=== PATIENT | female | born 1940 | race Caucasian/White ===

== ENCOUNTER 2020-09-27 16:51 | Inpatient (IN) | payer OTHER, MEDICARE ==
[2020-09-27 17:19] VITALS: BMI 45.7
[2020-09-27] MEDS ORDERED: DEXAMETHASONE SOD PHOSPHATE 4 MG/1 ML VIAL IVPUSH ONE (18:18)
[2020-09-27] MEDS ORDERED: AZITHROMYCIN IVPB 500 MG in DEXTROSE 5%-WATER - 250 ML IVPB ONE (18:20)
[2020-09-27] MEDS ORDERED: CEFTRIAXONE 1,000 MG in DEXTROSE 5%-WATER - 50 ML IVPB ONE (18:20)
[2020-09-27 19:18] LABS: BASO % 0.9 % (0-2.0); HEMATOCRIT 40.9 % (32.4-45.2); LYMPH % 12.5 % (8-40); MCH 27.1 pg (25.7-33.7); MCHC 31.8 g/dl (32.0-36.0); MEAN PLT VOLUME 9.1 fl (7.5-11.1); MONO % 9.2 % (3.8-10.2); NEUT % 77.4 % (42.8-82.8); PLATELET COUNT 214 K/MM3 (134-434); RBC 4.82 M/mm3 (3.60-5.2); RDW 14.9 % (11.6-15.6); VENOUS BASE EXCESS -3.7 mmol/L (-2-2); VENOUS O2 SATURATION 61.7 % (70-80); VENOUS PCO2 39.9 mmHg (38-52); VENOUS PH 7.35 (7.310-7.410); WHITE BLOOD COUNT 11.2 K/mm3 (4.0-10.0)
[2020-09-27 19:23] LABS: EPI CELLS >36 /uL (0-25.1); HYALINE CASTS 8 /uL (0-3.1); PH,URINE 5.5 (5.0-8.0); URINE APPEARANCE CLOUDY; URINE BACTERIA 13 /uL (0-1359); URINE BILIRUBIN NEGATIVE (NEGATIVE); URINE COLOR YELLOW; URINE GLUCOSE (UA) TRACE (NEGATIVE); URINE KETONE TRACE (NEGATIVE); URINE LEUK ESTERASE NEGATIVE (NEGATIVE); URINE NITRITE NEGATIVE (NEGATIVE); URINE PROTEIN 3+ (NEGATIVE); URINE RBC 7 /uL (0-23.9); URINE UROBILINOGEN 0.2 mg/dL (0.2-1.0); URINE WBC 16 /uL (0-25.8)
[2020-09-27 19:24] LABS: INR 1.16 (0.83-1.09)
[2020-09-27 19:38] LABS: CHLORIDE 104 mmol/L (98-107); POTASSIUM 4.5 mmol/L (3.5-5.1); SODIUM 136 mmol/L (136-145)
[2020-09-27 19:40] LABS: CALCIUM 8.6 mg/dL (8.5-10.1)
[2020-09-27 19:41] LABS: ALBUMIN 2.8 g/dl (3.4-5.0); ANION GAP 8 MMOL/L (8-16); BLOOD UREA NITROGEN 25.2 mg/dL (7-18); CO2 25 mmol/L (21-32); GLUCOSE,RANDOM 251 mg/dL (74-106)
[2020-09-27 19:43] LABS: BILIRUBIN,DIRECT 0.1 mg/dL (0.0-0.2)
[2020-09-27 19:44] LABS: CREATININE 1.5 mg/dL (0.55-1.3); SGOT/AST 78 U/L (15-37); SGPT/ALT 48 U/L (13-61)
[2020-09-27 19:45] LABS: BILIRUBIN,TOTAL 0.3 mg/dL (0.2-1); TOT PROT 6.9 g/dl (6.4-8.2)
[2020-09-27 19:47] LABS: ALK PHOS 92 U/L (45-117)
[2020-09-27] MEDS ORDERED: CEFTRIAXONE 1 GM/50 ML BAG ONE ×2 (19:59→20:09)
[2020-09-27] MEDS ORDERED: AZITHROMYCIN IVPB 500 MG/250 ML BAG IVPB ONE ×2 (20:00→20:09)
[2020-09-27] MEDS ORDERED: DEXAMETHASONE 4 MG TABLET (FP) PO ONE (20:30)
[2020-09-27] MEDS ORDERED: ENOXAPARIN NA (PORCINE) 40 MG/0.4 ML DISP.SYRIN SQ ONE ×2 (20:30→23:30)
[2020-09-27 20:33] LABS: LDH 581 U/L (84-246)
[2020-09-27] MEDS ORDERED: DEXAMETHASONE SOD PHOSPHATE 10 MG/1 ML VIAL ONE (20:36)
[2020-09-27 20:50] LABS: N-TERMINAL BNP 284.6 pg/ml (5-450)
[2020-09-27] MEDS ORDERED: APIXABAN 5 MG TABLET PO SCH (22:00)
[2020-09-27] MEDS ORDERED: ACETAMINOPHEN 325 MG TABLET (FP) PO PRN (22:43)
[2020-09-27] MEDS ORDERED: ACETAMINOPHEN 325 MG TABLET (FP) ONE (23:30)
[2020-09-27] MEDS: ENOXAPARIN NA (PORCINE) 120 MG/0.8 ML DISP.SYRIN SQ SCH (23:42)
[2020-09-28 07:36] LABS: HEMATOCRIT 36.6 % (32.4-45.2); HEMOGLOBIN 11.8 GM/dL (10.7-15.3); MCH 27.3 pg (25.7-33.7); MCHC 32.1 g/dl (32.0-36.0); MEAN CELL VOLUME 84.9 fl (80-96); MEAN PLT VOLUME 8.9 fl (7.5-11.1); PLATELET COUNT 200 K/MM3 (134-434); RBC 4.31 M/mm3 (3.60-5.2); RDW 15.2 % (11.6-15.6); WHITE BLOOD COUNT 9.9 K/mm3 (4.0-10.0)
[2020-09-28 07:47] LABS: POTASSIUM 4.7 mmol/L (3.5-5.1)
[2020-09-28 07:53] LABS: CALCIUM 7.6 mg/dL (8.5-10.1)
[2020-09-28 07:56] LABS: ALBUMIN 2.2 g/dl (3.4-5.0); BLOOD UREA NITROGEN 34.5 mg/dL (7-18); MAGNESIUM 2.1 mg/dL (1.8-2.4)
[2020-09-28 07:57] LABS: PHOSPHOROUS 3.7 mg/dL (2.5-4.9)
[2020-09-28 07:58] LABS: BILIRUBIN,TOTAL 0.4 mg/dL (0.2-1)
[2020-09-28 07:59] LABS: CREATININE 1.6 mg/dL (0.55-1.3); TOT PROT 6.2 g/dl (6.4-8.2)
[2020-09-28] MEDS ORDERED: ASCORBIC ACID 500 MG TABLET (FP) ONE ×2 (09:11→22:43)
[2020-09-28] MEDS ORDERED: DEXAMETHASONE SOD PHOSPHATE 10 MG/1 ML VIAL ONE (09:12)
[2020-09-28] MEDS ORDERED: AZITHROMYCIN IVPB 500 MG/250 ML BAG IVPB ONE ×2 (09:12→13:21)
[2020-09-28] MEDS ORDERED: CEFTRIAXONE 1 GM/50 ML BAG ONE (09:12)
[2020-09-28] MEDS ORDERED: ZINC SULFATE 220 MG CAPSULE (FP) ONE (09:12)
[2020-09-28] MEDS ORDERED: CHOLECALCIFEROL (VIT D3) 1,000 UNIT (25 MCG) TABLET PO SCH (10:00)
[2020-09-28] MEDS ORDERED: CEFTRIAXONE 1,000 GM in DEXTROSE 5%-WATER - 50 ML IVPB SCH (10:00)
[2020-09-28] MEDS: INSULIN SLIDING SCALE (NOVOLOG) 1 VIAL SQ SCH ×4 (11:30→23:35)
[2020-09-28] MEDS: DEXAMETHASONE SOD PHOSPHATE 10 MG/1 ML VIAL IVPUSH SCH (11:33)
[2020-09-28] MEDS: ZINC SULFATE 220 MG CAPSULE (FP) PO SCH (11:34)
[2020-09-28] MEDS: ASCORBIC ACID 500 MG TABLET (FP) PO SCH ×2 (11:35→23:36)
[2020-09-28] MEDS: CEFTRIAXONE 1 GM in DEXTROSE 5%-WATER - 50 ML IVPB SCH (11:35)
[2020-09-28] MEDS: CHOLECALCIFEROL (VIT D3) 1,000 UNIT (25 MCG) TABLET PO SCH (11:36)
[2020-09-28] MEDS: AZITHROMYCIN IVPB 500 MG/250 ML BAG IVPB SCH (14:03)
[2020-09-28] MEDS: ENOXAPARIN NA (PORCINE) 120 MG/0.8 ML DISP.SYRIN SQ SCH ×2 (15:34→23:35)
[2020-09-28] MEDS ORDERED: ACETAMINOPHEN 1000 MG/100 ML VIAL (NON FORMULARY) IVPB ONE (21:48)
[2020-09-28] MEDS ORDERED: ACETAMINOPHEN INJECTION 100 ML IVPB ONE (21:55)
[2020-09-28] MEDS ORDERED: INSULIN (LEVEMIR) 100 UNITS/ML UNITS SQ SCH (22:00)
[2020-09-28] MEDS ORDERED: ENOXAPARIN NA (PORCINE) 40 MG/0.4 ML DISP.SYRIN SQ ONE (22:43)
[2020-09-29] MEDS: INSULIN SLIDING SCALE (NOVOLOG) 1 VIAL SQ SCH ×4 (06:31→21:28)
[2020-09-29 07:18] LABS: BASO % 0.3 % (0-2.0); HEMATOCRIT 37.5 % (32.4-45.2); HEMOGLOBIN 12.1 GM/dL (10.7-15.3); LYMPH % 14.9 % (8-40); MCH 27.3 pg (25.7-33.7); MCHC 32.4 g/dl (32.0-36.0); MEAN CELL VOLUME 84.3 fl (80-96); MEAN PLT VOLUME 8.3 fl (7.5-11.1); MONO % 12.1 % (3.8-10.2); NEUT % 72.7 % (42.8-82.8); PLATELET COUNT 262 K/MM3 (134-434); RBC 4.44 M/mm3 (3.60-5.2); RDW 15.2 % (11.6-15.6); WHITE BLOOD COUNT 9.7 K/mm3 (4.0-10.0)
[2020-09-29 07:35] LABS: POTASSIUM 4.2 mmol/L (3.5-5.1)
[2020-09-29 07:41] LABS: CALCIUM 7.5 mg/dL (8.5-10.1); MAGNESIUM 2.2 mg/dL (1.8-2.4)
[2020-09-29 07:42] LABS: ALBUMIN 2.3 g/dl (3.4-5.0)
[2020-09-29 07:44] LABS: PHOSPHOROUS 2.9 mg/dL (2.5-4.9)
[2020-09-29 07:45] LABS: CREATININE 1.2 mg/dL (0.55-1.3)
[2020-09-29 07:46] LABS: BILIRUBIN,TOTAL 0.8 mg/dL (0.2-1); TOT PROT 6.5 g/dl (6.4-8.2)
[2020-09-29] MEDS ORDERED: cefTRIAXone SODIUM 1 GM VIAL ONE (09:56)
[2020-09-29] MEDS ORDERED: DEXTROSE 5%-WATER - 50 ML IVPB ONE (09:56)
[2020-09-29] MEDS: DEXAMETHASONE SOD PHOSPHATE 10 MG/1 ML VIAL IVPUSH SCH (10:08)
[2020-09-29] MEDS: ZINC SULFATE 220 MG CAPSULE (FP) PO SCH (10:08)
[2020-09-29] MEDS: CEFTRIAXONE 1 GM in DEXTROSE 5%-WATER - 50 ML IVPB SCH (10:08)
[2020-09-29] MEDS: AZITHROMYCIN IVPB 500 MG/250 ML BAG IVPB SCH (10:09)
[2020-09-29] MEDS: CHOLECALCIFEROL (VIT D3) 1,000 UNIT (25 MCG) TABLET PO SCH (10:09)
[2020-09-29] MEDS: ASCORBIC ACID 500 MG TABLET (FP) PO SCH ×2 (10:09→21:29)
[2020-09-29] MEDS: ENOXAPARIN NA (PORCINE) 120 MG/0.8 ML DISP.SYRIN SQ SCH ×2 (12:00→21:28)
[2020-09-29] MEDS ORDERED: PT OWN MED DRAWER 7, Y5N ONE ×2 (12:14→21:25)
[2020-09-29] MEDS: INSULIN (LEVEMIR) 100 UNITS/ML UNITS SQ SCH ×2 (12:15→21:27)
[2020-09-29] MEDS ORDERED: REMDESIVIR 200 MG in SODIUM CHLORIDE 210 ML IVPB ONE (15:35)
[2020-09-30 07:04] LABS: POTASSIUM 4.6 mmol/L (3.5-5.1)
[2020-09-30 07:05] LABS: BASO % 0.3 % (0-2.0); HEMATOCRIT 37.7 % (32.4-45.2); LYMPH % 16.7 % (8-40); MCH 27.2 pg (25.7-33.7); MEAN CELL VOLUME 85.1 fl (80-96); MEAN PLT VOLUME 8.2 fl (7.5-11.1); PLATELET COUNT 288 K/MM3 (134-434); RBC 4.43 M/mm3 (3.60-5.2); RDW 14.7 % (11.6-15.6); WHITE BLOOD COUNT 10.6 K/mm3 (4.0-10.0)
[2020-09-30 07:10] LABS: ALBUMIN 2.2 g/dl (3.4-5.0); BLOOD UREA NITROGEN 38.2 mg/dL (7-18); MAGNESIUM 2.3 mg/dL (1.8-2.4)
[2020-09-30 07:13] LABS: PHOSPHOROUS 2.5 mg/dL (2.5-4.9)
[2020-09-30 07:14] LABS: BILIRUBIN,TOTAL 0.9 mg/dL (0.2-1); TOT PROT 6.5 g/dl (6.4-8.2)
[2020-09-30] MEDS: INSULIN (LEVEMIR) 100 UNITS/ML UNITS SQ SCH ×2 (07:23→22:07)
[2020-09-30] MEDS: INSULIN SLIDING SCALE (NOVOLOG) 1 VIAL SQ SCH ×4 (07:25→22:06)
[2020-09-30] MEDS ORDERED: INSULIN (LEVEMIR) 100 UNITS/ML UNITS SQ ONE (08:12)
[2020-09-30] MEDS ORDERED: INSULIN (LEVEMIR) 100 UNITS/ML UNITS SQ SCH ×3 (08:13→11:45)
[2020-09-30] MEDS ORDERED: PT OWN MED DRAWER 7, Y5N ONE ×2 (09:11→21:59)
[2020-09-30] MEDS: DEXAMETHASONE SOD PHOSPHATE 10 MG/1 ML VIAL IVPUSH SCH (09:31)
[2020-09-30] MEDS: CHOLECALCIFEROL (VIT D3) 1,000 UNIT (25 MCG) TABLET PO SCH (09:32)
[2020-09-30] MEDS: ENOXAPARIN NA (PORCINE) 120 MG/0.8 ML DISP.SYRIN SQ SCH ×2 (09:32→22:07)
[2020-09-30] MEDS: ZINC SULFATE 220 MG CAPSULE (FP) PO SCH (09:32)
[2020-09-30] MEDS: ASCORBIC ACID 500 MG TABLET (FP) PO SCH ×2 (09:32→22:03)
[2020-09-30] MEDS: Insulin (LOG) Aspart 100 UNITS/ML VIAL SQ SCH ×2 (11:58→17:19)
[2020-09-30] MEDS ORDERED: INSULIN (NOVOLOG) ASPART 100 UNITS/ML 10ML VIAL SQ ONE (14:32)
[2020-09-30] MEDS: REMDESIVIR 100 MG in SODIUM CHLORIDE 230 ML IVPB SCH (17:46)
[2020-09-30] MEDS: POLYETHYLENE GLYCOL 3350 119 GM BTL PO SCH (17:46)
[2020-09-30] MEDS: DOCUSATE SODIUM 100 MG CAPSULE (FP) PO SCH (22:03)
[2020-09-30] MEDS: SENNOSIDES 8.6MG TABLET (FP) PO SCH (22:03)
[2020-10-01] MEDS: INSULIN (LEVEMIR) 100 UNITS/ML UNITS SQ SCH ×2 (06:23→22:27)
[2020-10-01] MEDS: DOCUSATE SODIUM 100 MG CAPSULE (FP) PO SCH ×3 (06:23→22:16)
[2020-10-01] MEDS: INSULIN SLIDING SCALE (NOVOLOG) 1 VIAL SQ SCH ×4 (06:24→22:26)
[2020-10-01] MEDS ORDERED: INSULIN (NOVOLOG MIX 70/30) 100 UNITS/ML MDV SQ SCH ×2 (07:00→16:30)
[2020-10-01 07:12] LABS: EOS % 0.1 % (0-4.5); HEMATOCRIT 35.7 % (32.4-45.2); HEMOGLOBIN 11.6 GM/dL (10.7-15.3); LYMPH % 16.8 % (8-40); MCH 27.2 pg (25.7-33.7); MCHC 32.4 g/dl (32.0-36.0); MEAN PLT VOLUME 7.9 fl (7.5-11.1); MONO % 14.6 % (3.8-10.2); NEUT % 67.5 % (42.8-82.8); PLATELET COUNT 315 K/MM3 (134-434); RBC 4.25 M/mm3 (3.60-5.2); RDW 14.7 % (11.6-15.6); WHITE BLOOD COUNT 10.8 K/mm3 (4.0-10.0)
[2020-10-01 07:32] LABS: POTASSIUM 4.5 mmol/L (3.5-5.1)
[2020-10-01 07:34] LABS: ALBUMIN 2.3 g/dl (3.4-5.0); CALCIUM 8.3 mg/dL (8.5-10.1)
[2020-10-01 07:35] LABS: BLOOD UREA NITROGEN 32.4 mg/dL (7-18); MAGNESIUM 2.2 mg/dL (1.8-2.4)
[2020-10-01 07:38] LABS: CREATININE 0.8 mg/dL (0.55-1.3); PHOSPHOROUS 2.8 mg/dL (2.5-4.9)
[2020-10-01 07:39] LABS: BILIRUBIN,TOTAL 1.1 mg/dL (0.2-1); TOT PROT 6.4 g/dl (6.4-8.2)
[2020-10-01] MEDS ORDERED: PT OWN MED DRAWER 7, Y5N ONE ×2 (10:33→21:52)
[2020-10-01] MEDS: ZINC SULFATE 220 MG CAPSULE (FP) PO SCH (10:38)
[2020-10-01] MEDS: ASCORBIC ACID 500 MG TABLET (FP) PO SCH ×2 (10:38→22:16)
[2020-10-01] MEDS: SENNOSIDES 8.6MG TABLET (FP) PO SCH ×2 (10:38→22:16)
[2020-10-01] MEDS: CHOLECALCIFEROL (VIT D3) 1,000 UNIT (25 MCG) TABLET PO SCH (10:38)
[2020-10-01] MEDS: POLYETHYLENE GLYCOL 3350 119 GM BTL PO SCH (10:39)
[2020-10-01] MEDS: DEXAMETHASONE SOD PHOSPHATE 10 MG/1 ML VIAL IVPUSH SCH (10:39)
[2020-10-01] MEDS: ENOXAPARIN NA (PORCINE) 120 MG/0.8 ML DISP.SYRIN SQ SCH ×2 (10:41→22:16)
[2020-10-01] MEDS: LISINOPRIL 5 MG TABLET PO SCH (13:18)
[2020-10-01] MEDS: REMDESIVIR 100 MG in SODIUM CHLORIDE 230 ML IVPB SCH (16:45)
[2020-10-01] MEDS: INSULIN (NOVOLOG MIX 70/30) 100 UNITS/ML MDV SQ SCH (17:37)
[2020-10-02] MEDS: DOCUSATE SODIUM 100 MG CAPSULE (FP) PO SCH ×3 (06:05→21:39)
[2020-10-02] MEDS: INSULIN (LEVEMIR) 100 UNITS/ML UNITS SQ SCH ×2 (06:05→21:39)
[2020-10-02] MEDS: INSULIN (NOVOLOG MIX 70/30) 100 UNITS/ML MDV SQ SCH ×2 (06:06→17:15)
[2020-10-02] MEDS: INSULIN SLIDING SCALE (NOVOLOG) 1 VIAL SQ SCH ×4 (06:06→21:40)
[2020-10-02 07:14] LABS: BASO % 0.1 % (0-2.0); EOS % 0.3 % (0-4.5); HEMATOCRIT 35.8 % (32.4-45.2); HEMOGLOBIN 11.4 GM/dL (10.7-15.3); LYMPH % 17.6 % (8-40); MCH 26.7 pg (25.7-33.7); MCHC 31.8 g/dl (32.0-36.0); MEAN CELL VOLUME 84.1 fl (80-96); MEAN PLT VOLUME 7.9 fl (7.5-11.1); MONO % 13.5 % (3.8-10.2); NEUT % 68.5 % (42.8-82.8); PLATELET COUNT 304 K/MM3 (134-434); RBC 4.26 M/mm3 (3.60-5.2); RDW 14.9 % (11.6-15.6); WHITE BLOOD COUNT 12.1 K/mm3 (4.0-10.0)
[2020-10-02 07:23] LABS: POTASSIUM 4.5 mmol/L (3.5-5.1)
[2020-10-02 07:29] LABS: CALCIUM 8.4 mg/dL (8.5-10.1)
[2020-10-02 07:30] LABS: ALBUMIN 2.4 g/dl (3.4-5.0); BLOOD UREA NITROGEN 28.4 mg/dL (7-18)
[2020-10-02 07:31] LABS: CREATININE 0.8 mg/dL (0.55-1.3)
[2020-10-02 07:33] LABS: BILIRUBIN,TOTAL 0.4 mg/dL (0.2-1); PHOSPHOROUS 3.6 mg/dL (2.5-4.9); TOT PROT 6.3 g/dl (6.4-8.2)
[2020-10-02] MEDS: ZINC SULFATE 220 MG CAPSULE (FP) PO SCH (10:25)
[2020-10-02] MEDS: LISINOPRIL 5 MG TABLET PO SCH (10:25)
[2020-10-02] MEDS: SENNOSIDES 8.6MG TABLET (FP) PO SCH ×2 (10:25→21:39)
[2020-10-02] MEDS: CHOLECALCIFEROL (VIT D3) 1,000 UNIT (25 MCG) TABLET PO SCH (10:25)
[2020-10-02] MEDS: DEXAMETHASONE SOD PHOSPHATE 10 MG/1 ML VIAL IVPUSH SCH (10:25)
[2020-10-02] MEDS: ASCORBIC ACID 500 MG TABLET (FP) PO SCH ×2 (10:25→21:39)
[2020-10-02] MEDS: ENOXAPARIN NA (PORCINE) 120 MG/0.8 ML DISP.SYRIN SQ SCH (10:26)
[2020-10-02] MEDS: POLYETHYLENE GLYCOL 3350 119 GM BTL PO SCH (10:27)
[2020-10-02] MEDS: REMDESIVIR 100 MG in SODIUM CHLORIDE 230 ML IVPB SCH (17:15)
[2020-10-02 19:45] LABS: BASO % 0.2 % (0-2.0); EOS % 0.2 % (0-4.5); HEMATOCRIT 35.3 % (32.4-45.2); HEMOGLOBIN 11.5 GM/dL (10.7-15.3); LYMPH % 10.8 % (8-40); MCH 27.6 pg (25.7-33.7); MCHC 32.5 g/dl (32.0-36.0); MEAN PLT VOLUME 7.8 fl (7.5-11.1); MONO % 10.3 % (3.8-10.2); NEUT % 78.5 % (42.8-82.8); PLATELET COUNT 287 K/MM3 (134-434); RBC 4.15 M/mm3 (3.60-5.2); RDW 14.6 % (11.6-15.6); WHITE BLOOD COUNT 11.4 K/mm3 (4.0-10.0)
[2020-10-03] MEDS: INSULIN SLIDING SCALE (NOVOLOG) 1 VIAL SQ SCH ×4 (06:38→22:00)
[2020-10-03] MEDS: INSULIN (LEVEMIR) 100 UNITS/ML UNITS SQ SCH ×2 (06:43→21:58)
[2020-10-03] MEDS: INSULIN (NOVOLOG MIX 70/30) 100 UNITS/ML MDV SQ SCH ×2 (06:43→16:53)
[2020-10-03] MEDS: DOCUSATE SODIUM 100 MG CAPSULE (FP) PO SCH ×3 (06:47→21:58)
[2020-10-03 07:05] LABS: BASO % 0.2 % (0-2.0); EOS % 1.2 % (0-4.5); HEMATOCRIT 36.6 % (32.4-45.2); HEMOGLOBIN 11.9 GM/dL (10.7-15.3); LYMPH % 17.4 % (8-40); MCH 27.1 pg (25.7-33.7); MCHC 32.6 g/dl (32.0-36.0); MEAN CELL VOLUME 83.2 fl (80-96); MEAN PLT VOLUME 7.9 fl (7.5-11.1); MONO % 11.5 % (3.8-10.2); NEUT % 69.7 % (42.8-82.8); PLATELET COUNT 324 K/MM3 (134-434); RDW 14.7 % (11.6-15.6); WHITE BLOOD COUNT 13.5 K/mm3 (4.0-10.0)
[2020-10-03 07:23] LABS: POTASSIUM 4.3 mmol/L (3.5-5.1)
[2020-10-03 07:35] LABS: CALCIUM 8.4 mg/dL (8.5-10.1)
[2020-10-03 07:36] LABS: ALBUMIN 2.2 g/dl (3.4-5.0); BLOOD UREA NITROGEN 25.7 mg/dL (7-18)
[2020-10-03 07:39] LABS: CREATININE 0.7 mg/dL (0.55-1.3)
[2020-10-03 07:40] LABS: BILIRUBIN,TOTAL 0.5 mg/dL (0.2-1); TOT PROT 6.1 g/dl (6.4-8.2)
[2020-10-03] MEDS ORDERED: PT OWN MED DRAWER 7, Y5N ONE (10:12)
[2020-10-03] MEDS ORDERED: FAMOTIDINE 20 MG TABLET PO SCH ×2 (10:15)
[2020-10-03] MEDS: DEXAMETHASONE SOD PHOSPHATE 10 MG/1 ML VIAL IVPUSH SCH (10:16)
[2020-10-03] MEDS: ASCORBIC ACID 500 MG TABLET (FP) PO SCH ×2 (10:17→21:58)
[2020-10-03] MEDS: CHOLECALCIFEROL (VIT D3) 1,000 UNIT (25 MCG) TABLET PO SCH (10:17)
[2020-10-03] MEDS: LISINOPRIL 5 MG TABLET PO SCH (12:23)
[2020-10-03] MEDS: PANTOPRAZOLE SODIUM 40 MG VIAL IVPUSH SCH ×2 (12:23→21:57)
[2020-10-03] MEDS: ZINC SULFATE 220 MG CAPSULE (FP) PO SCH (12:23)
[2020-10-03] MEDS: POLYETHYLENE GLYCOL 3350 119 GM BTL PO SCH (14:26)
[2020-10-03] MEDS: SENNOSIDES 8.6MG TABLET (FP) PO SCH (14:26)
[2020-10-03] MEDS: REMDESIVIR 100 MG in SODIUM CHLORIDE 230 ML IVPB SCH (18:30)
[2020-10-04] MEDS: DOCUSATE SODIUM 100 MG CAPSULE (FP) PO SCH ×3 (05:51→22:24)
[2020-10-04] MEDS: INSULIN (NOVOLOG MIX 70/30) 100 UNITS/ML MDV SQ SCH ×3 (06:02→17:20)
[2020-10-04] MEDS: INSULIN SLIDING SCALE (NOVOLOG) 1 VIAL SQ SCH ×4 (06:03→22:26)
[2020-10-04] MEDS: INSULIN (LEVEMIR) 100 UNITS/ML UNITS SQ SCH ×3 (06:03→22:31)
[2020-10-04 08:10] LABS: BASO % 0.1 % (0-2.0); EOS % 0.7 % (0-4.5); HEMATOCRIT 36.8 % (32.4-45.2); LYMPH % 13.7 % (8-40); MCH 27.8 pg (25.7-33.7); MCHC 32.6 g/dl (32.0-36.0); MEAN CELL VOLUME 85.2 fl (80-96); MEAN PLT VOLUME 8.1 fl (7.5-11.1); MONO % 11.1 % (3.8-10.2); NEUT % 74.4 % (42.8-82.8); PLATELET COUNT 311 K/MM3 (134-434); RBC 4.32 M/mm3 (3.60-5.2); RDW 14.9 % (11.6-15.6); WHITE BLOOD COUNT 11.5 K/mm3 (4.0-10.0)
[2020-10-04 08:27] LABS: POTASSIUM 4.4 mmol/L (3.5-5.1)
[2020-10-04 08:31] LABS: ALBUMIN 2.3 g/dl (3.4-5.0); BLOOD UREA NITROGEN 23.4 mg/dL (7-18)
[2020-10-04 08:34] LABS: CREATININE 0.8 mg/dL (0.55-1.3)
[2020-10-04 08:35] LABS: BILIRUBIN,TOTAL 0.6 mg/dL (0.2-1)
[2020-10-04 08:36] LABS: TOT PROT 6.2 g/dl (6.4-8.2)
[2020-10-04] MEDS ORDERED: INSULIN (NOVOLOG) ASPART 100 UNITS/ML 10ML VIAL ONE (11:04)
[2020-10-04] MEDS: LISINOPRIL 5 MG TABLET PO SCH (11:05)
[2020-10-04 11:06] LABS: ANISOCYTOSIS 0; MACROCYTOSIS 0; PLATELET ESTIMATE NORMAL
[2020-10-04] MEDS: CHOLECALCIFEROL (VIT D3) 1,000 UNIT (25 MCG) TABLET PO SCH (11:06)
[2020-10-04] MEDS: PANTOPRAZOLE SODIUM 40 MG VIAL IVPUSH SCH ×2 (11:06→22:26)
[2020-10-04] MEDS: ZINC SULFATE 220 MG CAPSULE (FP) PO SCH (11:06)
[2020-10-04] MEDS: ASCORBIC ACID 500 MG TABLET (FP) PO SCH ×2 (11:06→22:24)
[2020-10-04] MEDS: DEXAMETHASONE SOD PHOSPHATE 10 MG/1 ML VIAL IVPUSH SCH (11:06)
[2020-10-04] MEDS ORDERED: MORPHINE SULFATE 2 MG/ML VIAL IVPUSH ONE (16:05)
[2020-10-04] MEDS ORDERED: INSULIN (LEVEMIR) 100 UNITS/ML UNITS SQ SCH (16:53)
[2020-10-04] MEDS ORDERED: INSULIN (NOVOLOG MIX 70/30) 100 UNITS/ML MDV SQ SCH (16:54)
[2020-10-05] MEDS: DOCUSATE SODIUM 100 MG CAPSULE (FP) PO SCH ×3 (06:25→21:54)
[2020-10-05] MEDS: INSULIN (LEVEMIR) 100 UNITS/ML UNITS SQ SCH ×2 (06:25→22:05)
[2020-10-05] MEDS: INSULIN (NOVOLOG MIX 70/30) 100 UNITS/ML MDV SQ SCH ×2 (06:26→18:25)
[2020-10-05] MEDS: INSULIN SLIDING SCALE (NOVOLOG) 1 VIAL SQ SCH ×4 (06:27→22:04)
[2020-10-05 08:23] LABS: BASO % 0.5 % (0-2.0); EOS % 0.6 % (0-4.5); HEMATOCRIT 37.2 % (32.4-45.2); HEMOGLOBIN 11.8 GM/dL (10.7-15.3); LYMPH % 13.3 % (8-40); MCH 27.1 pg (25.7-33.7); MCHC 31.8 g/dl (32.0-36.0); MEAN CELL VOLUME 85.2 fl (80-96); MEAN PLT VOLUME 8.4 fl (7.5-11.1); MONO % 13.3 % (3.8-10.2); NEUT % 72.3 % (42.8-82.8); PLATELET COUNT 293 K/MM3 (134-434); RBC 4.37 M/mm3 (3.60-5.2); RDW 14.9 % (11.6-15.6); WHITE BLOOD COUNT 11.8 K/mm3 (4.0-10.0)
[2020-10-05 09:08] LABS: POTASSIUM 4.5 mmol/L (3.5-5.1)
[2020-10-05 09:15] LABS: ALBUMIN 2.3 g/dl (3.4-5.0); BLOOD UREA NITROGEN 23.8 mg/dL (7-18); CALCIUM 8.6 mg/dL (8.5-10.1)
[2020-10-05 09:18] LABS: CREATININE 0.8 mg/dL (0.55-1.3); PHOSPHOROUS 3.2 mg/dL (2.5-4.9)
[2020-10-05 09:20] LABS: BILIRUBIN,TOTAL 0.8 mg/dL (0.2-1); TOT PROT 6.1 g/dl (6.4-8.2)
[2020-10-05] MEDS ORDERED: PT OWN MED DRAWER 7, Y5N ONE (11:13)
[2020-10-05] MEDS: LISINOPRIL 5 MG TABLET PO SCH (11:18)
[2020-10-05] MEDS: ZINC SULFATE 220 MG CAPSULE (FP) PO SCH (11:18)
[2020-10-05] MEDS: ASCORBIC ACID 500 MG TABLET (FP) PO SCH ×2 (11:18→21:54)
[2020-10-05] MEDS: CHOLECALCIFEROL (VIT D3) 1,000 UNIT (25 MCG) TABLET PO SCH (11:18)
[2020-10-05] MEDS: DEXAMETHASONE SOD PHOSPHATE 10 MG/1 ML VIAL IVPUSH SCH (11:19)
[2020-10-05] MEDS: PANTOPRAZOLE SODIUM 40 MG VIAL IVPUSH SCH ×2 (11:21→21:54)
[2020-10-05] MEDS ORDERED: INSULIN (NOVOLOG MIX 70/30) 100 UNITS/ML MDV SQ ONE (19:49)
[2020-10-05] MEDS ORDERED: INSULIN (NOVOLOG) ASPART 100 UNITS/ML 10ML VIAL ONE (19:49)
[2020-10-06] MEDS: DOCUSATE SODIUM 100 MG CAPSULE (FP) PO SCH ×3 (06:12→21:22)
[2020-10-06] MEDS: INSULIN SLIDING SCALE (NOVOLOG) 1 VIAL SQ SCH ×4 (06:17→21:31)
[2020-10-06] MEDS: INSULIN (LEVEMIR) 100 UNITS/ML UNITS SQ SCH ×2 (07:03→21:31)
[2020-10-06] MEDS: INSULIN (NOVOLOG MIX 70/30) 100 UNITS/ML MDV SQ SCH ×2 (07:03→16:50)
[2020-10-06 08:16] LABS: BASO % 0.3 % (0-2.0); HEMATOCRIT 38.1 % (32.4-45.2); HEMOGLOBIN 12.1 GM/dL (10.7-15.3); LYMPH % 16.7 % (8-40); MCH 26.9 pg (25.7-33.7); MCHC 31.8 g/dl (32.0-36.0); MEAN CELL VOLUME 84.5 fl (80-96); MEAN PLT VOLUME 8.5 fl (7.5-11.1); MONO % 15.2 % (3.8-10.2); NEUT % 66.8 % (42.8-82.8); PLATELET COUNT 329 K/MM3 (134-434); RBC 4.51 M/mm3 (3.60-5.2); RDW 14.7 % (11.6-15.6); WHITE BLOOD COUNT 11.3 K/mm3 (4.0-10.0)
[2020-10-06 08:28] LABS: POTASSIUM 4.6 mmol/L (3.5-5.1)
[2020-10-06 08:35] LABS: ALBUMIN 2.4 g/dl (3.4-5.0); CALCIUM 8.2 mg/dL (8.5-10.1); MAGNESIUM 2.1 mg/dL (1.8-2.4)
[2020-10-06 08:37] LABS: BILIRUBIN,TOTAL 0.6 mg/dL (0.2-1); PHOSPHOROUS 3.5 mg/dL (2.5-4.9)
[2020-10-06 08:38] LABS: TOT PROT 6.3 g/dl (6.4-8.2)
[2020-10-06 08:39] LABS: CREATININE 0.8 mg/dL (0.55-1.3)
[2020-10-06] MEDS ORDERED: PT OWN MED DRAWER 7, Y5N ONE ×2 (10:22→13:31)
[2020-10-06] MEDS: ZINC SULFATE 220 MG CAPSULE (FP) PO SCH (10:33)
[2020-10-06] MEDS: ASCORBIC ACID 500 MG TABLET (FP) PO SCH ×2 (10:34→21:22)
[2020-10-06] MEDS: CHOLECALCIFEROL (VIT D3) 1,000 UNIT (25 MCG) TABLET PO SCH (10:34)
[2020-10-06] MEDS: LISINOPRIL 5 MG TABLET PO SCH (10:34)
[2020-10-06] MEDS: DEXAMETHASONE SOD PHOSPHATE 10 MG/1 ML VIAL IVPUSH SCH (10:34)
[2020-10-06] MEDS: PANTOPRAZOLE SODIUM 40 MG VIAL IVPUSH SCH ×2 (10:36→21:22)
[2020-10-06] MEDS ORDERED: INSULIN (NOVOLOG) ASPART 100 UNITS/ML 10ML VIAL ONE ×3 (12:00→21:12)
[2020-10-06] MEDS: ENOXAPARIN NA (PORCINE) 40 MG/0.4 ML DISP.SYRIN SQ SCH (16:50)
[2020-10-06] MEDS ORDERED: INSULIN (NOVOLOG MIX 70/30) 100 UNITS/ML MDV SQ ONE (17:16)
[2020-10-06] MEDS ORDERED: APIXABAN 5 MG TABLET PO SCH (22:00)
[2020-10-07] MEDS: DOCUSATE SODIUM 100 MG CAPSULE (FP) PO SCH ×3 (06:33→21:36)
[2020-10-07] MEDS: INSULIN SLIDING SCALE (NOVOLOG) 1 VIAL SQ SCH ×4 (06:34→21:41)
[2020-10-07] MEDS: INSULIN (NOVOLOG MIX 70/30) 100 UNITS/ML MDV SQ SCH ×2 (08:08→16:39)
[2020-10-07] MEDS: INSULIN (LEVEMIR) 100 UNITS/ML UNITS SQ SCH ×2 (08:09→21:42)
[2020-10-07] MEDS ORDERED: INSULIN (NOVOLOG) ASPART 100 UNITS/ML 10ML VIAL ONE (08:13)
[2020-10-07 08:20] LABS: BASO % 0.7 % (0-2.0); EOS % 1.2 % (0-4.5); HEMATOCRIT 37.5 % (32.4-45.2); LYMPH % 21.4 % (8-40); MCH 27.2 pg (25.7-33.7); MEAN CELL VOLUME 84.8 fl (80-96); MEAN PLT VOLUME 8.3 fl (7.5-11.1); MONO % 15.3 % (3.8-10.2); NEUT % 61.4 % (42.8-82.8); PLATELET COUNT 288 K/MM3 (134-434); RBC 4.42 M/mm3 (3.60-5.2); RDW 14.8 % (11.6-15.6); WHITE BLOOD COUNT 10.4 K/mm3 (4.0-10.0)
[2020-10-07 08:35] LABS: POTASSIUM 4.4 mmol/L (3.5-5.1)
[2020-10-07 08:55] LABS: ALBUMIN 2.4 g/dl (3.4-5.0); BLOOD UREA NITROGEN 25.3 mg/dL (7-18); CALCIUM 8.8 mg/dL (8.5-10.1)
[2020-10-07 08:56] LABS: MAGNESIUM 2.1 mg/dL (1.8-2.4)
[2020-10-07 08:58] LABS: CREATININE 0.8 mg/dL (0.55-1.3)
[2020-10-07 08:59] LABS: PHOSPHOROUS 2.8 mg/dL (2.5-4.9)
[2020-10-07 09:00] LABS: BILIRUBIN,TOTAL 0.6 mg/dL (0.2-1)
[2020-10-07] MEDS: ASCORBIC ACID 500 MG TABLET (FP) PO SCH ×2 (09:54→21:36)
[2020-10-07] MEDS: ZINC SULFATE 220 MG CAPSULE (FP) PO SCH (09:54)
[2020-10-07] MEDS: CHOLECALCIFEROL (VIT D3) 1,000 UNIT (25 MCG) TABLET PO SCH (09:54)
[2020-10-07] MEDS: ENOXAPARIN NA (PORCINE) 40 MG/0.4 ML DISP.SYRIN SQ SCH (09:54)
[2020-10-07] MEDS: LISINOPRIL 5 MG TABLET PO SCH (09:55)
[2020-10-07] MEDS: DEXAMETHASONE SOD PHOSPHATE 10 MG/1 ML VIAL IVPUSH SCH (09:55)
[2020-10-07] MEDS: PANTOPRAZOLE SODIUM 40 MG VIAL IVPUSH SCH ×2 (09:56→21:42)
[2020-10-08] MEDS: DOCUSATE SODIUM 100 MG CAPSULE (FP) PO SCH ×3 (05:52→21:35)
[2020-10-08] MEDS: INSULIN SLIDING SCALE (NOVOLOG) 1 VIAL SQ SCH ×4 (06:13→21:47)
[2020-10-08] MEDS: INSULIN (NOVOLOG MIX 70/30) 100 UNITS/ML MDV SQ SCH ×2 (06:42→17:03)
[2020-10-08] MEDS: INSULIN (LEVEMIR) 100 UNITS/ML UNITS SQ SCH ×2 (06:43→21:35)
[2020-10-08 08:55] LABS: BASO % 0.8 % (0-2.0); EOS % 1.1 % (0-4.5); HEMOGLOBIN 12.3 GM/dL (10.7-15.3); LYMPH % 23.2 % (8-40); MCH 27.2 pg (25.7-33.7); MCHC 31.5 g/dl (32.0-36.0); MEAN CELL VOLUME 86.3 fl (80-96); MEAN PLT VOLUME 8.5 fl (7.5-11.1); MONO % 14.8 % (3.8-10.2); NEUT % 60.1 % (42.8-82.8); PLATELET COUNT 290 K/MM3 (134-434); RBC 4.52 M/mm3 (3.60-5.2); RDW 15.1 % (11.6-15.6); WHITE BLOOD COUNT 11.7 K/mm3 (4.0-10.0)
[2020-10-08 09:14] LABS: POTASSIUM 3.8 mmol/L (3.5-5.1)
[2020-10-08 09:19] LABS: ALBUMIN 2.7 g/dl (3.4-5.0); BLOOD UREA NITROGEN 24.8 mg/dL (7-18); CALCIUM 8.8 mg/dL (8.5-10.1); MAGNESIUM 2.1 mg/dL (1.8-2.4)
[2020-10-08 09:21] LABS: CREATININE 0.8 mg/dL (0.55-1.3); PHOSPHOROUS 2.7 mg/dL (2.5-4.9)
[2020-10-08 09:22] LABS: BILIRUBIN,TOTAL 0.7 mg/dL (0.2-1); TOT PROT 6.4 g/dl (6.4-8.2)
[2020-10-08] MEDS ORDERED: PT OWN MED DRAWER 7, Y5N ONE (10:40)
[2020-10-08] MEDS: LISINOPRIL 5 MG TABLET PO SCH (10:45)
[2020-10-08] MEDS: ASCORBIC ACID 500 MG TABLET (FP) PO SCH ×2 (10:45→21:35)
[2020-10-08] MEDS: ZINC SULFATE 220 MG CAPSULE (FP) PO SCH (10:45)
[2020-10-08] MEDS: CHOLECALCIFEROL (VIT D3) 1,000 UNIT (25 MCG) TABLET PO SCH (10:46)
[2020-10-08] MEDS: DEXAMETHASONE SOD PHOSPHATE 10 MG/1 ML VIAL IVPUSH SCH (10:47)
[2020-10-08] MEDS: ENOXAPARIN NA (PORCINE) 40 MG/0.4 ML DISP.SYRIN SQ SCH (10:49)
[2020-10-08] MEDS: PANTOPRAZOLE SODIUM 40 MG VIAL IVPUSH SCH ×2 (10:49→21:36)
[2020-10-08] MEDS ORDERED: INSULIN (NOVOLOG MIX 70/30) 100 UNITS/ML MDV SQ ONE ×2 (11:27→17:36)
[2020-10-08] MEDS ORDERED: INSULIN (NOVOLOG) ASPART 100 UNITS/ML 10ML VIAL ONE (11:27)
[2020-10-09] MEDS: DOCUSATE SODIUM 100 MG CAPSULE (FP) PO SCH ×3 (06:54→21:16)
[2020-10-09] MEDS: INSULIN (LEVEMIR) 100 UNITS/ML UNITS SQ SCH ×2 (06:58→21:24)
[2020-10-09] MEDS: INSULIN (NOVOLOG MIX 70/30) 100 UNITS/ML MDV SQ SCH ×2 (06:58→17:24)
[2020-10-09] MEDS: INSULIN SLIDING SCALE (NOVOLOG) 1 VIAL SQ SCH ×4 (07:02→21:24)
[2020-10-09 08:52] LABS: BASO % 0.9 % (0-2.0); EOS % 1.3 % (0-4.5); HEMATOCRIT 39.6 % (32.4-45.2); HEMOGLOBIN 12.4 GM/dL (10.7-15.3); LYMPH % 23.1 % (8-40); MCH 26.9 pg (25.7-33.7); MCHC 31.5 g/dl (32.0-36.0); MEAN CELL VOLUME 85.5 fl (80-96); MEAN PLT VOLUME 8.6 fl (7.5-11.1); MONO % 12.3 % (3.8-10.2); NEUT % 62.4 % (42.8-82.8); PLATELET COUNT 301 K/MM3 (134-434); RBC 4.63 M/mm3 (3.60-5.2); RDW 14.9 % (11.6-15.6); WHITE BLOOD COUNT 10.8 K/mm3 (4.0-10.0)
[2020-10-09 08:58] LABS: CHLORIDE 105 mmol/L (98-107); POTASSIUM 4.3 mmol/L (3.5-5.1); SODIUM 142 mmol/L (136-145)
[2020-10-09 09:00] LABS: ANION GAP 6 MMOL/L (8-16); CALCIUM 8.9 mg/dL (8.5-10.1); CO2 30 mmol/L (21-32); GLUCOSE,RANDOM 105 mg/dL (74-106)
[2020-10-09 09:01] LABS: ALBUMIN 2.7 g/dl (3.4-5.0); BLOOD UREA NITROGEN 21.4 mg/dL (7-18); MAGNESIUM 2.1 mg/dL (1.8-2.4)
[2020-10-09 09:03] LABS: CREATININE 0.8 mg/dL (0.55-1.3); SGPT/ALT 38 U/L (13-61)
[2020-10-09 09:04] LABS: PHOSPHOROUS 3.3 mg/dL (2.5-4.9); SGOT/AST 25 U/L (15-37)
[2020-10-09 09:05] LABS: BILIRUBIN,TOTAL 0.5 mg/dL (0.2-1); LDH 237 U/L (84-246); TOT PROT 6.4 g/dl (6.4-8.2)
[2020-10-09 09:06] LABS: ALK PHOS 64 U/L (45-117)
[2020-10-09] MEDS: PANTOPRAZOLE SODIUM 40 MG VIAL IVPUSH SCH ×2 (09:43→21:17)
[2020-10-09] MEDS: DEXAMETHASONE SOD PHOSPHATE 10 MG/1 ML VIAL IVPUSH SCH (09:43)
[2020-10-09] MEDS: ZINC SULFATE 220 MG CAPSULE (FP) PO SCH (09:43)
[2020-10-09] MEDS: CHOLECALCIFEROL (VIT D3) 1,000 UNIT (25 MCG) TABLET PO SCH (09:43)
[2020-10-09] MEDS: LISINOPRIL 5 MG TABLET PO SCH (09:43)
[2020-10-09] MEDS: ASCORBIC ACID 500 MG TABLET (FP) PO SCH ×2 (09:43→21:16)
[2020-10-09] MEDS: ENOXAPARIN NA (PORCINE) 40 MG/0.4 ML DISP.SYRIN SQ SCH (09:43)
[2020-10-10] MEDS: DOCUSATE SODIUM 100 MG CAPSULE (FP) PO SCH ×3 (05:57→22:07)
[2020-10-10] MEDS: INSULIN (NOVOLOG MIX 70/30) 100 UNITS/ML MDV SQ SCH ×3 (06:00→16:35)
[2020-10-10] MEDS: INSULIN SLIDING SCALE (NOVOLOG) 1 VIAL SQ SCH ×4 (06:07→21:59)
[2020-10-10] MEDS: INSULIN (LEVEMIR) 100 UNITS/ML UNITS SQ SCH ×2 (06:48→21:59)
[2020-10-10 06:53] LABS: BASO % 0.7 % (0-2.0); EOS % 1.1 % (0-4.5); HEMATOCRIT 37.7 % (32.4-45.2); HEMOGLOBIN 12.2 GM/dL (10.7-15.3); LYMPH % 27.1 % (8-40); MCH 27.6 pg (25.7-33.7); MCHC 32.4 g/dl (32.0-36.0); MEAN CELL VOLUME 85.2 fl (80-96); MEAN PLT VOLUME 8.3 fl (7.5-11.1); MONO % 13.2 % (3.8-10.2); NEUT % 57.9 % (42.8-82.8); PLATELET COUNT 325 K/MM3 (134-434); RBC 4.42 M/mm3 (3.60-5.2); WHITE BLOOD COUNT 11.2 K/mm3 (4.0-10.0)
[2020-10-10 07:07] LABS: POTASSIUM 4.1 mmol/L (3.5-5.1)
[2020-10-10 07:09] LABS: CALCIUM 8.9 mg/dL (8.5-10.1)
[2020-10-10 07:10] LABS: BLOOD UREA NITROGEN 22.7 mg/dL (7-18)
[2020-10-10 07:13] LABS: CREATININE 0.8 mg/dL (0.55-1.3)
[2020-10-10] MEDS: ZINC SULFATE 220 MG CAPSULE (FP) PO SCH (09:24)
[2020-10-10] MEDS: LISINOPRIL 5 MG TABLET PO SCH (09:24)
[2020-10-10] MEDS: ASCORBIC ACID 500 MG TABLET (FP) PO SCH ×2 (09:24→21:55)
[2020-10-10] MEDS: CHOLECALCIFEROL (VIT D3) 1,000 UNIT (25 MCG) TABLET PO SCH (09:24)
[2020-10-10] MEDS: PANTOPRAZOLE SODIUM 40 MG VIAL IVPUSH SCH ×2 (09:24→21:55)
[2020-10-10] MEDS: DEXAMETHASONE SOD PHOSPHATE 10 MG/1 ML VIAL IVPUSH SCH (09:24)
[2020-10-10] MEDS: ENOXAPARIN NA (PORCINE) 40 MG/0.4 ML DISP.SYRIN SQ SCH (09:24)
[2020-10-11] MEDS: DOCUSATE SODIUM 100 MG CAPSULE (FP) PO SCH ×3 (06:06→21:17)
[2020-10-11] MEDS: INSULIN (LEVEMIR) 100 UNITS/ML UNITS SQ SCH ×2 (06:07→21:17)
[2020-10-11] MEDS: INSULIN SLIDING SCALE (NOVOLOG) 1 VIAL SQ SCH ×4 (06:08→21:18)
[2020-10-11] MEDS: INSULIN (NOVOLOG MIX 70/30) 100 UNITS/ML MDV SQ SCH ×2 (06:08→17:46)
[2020-10-11 09:28] LABS: BASO % 0.8 % (0-2.0); EOS % 0.8 % (0-4.5); HEMATOCRIT 38.4 % (32.4-45.2); HEMOGLOBIN 12.4 GM/dL (10.7-15.3); LYMPH % 24.5 % (8-40); MCH 27.5 pg (25.7-33.7); MCHC 32.2 g/dl (32.0-36.0); MEAN CELL VOLUME 85.6 fl (80-96); MEAN PLT VOLUME 8.3 fl (7.5-11.1); NEUT % 60.9 % (42.8-82.8); PLATELET COUNT 310 K/MM3 (134-434); RBC 4.49 M/mm3 (3.60-5.2); RDW 15.3 % (11.6-15.6); WHITE BLOOD COUNT 12.8 K/mm3 (4.0-10.0)
[2020-10-11 09:44] LABS: POTASSIUM 4.6 mmol/L (3.5-5.1)
[2020-10-11 09:54] LABS: BLOOD UREA NITROGEN 22.1 mg/dL (7-18)
[2020-10-11 09:55] LABS: CALCIUM 9.3 mg/dL (8.5-10.1)
[2020-10-11 10:00] LABS: CREATININE 0.9 mg/dL (0.55-1.3)
[2020-10-11] MEDS: ENOXAPARIN NA (PORCINE) 40 MG/0.4 ML DISP.SYRIN SQ SCH (10:00)
[2020-10-11] MEDS: DEXAMETHASONE SOD PHOSPHATE 10 MG/1 ML VIAL IVPUSH SCH (10:01)
[2020-10-11] MEDS: LISINOPRIL 5 MG TABLET PO SCH (10:01)
[2020-10-11] MEDS: ASCORBIC ACID 500 MG TABLET (FP) PO SCH ×2 (10:01→21:18)
[2020-10-11] MEDS: ZINC SULFATE 220 MG CAPSULE (FP) PO SCH (10:01)
[2020-10-11] MEDS: CHOLECALCIFEROL (VIT D3) 1,000 UNIT (25 MCG) TABLET PO SCH (10:01)
[2020-10-11] MEDS: FAMOTIDINE 20 MG TABLET PO SCH ×2 (10:01→21:18)
[2020-10-11] MEDS ORDERED: INSULIN (NOVOLOG) ASPART 100 UNITS/ML 10ML VIAL ONE (17:56)
[2020-10-12] MEDS: DOCUSATE SODIUM 100 MG CAPSULE (FP) PO SCH ×4 (06:13→21:46)
[2020-10-12] MEDS: INSULIN (LEVEMIR) 100 UNITS/ML UNITS SQ SCH ×2 (06:20→21:46)
[2020-10-12] MEDS: INSULIN (NOVOLOG MIX 70/30) 100 UNITS/ML MDV SQ SCH ×2 (06:20→17:13)
[2020-10-12] MEDS: INSULIN SLIDING SCALE (NOVOLOG) 1 VIAL SQ SCH ×4 (06:21→21:47)
[2020-10-12 08:38] LABS: BASO % 0.4 % (0-2.0); EOS % 0.8 % (0-4.5); HEMOGLOBIN 11.9 GM/dL (10.7-15.3); LYMPH % 23.9 % (8-40); MCH 27.5 pg (25.7-33.7); MCHC 32.1 g/dl (32.0-36.0); MEAN CELL VOLUME 85.7 fl (80-96); MEAN PLT VOLUME 8.2 fl (7.5-11.1); MONO % 13.6 % (3.8-10.2); NEUT % 61.3 % (42.8-82.8); PLATELET COUNT 283 K/MM3 (134-434); RBC 4.31 M/mm3 (3.60-5.2); RDW 15.7 % (11.6-15.6); WHITE BLOOD COUNT 12.4 K/mm3 (4.0-10.0)
[2020-10-12 08:59] LABS: CHLORIDE 103 mmol/L (98-107); POTASSIUM 4.1 mmol/L (3.5-5.1); SODIUM 139 mmol/L (136-145)
[2020-10-12 09:02] LABS: CALCIUM 9.1 mg/dL (8.5-10.1)
[2020-10-12 09:03] LABS: ALBUMIN 2.9 g/dl (3.4-5.0); ANION GAP 9 MMOL/L (8-16); BLOOD UREA NITROGEN 24.4 mg/dL (7-18); CO2 26 mmol/L (21-32); GLUCOSE,RANDOM 112 mg/dL (74-106); MAGNESIUM 2.5 mg/dL (1.8-2.4)
[2020-10-12 09:06] LABS: CREATININE 0.8 mg/dL (0.55-1.3); PHOSPHOROUS 3.5 mg/dL (2.5-4.9); SGOT/AST 29 U/L (15-37); SGPT/ALT 52 U/L (13-61)
[2020-10-12 09:07] LABS: TOT PROT 6.4 g/dl (6.4-8.2)
[2020-10-12 09:08] LABS: BILIRUBIN,TOTAL 0.6 mg/dL (0.2-1)
[2020-10-12 09:09] LABS: ALK PHOS 63 U/L (45-117); LDH 199 U/L (84-246)
[2020-10-12 09:27] LABS: ERYTHROCYTE SEDIMENTATION RATE 36 mm/hr (0-30)
[2020-10-12] MEDS: DEXAMETHASONE 4 MG TABLET (FP) PO SCH (09:38)
[2020-10-12] MEDS: ENOXAPARIN NA (PORCINE) 40 MG/0.4 ML DISP.SYRIN SQ SCH (09:38)
[2020-10-12] MEDS: ZINC SULFATE 220 MG CAPSULE (FP) PO SCH (09:39)
[2020-10-12] MEDS: CHOLECALCIFEROL (VIT D3) 1,000 UNIT (25 MCG) TABLET PO SCH (09:39)
[2020-10-12] MEDS: FAMOTIDINE 20 MG TABLET PO SCH ×2 (09:39→21:46)
[2020-10-12] MEDS: LISINOPRIL 5 MG TABLET PO SCH (09:39)
[2020-10-12] MEDS: ASCORBIC ACID 500 MG TABLET (FP) PO SCH ×2 (09:41→21:46)
[2020-10-12] MEDS ORDERED: SENNOSIDES 8.6MG TABLET (FP) PO PRN (11:48)
[2020-10-12] MEDS ORDERED: BISACODYL 10 MG SUPP.RECT PR PRN (11:49)
[2020-10-12] MEDS: POLYETHYLENE GLYCOL 3350 119 GM BTL PO SCH ×2 (12:37→21:49)
[2020-10-12] MEDS ORDERED: PT OWN MED DRAWER 7, Y5N ONE ×2 (13:45→17:56)
[2020-10-13] MEDS: DOCUSATE SODIUM 100 MG CAPSULE (FP) PO SCH ×2 (06:34→14:19)
[2020-10-13] MEDS: INSULIN (LEVEMIR) 100 UNITS/ML UNITS SQ SCH (06:35)
[2020-10-13] MEDS: INSULIN (NOVOLOG MIX 70/30) 100 UNITS/ML MDV SQ SCH (06:35)
[2020-10-13] MEDS: INSULIN SLIDING SCALE (NOVOLOG) 1 VIAL SQ SCH ×2 (06:36→11:03)
[2020-10-13 09:49] LABS: BASO % 0.6 % (0-2.0); EOS % 1.4 % (0-4.5); HEMATOCRIT 37.9 % (32.4-45.2); HEMOGLOBIN 12.2 GM/dL (10.7-15.3); LYMPH % 30.3 % (8-40); MCH 27.7 pg (25.7-33.7); MCHC 32.1 g/dl (32.0-36.0); MEAN CELL VOLUME 86.2 fl (80-96); MEAN PLT VOLUME 8.4 fl (7.5-11.1); MONO % 12.6 % (3.8-10.2); NEUT % 55.1 % (42.8-82.8); PLATELET COUNT 248 K/MM3 (134-434); RBC 4.39 M/mm3 (3.60-5.2); RDW 15.6 % (11.6-15.6); WHITE BLOOD COUNT 11.5 K/mm3 (4.0-10.0)
[2020-10-13 10:00] LABS: CHLORIDE 103 mmol/L (98-107); POTASSIUM 4.3 mmol/L (3.5-5.1); SODIUM 140 mmol/L (136-145)
[2020-10-13] MEDS ORDERED: INSULIN (LEVEMIR) 100 UNITS/ML UNITS SQ SCH (10:21)
[2020-10-13 10:26] LABS: ALBUMIN 2.8 g/dl (3.4-5.0); ANION GAP 9 MMOL/L (8-16); BLOOD UREA NITROGEN 21.1 mg/dL (7-18); CALCIUM 9.3 mg/dL (8.5-10.1); CO2 28 mmol/L (21-32)
[2020-10-13 10:27] LABS: GLUCOSE,RANDOM 156 mg/dL (74-106)
[2020-10-13 10:28] LABS: MAGNESIUM 1.9 mg/dL (1.8-2.4)
[2020-10-13 10:29] LABS: CREATININE 0.7 mg/dL (0.55-1.3); SGOT/AST 32 U/L (15-37); SGPT/ALT 53 U/L (13-61)
[2020-10-13 10:30] LABS: PHOSPHOROUS 3.5 mg/dL (2.5-4.9)
[2020-10-13 10:31] LABS: ALK PHOS 65 U/L (45-117); ERYTHROCYTE SEDIMENTATION RATE 34 mm/hr (0-30); TOT PROT 6.2 g/dl (6.4-8.2)
[2020-10-13] MEDS: FAMOTIDINE 20 MG TABLET PO SCH (10:44)
[2020-10-13] MEDS: CHOLECALCIFEROL (VIT D3) 1,000 UNIT (25 MCG) TABLET PO SCH (10:44)
[2020-10-13] MEDS: ASCORBIC ACID 500 MG TABLET (FP) PO SCH (10:44)
[2020-10-13] MEDS: DEXAMETHASONE 4 MG TABLET (FP) PO SCH (10:44)
[2020-10-13] MEDS: LISINOPRIL 5 MG TABLET PO SCH (10:45)
[2020-10-13] MEDS: ZINC SULFATE 220 MG CAPSULE (FP) PO SCH (10:45)
[2020-10-13] MEDS ORDERED: INSULIN (NOVOLOG) ASPART 100 UNITS/ML 10ML VIAL ONE (10:47)
[2020-10-13] MEDS: POLYETHYLENE GLYCOL 3350 119 GM BTL PO SCH (10:49)
[2020-10-13] MEDS: ENOXAPARIN NA (PORCINE) 40 MG/0.4 ML DISP.SYRIN SQ SCH (11:06)
[2020-10-13 12:35] LABS: BILIRUBIN,TOTAL 0.9 mg/dL (0.2-1); LDH 210 U/L (84-246)
[2020-10-13 14:56] VITALS: BP 133/69; PULSE 95; TEMP 98.2
== END 2020-10-13 16:59 | DRG 177 ==
LOC: JER 16:51 → JERBED 21:00 → J4S 09-28 23:59 → J8W 10-03 13:30
PROVIDERS: ADMIT Hospitalist; ATTEND Internal Medicine
PROC: XW033E5 Introduction of Remdesivir Anti-infective into Peripheral Vein, Percutaneous Approach, New Technology Group 5 (ICD-10-PCS; principal; 2020-09-30)
PROC: XW13325 Transfusion of Convalescent Plasma (Nonautologous) into Peripheral Vein, Percutaneous Approach, New Technology Group 5 (ICD-10-PCS; 2020-09-30)
DX: U07.1 COVID-19 (principal); J12.89 Other viral pneumonia; J96.01 Acute respiratory failure with hypoxia; E87.2 Acidosis; K92.2 Gastrointestinal hemorrhage, unspecified; Z68.42 Body mass index [BMI] 45.0-49.9, adult; N17.9 Acute kidney failure, unspecified; E09.65 Drug or chemical induced diabetes mellitus with hyperglycemia; K59.00 Constipation, unspecified; E66.01 Morbid (severe) obesity due to excess calories; I10 Essential (primary) hypertension; E11.9 Type 2 diabetes mellitus without complications
CPT/HCPCS: 36415; 36430; 71045-TC-FY; 80048; 80053; 81003; 82248; 82272; 82550; 82553; 82728; 82803; 82962; 83036; 83605; 83615; 83735; 83880; 84100; 84484; 85025; 85027; 85379; 85610; 85651; 85730; 86140; 86769; 86850; 86900; 86901; 87040; 87086; 87804; 93005; 93010; 93306-TC; 94660; 97116-GP; 97161-GP; 99285-25; C9803; J0131; J1100; P9017; U0003

== ENCOUNTER 2020-11-09 12:30 | Inpatient (IN) | payer OTHER, MEDICARE ==
[2020-11-09] MEDS ORDERED: ALBUTEROL SO4 HFA INHALER IH ONE ×2 (13:29→14:13)
[2020-11-09] MEDS ORDERED: MAGNESIUM SULF 50% (8.12 MEQ/2 ML-1 GM VIAL) IVPB ONE (13:29)
[2020-11-09] MEDS ORDERED: methylPREDNISolone NA SUCC 125 MG/2 ML VIAL IVPB ONE (13:29)
[2020-11-09 14:09] LABS: BASO % 0.4 % (0-2.0); EOS % 0.1 % (0-4.5); HEMATOCRIT 42.2 % (32.4-45.2); HEMOGLOBIN 13.8 GM/dL (10.7-15.3); LYMPH % 16.2 % (8-40); MCH 28.5 pg (25.7-33.7); MCHC 32.8 g/dl (32.0-36.0); MEAN CELL VOLUME 86.9 fl (80-96); MEAN PLT VOLUME 8.3 fl (7.5-11.1); MONO % 10.8 % (3.8-10.2); NEUT % 72.5 % (42.8-82.8); PLATELET COUNT 263 K/MM3 (134-434); RBC 4.86 M/mm3 (3.60-5.2); RDW 16.7 % (11.6-15.6); WHITE BLOOD COUNT 13.7 K/mm3 (4.0-10.0)
[2020-11-09] MEDS ORDERED: methylPREDNISolone NA SUCC 125 MG/2 ML VIAL ONE (14:13)
[2020-11-09] MEDS ORDERED: MAGNESIUM SULFATE IN WATER 2 GM/50 ML IVPB IVPB ONE (14:13)
[2020-11-09 14:18] LABS: INR 1.25 (0.83-1.09); PROTHROMBIN TIME (PATIENT) 15.3 SEC (9.7-13.0)
[2020-11-09 14:21] LABS: ACTIVATED PTT 30.3 SECONDS (25.2-36.5)
[2020-11-09 14:25] LABS: POTASSIUM 4.3 mmol/L (3.5-5.1)
[2020-11-09 14:27] LABS: ALBUMIN 3.4 g/dl (3.4-5.0); CALCIUM 9.6 mg/dL (8.5-10.1)
[2020-11-09 14:28] LABS: BLOOD UREA NITROGEN 29.5 mg/dL (7-18)
[2020-11-09 14:31] LABS: CREATININE 1.5 mg/dL (0.55-1.3)
[2020-11-09 14:32] LABS: TOT PROT 7.1 g/dl (6.4-8.2)
[2020-11-09] MEDS ORDERED: PIPERACILLIN/TAZOB 3.375 GM 3.375 GM in DEXTROSE 5%-WATER - 50 ML IVPB ONE (14:57)
[2020-11-09] MEDS ORDERED: VANCOMYCIN 1 GM in D5W (PRE-DOCKED) 1,000 MG/250 ML IVPB ONE (15:00)
[2020-11-09 15:05] LABS: VENOUS BASE EXCESS -0.4 mmol/L (-2-2); VENOUS O2 SATURATION 52.2 % (70-80); VENOUS PCO2 47.8 mmHg (38-52); VENOUS PH 7.349 (7.310-7.410)
[2020-11-09] MEDS ORDERED: PIPERACILLIN/TAZOB 3.375 GM 3.375 GM/50 ML BAG IVPB ONE ×2 (15:27→15:35)
[2020-11-09] MEDS ORDERED: LACTATED RINGERS SOLUTION 1000 ML INFUS.BAG IV ONE (15:30)
[2020-11-09 15:36] LABS: VENOUS BASE EXCESS 0.8 mmol/L (-2-2); VENOUS O2 SATURATION 94.4 % (70-80); VENOUS PH 7.458 (7.310-7.410)
[2020-11-09] MEDS ORDERED: SODIUM CHLORIDE 0.9% 500 ML INFUS.BAG IV ONE (16:07)
[2020-11-09] MEDS ORDERED: PT OWN MED DRAWER 7, Y5N ONE (17:20)
[2020-11-09] MEDS ORDERED: VANCOMYCIN 1 GRAM (PRE-DOCKED) 1,000 MG/250 ML BAG IVPB ONE (17:20)
[2020-11-09 19:50] LABS: CALCIUM 8.9 mg/dL (8.5-10.1); POTASSIUM 4.8 mmol/L (3.5-5.1)
[2020-11-09 19:52] LABS: BLOOD UREA NITROGEN 26.9 mg/dL (7-18)
[2020-11-09 19:55] LABS: CREATININE 1.3 mg/dL (0.55-1.3)
[2020-11-09] MEDS ORDERED: HEPARIN NA (PORCINE) 5,000 UNITS/ML 1ML VIAL IVPUSH PRN (23:20)
[2020-11-09] MEDS ORDERED: HEPARIN - 25,000 UNIT in SODIUM CHLORIDE 495 ML IV SCH (23:30)
[2020-11-10] MEDS ORDERED: HEPARIN INFUSION - 25,000 UNITS/500 ML INFUS.BAG IVPB ONE (00:02)
[2020-11-10] MEDS ORDERED: HEPARIN NA (PORCINE) 5,000 UNITS/ML 1ML VIAL IVPUSH PRN ×2 (00:06)
[2020-11-10] MEDS: HEPARIN INFUSION - 25,000 UNITS/500 ML INFUS.BAG IVPB SCH (00:19)
[2020-11-10] MEDS ORDERED: ALBUTEROL SO4 0.083% IH SOL 2.5 MG/3 ML VIAL.NEB. NEB ONE ×2 (00:27→00:41)
[2020-11-10] MEDS: HEPARIN NA (PORCINE) 5,000 UNITS/ML 1ML VIAL IVPUSH PRN ×2 (00:31→12:32)
[2020-11-10 01:16] LABS: URINE APPEARANCE Clear; URINE BILIRUBIN Negative (NEGATIVE); URINE COLOR Yellow; URINE GLUCOSE (UA) 1+ (NEGATIVE); URINE KETONE Negative (NEGATIVE); URINE LEUK ESTERASE 1+ (NEGATIVE); URINE NITRITE Positive (NEGATIVE); URINE PROTEIN 1+ (NEGATIVE); URINE UROBILINOGEN 0.2 mg/dL (0.2-1.0)
[2020-11-10] MEDS ORDERED: FUROSEMIDE 40 MG/4 ML INJECTABLE VIAL IVPUSH ONE (01:31)
[2020-11-10 01:49] LABS: ARTERIAL BLD GAS O2 SATURATION 99.3 mmHg (95-98); ARTERIAL BLOOD GAS BASE EXCESS -0.5 mmol/L (-2-2); ARTERIAL BLOOD GAS PO2 182.5 mmHg (80-100)
[2020-11-10 01:50] LABS: ALLENS TEST POSITIVE
[2020-11-10 01:52] LABS: VENT MODE S/T
[2020-11-10 01:53] LABS: VENT RATE 16
[2020-11-10 02:01] LABS: BASO % 0.5 % (0-2.0); HEMATOCRIT 36.4 % (32.4-45.2); HEMOGLOBIN 11.8 GM/dL (10.7-15.3); LYMPH % 12.5 % (8-40); MCH 28.2 pg (25.7-33.7); MCHC 32.5 g/dl (32.0-36.0); MEAN CELL VOLUME 86.6 fl (80-96); MEAN PLT VOLUME 8.6 fl (7.5-11.1); MONO % 3.5 % (3.8-10.2); NEUT % 83.5 % (42.8-82.8); PLATELET COUNT 211 K/MM3 (134-434); RDW 16.7 % (11.6-15.6); WHITE BLOOD COUNT 10.4 K/mm3 (4.0-10.0)
[2020-11-10] MEDS ORDERED: PIPERACILLIN/TAZOB 2.25 GM 2.25 GM/50 ML BAG IVPB ONE ×4 (02:29→20:50)
[2020-11-10] MEDS ORDERED: FUROSEMIDE 40 MG/4 ML INJECTABLE VIAL ONE (02:29)
[2020-11-10] MEDS: PIPERACILLIN/TAZOB 2.25 GM 2.25 GM in DEXTROSE 5%-WATER - 50 ML IVPB SCH ×4 (02:35→23:36)
[2020-11-10 02:47] LABS: EPI CELLS 168 /uL (0-25.1); HYALINE CASTS 1 /uL (0-3.1); URINE BACTERIA 734 /uL (0-1359); URINE RBC 2 /uL (0-23.9); URINE WBC 56 /uL (0-25.8)
[2020-11-10] MEDS ORDERED: PIPERACILLIN/TAZOB 2.25 GM 2.25 GM in DEXTROSE 5%-WATER - 50 ML IVPB SCH (03:00)
[2020-11-10] MEDS: INSULIN SLIDING SCALE (NOVOLOG) 1 VIAL SQ SCH ×5 (08:18→23:36)
[2020-11-10 08:40] LABS: POTASSIUM 4.1 mmol/L (3.5-5.1)
[2020-11-10 08:43] LABS: ALBUMIN 2.8 g/dl (3.4-5.0); CALCIUM 9.2 mg/dL (8.5-10.1)
[2020-11-10 08:44] LABS: BLOOD UREA NITROGEN 33.2 mg/dL (7-18); MAGNESIUM 2.2 mg/dL (1.8-2.4)
[2020-11-10 08:45] LABS: CREATININE 1.2 mg/dL (0.55-1.3); PHOSPHOROUS 3.9 mg/dL (2.5-4.9)
[2020-11-10 08:47] LABS: BILIRUBIN,TOTAL 0.6 mg/dL (0.2-1); TOT PROT 6.3 g/dl (6.4-8.2)
[2020-11-10] MEDS ORDERED: VANCOMYCIN 1 GM in D5W (PRE-DOCKED) 1,000 MG/250 ML IVPB SCH (10:00)
[2020-11-10] MEDS ORDERED: VANCOMYCIN 1 GRAM (PRE-DOCKED) 1,000 MG/250 ML BAG IVPB ONE ×2 (10:00→10:02)
[2020-11-10] MEDS ORDERED: HEPARIN NA (PORCINE) 5,000 UNITS/ML 1ML VIAL ONE (12:26)
[2020-11-10] MEDS ORDERED: DEXTROSE 5%-0.45% SALINE 1,000 ML IV SCH (13:15)
[2020-11-10 14:11] LABS: N-TERMINAL BNP 5335.4 pg/ml (5-450)
[2020-11-10 16:45] LABS: EPI CELLS >36 /uL (0-25.1); HYALINE CASTS 2 /uL (0-3.1); URINE APPEARANCE CLOUDY; URINE BACTERIA 93 /uL (0-1359); URINE BILIRUBIN NEGATIVE (NEGATIVE); URINE COLOR YELLOW; URINE GLUCOSE (UA) TRACE (NEGATIVE); URINE KETONE NEGATIVE (NEGATIVE); URINE LEUK ESTERASE 2+ (NEGATIVE); URINE NITRITE NEGATIVE (NEGATIVE); URINE PROTEIN NEGATIVE (NEGATIVE); URINE RBC 21 /uL (0-23.9); URINE UROBILINOGEN 0.2 mg/dL (0.2-1.0); URINE WBC 460 /uL (0-25.8)
[2020-11-10] MEDS: DEXTROSE 5%-0.45% SALINE 1,000 ML IV SCH (17:33)
[2020-11-10 23:26] LABS: YEAST NEGATIVE (NEGATIVE)
[2020-11-11 00:16] VITALS: BMI 44.2
[2020-11-11] MEDS: HEPARIN INFUSION - 25,000 UNITS/500 ML INFUS.BAG IVPB SCH ×2 (02:02→17:51)
[2020-11-11] MEDS: INSULIN SLIDING SCALE (NOVOLOG) 1 VIAL SQ SCH ×4 (06:39→21:35)
[2020-11-11 07:30] LABS: BASO % 0.4 % (0-2.0); HEMATOCRIT 33.8 % (32.4-45.2); LYMPH % 22.6 % (8-40); MCH 28.5 pg (25.7-33.7); MCHC 32.6 g/dl (32.0-36.0); MEAN CELL VOLUME 87.4 fl (80-96); MEAN PLT VOLUME 8.6 fl (7.5-11.1); MONO % 6.8 % (3.8-10.2); NEUT % 69.2 % (42.8-82.8); PLATELET COUNT 203 K/MM3 (134-434); RBC 3.87 M/mm3 (3.60-5.2); RDW 17.2 % (11.6-15.6); WHITE BLOOD COUNT 10.2 K/mm3 (4.0-10.0)
[2020-11-11 08:33] LABS: ALBUMIN 2.4 g/dl (3.4-5.0); BILIRUBIN,TOTAL 0.5 mg/dL (0.2-1); BLOOD UREA NITROGEN 33.2 mg/dL (7-18); CALCIUM 8.7 mg/dL (8.5-10.1); MAGNESIUM 2.1 mg/dL (1.8-2.4); PHOSPHOROUS 2.3 mg/dL (2.5-4.9); TOT PROT 5.6 g/dl (6.4-8.2)
[2020-11-11] MEDS ORDERED: PNEUMOC 13-VAL CONJ-DIP CRM/PF 0.5 ML DISP.SYRIN IM ONE (10:00)
[2020-11-11] MEDS: KCL 10 MEQ IVPB 10 MEQ/100 ML INFUS.BAG IVPB SCH ×3 (10:42→14:32)
[2020-11-11] MEDS ORDERED: POTASSIUM PHOSPHATE 30 MM in SODIUM CHLORIDE 500 ML IVPB ONE (15:00)
[2020-11-11] MEDS ORDERED: PIPERACILLIN/TAZOBACTAM 3.375 GM VIAL IVPB ONE (17:26)
[2020-11-11] MEDS: PIPERACILLIN/TAZOB 3.375 GM 3.375 GM in DEXTROSE 5%-WATER - 50 ML IVPB SCH (17:42)
[2020-11-11] MEDS: DEXTROSE 5%-0.45% SALINE 1,000 ML IV SCH (17:51)
[2020-11-12] MEDS ORDERED: PIPERACILLIN/TAZOBACTAM 3.375 GM VIAL IVPB ONE ×3 (01:01→16:50)
[2020-11-12] MEDS ORDERED: DEXTROSE 5%-WATER - 50 ML IVPB ONE ×3 (01:02→16:50)
[2020-11-12] MEDS: PIPERACILLIN/TAZOB 3.375 GM 3.375 GM in DEXTROSE 5%-WATER - 50 ML IVPB SCH ×3 (01:03→17:48)
[2020-11-12] MEDS: HEPARIN INFUSION - 25,000 UNITS/500 ML INFUS.BAG IVPB SCH ×3 (01:03→17:43)
[2020-11-12] MEDS: INSULIN SLIDING SCALE (NOVOLOG) 1 VIAL SQ SCH ×4 (06:52→21:22)
[2020-11-12 08:21] LABS: BASO % 0.2 % (0-2.0); EOS % 1.5 % (0-4.5); HEMATOCRIT 29.8 % (32.4-45.2); HEMOGLOBIN 9.9 GM/dL (10.7-15.3); LYMPH % 28.8 % (8-40); MCH 28.9 pg (25.7-33.7); MCHC 33.2 g/dl (32.0-36.0); MEAN CELL VOLUME 86.8 fl (80-96); MEAN PLT VOLUME 8.4 fl (7.5-11.1); MONO % 9.4 % (3.8-10.2); NEUT % 60.1 % (42.8-82.8); PLATELET COUNT 210 K/MM3 (134-434); RBC 3.44 M/mm3 (3.60-5.2); RDW 16.9 % (11.6-15.6); WHITE BLOOD COUNT 7.3 K/mm3 (4.0-10.0)
[2020-11-12 09:38] LABS: POTASSIUM 3.8 mmol/L (3.5-5.1)
[2020-11-12 09:42] LABS: ALBUMIN 2.3 g/dl (3.4-5.0); BLOOD UREA NITROGEN 44.6 mg/dL (7-18); CALCIUM 8.3 mg/dL (8.5-10.1); MAGNESIUM 2.1 mg/dL (1.8-2.4)
[2020-11-12 09:45] LABS: CREATININE 0.9 mg/dL (0.55-1.3); PHOSPHOROUS 2.7 mg/dL (2.5-4.9)
[2020-11-12 09:47] LABS: BILIRUBIN,TOTAL 0.4 mg/dL (0.2-1); TOT PROT 5.4 g/dl (6.4-8.2)
[2020-11-12] MEDS: KCL 10 MEQ IVPB 10 MEQ/100 ML INFUS.BAG IVPB SCH ×2 (14:04→15:23)
[2020-11-12] MEDS: DEXTROSE 5%-0.45% SALINE 1,000 ML IV SCH (17:41)
[2020-11-12] MEDS ORDERED: INSULIN (NOVOLOG) ASPART 100 UNITS/ML 10ML VIAL ONE (21:04)
[2020-11-13] MEDS ORDERED: DEXTROSE 5%-WATER - 50 ML IVPB ONE ×3 (03:00→18:09)
[2020-11-13] MEDS ORDERED: PIPERACILLIN/TAZOBACTAM 3.375 GM VIAL IVPB ONE ×3 (03:00→18:09)
[2020-11-13] MEDS: PIPERACILLIN/TAZOB 3.375 GM 3.375 GM in DEXTROSE 5%-WATER - 50 ML IVPB SCH ×3 (03:03→18:35)
[2020-11-13] MEDS: HEPARIN INFUSION - 25,000 UNITS/500 ML INFUS.BAG IVPB SCH (06:30)
[2020-11-13] MEDS ORDERED: INSULIN (LEVEMIR) 100 UNITS/ML UNITS SQ SCH ×2 (07:00→10:00)
[2020-11-13] MEDS: INSULIN SLIDING SCALE (NOVOLOG) 1 VIAL SQ SCH ×3 (07:06→18:34)
[2020-11-13 08:41] LABS: BASO % 0.5 % (0-2.0); EOS % 0.9 % (0-4.5); HEMATOCRIT 23.7 % (32.4-45.2); HEMOGLOBIN 7.7 GM/dL (10.7-15.3); LYMPH % 27.8 % (8-40); MCH 28.6 pg (25.7-33.7); MCHC 32.4 g/dl (32.0-36.0); MEAN CELL VOLUME 88.3 fl (80-96); MEAN PLT VOLUME 9.1 fl (7.5-11.1); MONO % 8.2 % (3.8-10.2); NEUT % 62.6 % (42.8-82.8); PLATELET COUNT 201 K/MM3 (134-434); RBC 2.68 M/mm3 (3.60-5.2); RDW 17.2 % (11.6-15.6); WHITE BLOOD COUNT 9.3 K/mm3 (4.0-10.0)
[2020-11-13 09:45] LABS: ALBUMIN 2.1 g/dl (3.4-5.0); BILIRUBIN,TOTAL 0.4 mg/dL (0.2-1); BLOOD UREA NITROGEN 49.3 mg/dL (7-18); CALCIUM 8.3 mg/dL (8.5-10.1); CREATININE 0.9 mg/dL (0.55-1.3); POTASSIUM 3.8 mmol/L (3.5-5.1); TOT PROT 4.9 g/dl (6.4-8.2)
[2020-11-13] MEDS ORDERED: FAMOTIDINE 20 MG/50 ML IVPB 20 MG/50 ML MG IVPB SCH (10:30)
[2020-11-13 16:32] LABS: BASO % 0.3 % (0-2.0); EOS % 0.6 % (0-4.5); HEMATOCRIT 21.9 % (32.4-45.2); MCH 27.7 pg (25.7-33.7); MCHC 31.1 g/dl (32.0-36.0); MEAN PLT VOLUME 8.9 fl (7.5-11.1); MONO % 7.4 % (3.8-10.2); NEUT % 63.7 % (42.8-82.8); PLATELET COUNT 209 K/MM3 (134-434); RBC 2.46 M/mm3 (3.60-5.2); RDW 16.8 % (11.6-15.6); WHITE BLOOD COUNT 12.3 K/mm3 (4.0-10.0)
[2020-11-13 16:50] LABS: HEMOGLOBIN 6.8 GM/dL (10.7-15.3)
[2020-11-13] MEDS ORDERED: PANTOPRAZOLE SODIUM 80 MG in SODIUM CHLORIDE 100 ML IVPB SCH (17:56)
[2020-11-13] MEDS ORDERED: FUROSEMIDE 40 MG/4 ML INJECTABLE VIAL IVPUSH PRN (18:36)
[2020-11-14] MEDS ORDERED: ACETAMINOPHEN 1000 MG/100 ML VIAL (NON FORMULARY) IVPB PRN ×2 (00:33→17:53)
[2020-11-14] MEDS: CHLORHEXIDINE GLUCONATE 4% CLEANSER FOR DECOLONIZATION TP SCH ×2 (01:06→22:53)
[2020-11-14] MEDS: MUPIROCIN 2% TOPICAL OINTMENT FOR DECOLONIZATION NS SCH ×3 (01:06→22:53)
[2020-11-14] MEDS: DEXTROSE 5%-0.45% SALINE 1,000 ML IV SCH (02:43)
[2020-11-14] MEDS: INSULIN SLIDING SCALE (NOVOLOG) 1 VIAL SQ SCH ×5 (02:46→22:53)
[2020-11-14] MEDS ORDERED: PANTOPRAZOLE SODIUM 80 MG in SODIUM CHLORIDE 100 ML IVPB SCH (03:56)
[2020-11-14] MEDS: PIPERACILLIN/TAZOB 3.375 GM 3.375 GM in DEXTROSE 5%-WATER - 50 ML IVPB SCH ×3 (04:30→17:18)
[2020-11-14] MEDS ORDERED: METOPROLOL TARTRATE 5 MG/5 ML VIAL ONE ×2 (05:57→08:03)
[2020-11-14 06:58] LABS: HEMATOCRIT 30.5 % (32.4-45.2); HEMOGLOBIN 10.1 GM/dL (10.7-15.3); MCH 30.1 pg (25.7-33.7); MCHC 33.2 g/dl (32.0-36.0); MEAN CELL VOLUME 90.7 fl (80-96); MEAN PLT VOLUME 8.9 fl (7.5-11.1); PLATELET COUNT 175 K/MM3 (134-434); RBC 3.36 M/mm3 (3.60-5.2); RDW 15.5 % (11.6-15.6); WHITE BLOOD COUNT 13.4 K/mm3 (4.0-10.0)
[2020-11-14] MEDS: INSULIN (LEVEMIR) 100 UNITS/ML UNITS SQ SCH (07:51)
[2020-11-14] MEDS: PANTOPRAZOLE SODIUM 80 MG in SODIUM CHLORIDE 100 ML IVPB SCH ×2 (09:42→22:53)
[2020-11-14] MEDS ORDERED: DEXTROSE 5%-WATER - 50 ML IVPB ONE ×2 (09:45→16:46)
[2020-11-14] MEDS ORDERED: PIPERACILLIN/TAZOBACTAM 3.375 GM VIAL IVPB ONE ×2 (09:45→16:46)
[2020-11-14] MEDS ORDERED: MINERAL OIL ENEMA 133 ML ENEMA RC ONE (09:54)
[2020-11-14] MEDS ORDERED: SODIUM PHOSPHATE/NA BIPHOS 133 ML ENEMA RC ONE (09:55)
[2020-11-14 16:27] LABS: HEMATOCRIT 29.3 % (32.4-45.2); HEMOGLOBIN 9.6 GM/dL (10.7-15.3); MCH 29.6 pg (25.7-33.7); MCHC 32.7 g/dl (32.0-36.0); MEAN CELL VOLUME 90.5 fl (80-96); MEAN PLT VOLUME 9.5 fl (7.5-11.1); PLATELET COUNT 137 K/MM3 (134-434); RBC 3.23 M/mm3 (3.60-5.2); RDW 15.7 % (11.6-15.6); WHITE BLOOD COUNT 12.2 K/mm3 (4.0-10.0)
[2020-11-15] MEDS ORDERED: INSULIN (NOVOLOG) ASPART 100 UNITS/ML 10ML VIAL ONE (00:19)
[2020-11-15] MEDS ORDERED: DEXTROSE 5%-WATER - 50 ML IVPB ONE ×4 (00:19→17:29)
[2020-11-15] MEDS ORDERED: PIPERACILLIN/TAZOBACTAM 3.375 GM VIAL IVPB ONE ×4 (00:19→17:29)
[2020-11-15] MEDS: PIPERACILLIN/TAZOB 3.375 GM 3.375 GM in DEXTROSE 5%-WATER - 50 ML IVPB SCH ×3 (01:14→17:59)
[2020-11-15] MEDS: PANTOPRAZOLE SODIUM 80 MG in SODIUM CHLORIDE 100 ML IVPB SCH ×2 (06:39→15:51)
[2020-11-15] MEDS: INSULIN (LEVEMIR) 100 UNITS/ML UNITS SQ SCH (07:26)
[2020-11-15] MEDS: INSULIN SLIDING SCALE (NOVOLOG) 1 VIAL SQ SCH ×4 (07:26→21:27)
[2020-11-15] MEDS: MUPIROCIN 2% TOPICAL OINTMENT FOR DECOLONIZATION NS SCH ×2 (10:43→21:34)
[2020-11-15] MEDS ORDERED: AMINO ACIDS 4.25%/D5W 1,000 ML IV SCH (13:00)
[2020-11-15 14:01] LABS: HEMATOCRIT 29.4 % (32.4-45.2); HEMOGLOBIN 9.5 GM/dL (10.7-15.3); MCH 29.7 pg (25.7-33.7); MCHC 32.4 g/dl (32.0-36.0); MEAN CELL VOLUME 91.5 fl (80-96); MEAN PLT VOLUME 9.1 fl (7.5-11.1); PLATELET COUNT 154 K/MM3 (134-434); RBC 3.22 M/mm3 (3.60-5.2); WHITE BLOOD COUNT 8.8 K/mm3 (4.0-10.0)
[2020-11-15 14:18] LABS: POTASSIUM 3.3 mmol/L (3.5-5.1)
[2020-11-15 14:19] LABS: ALBUMIN 2.4 g/dl (3.4-5.0); MAGNESIUM 2.4 mg/dL (1.8-2.4)
[2020-11-15 14:22] LABS: CREATININE 1.1 mg/dL (0.55-1.3); PHOSPHOROUS 3.7 mg/dL (2.5-4.9)
[2020-11-15 14:23] LABS: BILIRUBIN,TOTAL 1.1 mg/dL (0.2-1); TOT PROT 5.4 g/dl (6.4-8.2)
[2020-11-15 14:25] LABS: BLOOD UREA NITROGEN 38.2 mg/dL (7-18)
[2020-11-15] MEDS ORDERED: DEXTROSE 5%-WATER - 1,000 ML IV SCH (15:00)
[2020-11-15] MEDS ORDERED: PT OWN MED DRAWER 7, Y5N ONE ×2 (15:02→18:07)
[2020-11-15] MEDS: POTASSIUM CHLORIDE 20 MEQ in AMINO ACIDS 4.25%/D5W 1,000 ML IV SCH (21:12)
[2020-11-15] MEDS: CHLORHEXIDINE GLUCONATE 4% CLEANSER FOR DECOLONIZATION TP SCH (21:13)
[2020-11-15] MEDS ORDERED: PANTOPRAZOLE SODIUM 40 MG VIAL IVPUSH SCH (22:00)
[2020-11-16 00:27] LABS: POTASSIUM 3.7 mmol/L (3.5-5.1)
[2020-11-16 00:28] LABS: CALCIUM 8.5 mg/dL (8.5-10.1)
[2020-11-16 00:29] LABS: ALBUMIN 2.2 g/dl (3.4-5.0)
[2020-11-16 00:32] LABS: CREATININE 1.1 mg/dL (0.55-1.3)
[2020-11-16 00:45] LABS: BILIRUBIN,TOTAL 0.7 mg/dL (0.2-1)
[2020-11-16 00:54] LABS: BLOOD UREA NITROGEN 35.1 mg/dL (7-18)
[2020-11-16] MEDS ORDERED: DEXTROSE 5%-WATER - 1,000 ML IV SCH (01:10)
[2020-11-16] MEDS ORDERED: PIPERACILLIN/TAZOBACTAM 3.375 GM VIAL IVPB ONE ×3 (01:41→17:19)
[2020-11-16] MEDS ORDERED: DEXTROSE 5%-WATER - 50 ML IVPB ONE ×3 (01:41→17:19)
[2020-11-16] MEDS: PIPERACILLIN/TAZOB 3.375 GM 3.375 GM in DEXTROSE 5%-WATER - 50 ML IVPB SCH ×3 (02:02→17:19)
[2020-11-16] MEDS: PANTOPRAZOLE SODIUM 80 MG in SODIUM CHLORIDE 100 ML IVPB SCH ×3 (02:02→20:06)
[2020-11-16] MEDS ORDERED: FUROSEMIDE 40 MG/4 ML INJECTABLE VIAL IVPUSH PRN (03:22)
[2020-11-16] MEDS: POTASSIUM CHLORIDE 20 MEQ in AMINO ACIDS 4.25%/D5W 1,000 ML IV SCH ×3 (05:40→13:26)
[2020-11-16] MEDS: INSULIN SLIDING SCALE (NOVOLOG) 1 VIAL SQ SCH ×4 (06:08→21:13)
[2020-11-16] MEDS ORDERED: INSULIN (LEVEMIR) 100 UNITS/ML UNITS SQ SCH (07:00)
[2020-11-16 07:51] LABS: HEMATOCRIT 26.5 % (32.4-45.2); HEMOGLOBIN 8.7 GM/dL (10.7-15.3); MCH 30.3 pg (25.7-33.7); MCHC 32.9 g/dl (32.0-36.0); MEAN CELL VOLUME 92.2 fl (80-96); MEAN PLT VOLUME 9.1 fl (7.5-11.1); PLATELET COUNT 134 K/MM3 (134-434); RBC 2.87 M/mm3 (3.60-5.2); RDW 16.1 % (11.6-15.6); WHITE BLOOD COUNT 7.5 K/mm3 (4.0-10.0)
[2020-11-16] MEDS ORDERED: PT OWN MED DRAWER 7, Y5N ONE ×2 (08:40→18:30)
[2020-11-16 09:01] LABS: ALBUMIN 2.2 g/dl (3.4-5.0); BLOOD UREA NITROGEN 35.1 mg/dL (7-18); CALCIUM 8.5 mg/dL (8.5-10.1); POTASSIUM 3.3 mmol/L (3.5-5.1)
[2020-11-16 09:02] LABS: MAGNESIUM 2.4 mg/dL (1.8-2.4)
[2020-11-16 09:04] LABS: CREATININE 1.1 mg/dL (0.55-1.3)
[2020-11-16 09:06] LABS: BILIRUBIN,TOTAL 1.4 mg/dL (0.2-1); TOT PROT 5.1 g/dl (6.4-8.2)
[2020-11-16] MEDS: KCL 10 MEQ IVPB 10 MEQ/100 ML INFUS.BAG IVPB SCH ×3 (12:11→14:39)
[2020-11-16 15:46] LABS: POTASSIUM 3.9 mmol/L (3.5-5.1)
[2020-11-16 15:48] LABS: CALCIUM 8.3 mg/dL (8.5-10.1)
[2020-11-16 15:49] LABS: BLOOD UREA NITROGEN 33.5 mg/dL (7-18)
[2020-11-16 15:52] LABS: CREATININE 1.2 mg/dL (0.55-1.3)
[2020-11-16] MEDS ORDERED: POTASSIUM CHLORIDE 10 MEQ in DEXTROSE 5%-WATER - 1,000 ML IV SCH (17:00)
[2020-11-16 21:03] LABS: BASO % 0.6 % (0-2.0); EOS % 1.5 % (0-4.5); HEMATOCRIT 26.8 % (32.4-45.2); HEMOGLOBIN 8.8 GM/dL (10.7-15.3); LYMPH % 32.3 % (8-40); MCH 30.1 pg (25.7-33.7); MCHC 32.8 g/dl (32.0-36.0); MEAN CELL VOLUME 91.7 fl (80-96); MEAN PLT VOLUME 9.2 fl (7.5-11.1); MONO % 9.9 % (3.8-10.2); NEUT % 55.7 % (42.8-82.8); PLATELET COUNT 141 K/MM3 (134-434); RBC 2.92 M/mm3 (3.60-5.2); RDW 16.5 % (11.6-15.6)
[2020-11-16 21:25] LABS: POTASSIUM 3.5 mmol/L (3.5-5.1)
[2020-11-16 21:27] LABS: CALCIUM 8.7 mg/dL (8.5-10.1)
[2020-11-16 21:31] LABS: CREATININE 1.2 mg/dL (0.55-1.3)
[2020-11-16] MEDS ORDERED: POTASSIUM CHLORIDE TABS 20 MEQ TABLET.ER (FP) PO ONE (21:36)
[2020-11-16] MEDS ORDERED: CHLORHEXIDINE GLUCONATE 4% CLEANSER FOR DECOLONIZATION TP SCH (22:00)
[2020-11-16] MEDS: POTASSIUM CHLORIDE 20 MEQ in DEXTROSE 5%-WATER - 1,000 ML IV SCH (23:37)
[2020-11-17] MEDS ORDERED: PIPERACILLIN/TAZOBACTAM 3.375 GM VIAL IVPB ONE ×3 (01:02→16:50)
[2020-11-17] MEDS ORDERED: DEXTROSE 5%-WATER - 50 ML IVPB ONE ×3 (01:02→16:50)
[2020-11-17] MEDS: PIPERACILLIN/TAZOB 3.375 GM 3.375 GM in DEXTROSE 5%-WATER - 50 ML IVPB SCH ×3 (01:18→17:15)
[2020-11-17] MEDS: PANTOPRAZOLE SODIUM 80 MG in SODIUM CHLORIDE 100 ML IVPB SCH (06:07)
[2020-11-17] MEDS: INSULIN (LEVEMIR) 100 UNITS/ML UNITS SQ SCH (06:10)
[2020-11-17] MEDS: INSULIN SLIDING SCALE (NOVOLOG) 1 VIAL SQ SCH ×4 (06:10→21:39)
[2020-11-17] MEDS: POTASSIUM CHLORIDE 20 MEQ in DEXTROSE 5%-WATER - 1,000 ML IV SCH ×2 (10:00→14:04)
[2020-11-17] MEDS: MUPIROCIN 2% TOPICAL OINTMENT FOR DECOLONIZATION NS SCH ×3 (10:00→19:41)
[2020-11-17] MEDS ORDERED: MINERAL OIL ENEMA 133 ML ENEMA RC ONE (12:20)
[2020-11-17 12:21] LABS: BASO % 0.5 % (0-2.0); EOS % 1.7 % (0-4.5); HEMATOCRIT 25.1 % (32.4-45.2); HEMOGLOBIN 8.2 GM/dL (10.7-15.3); LYMPH % 34.9 % (8-40); MCH 29.9 pg (25.7-33.7); MCHC 32.7 g/dl (32.0-36.0); MEAN CELL VOLUME 91.4 fl (80-96); MEAN PLT VOLUME 9.4 fl (7.5-11.1); MONO % 8.3 % (3.8-10.2); NEUT % 54.6 % (42.8-82.8); PLATELET COUNT 136 K/MM3 (134-434); RBC 2.75 M/mm3 (3.60-5.2); RDW 16.9 % (11.6-15.6)
[2020-11-17 13:10] LABS: POTASSIUM 3.9 mmol/L (3.5-5.1)
[2020-11-17 13:14] LABS: CALCIUM 8.5 mg/dL (8.5-10.1)
[2020-11-17 13:15] LABS: ALBUMIN 2.4 g/dl (3.4-5.0); BLOOD UREA NITROGEN 30.2 mg/dL (7-18)
[2020-11-17 13:18] LABS: CREATININE 1.2 mg/dL (0.55-1.3)
[2020-11-17 13:19] LABS: PHOSPHOROUS 2.4 mg/dL (2.5-4.9)
[2020-11-17 13:20] LABS: BILIRUBIN,TOTAL 1.2 mg/dL (0.2-1); TOT PROT 5.4 g/dl (6.4-8.2)
[2020-11-17] MEDS: AMINO ACIDS/PROTEIN HYDROLYS 30 ML LIQUID.PKT PO SCH (17:15)
[2020-11-17] MEDS: PANTOPRAZOLE 40 MG TABLET PO SCH (21:35)
[2020-11-18] MEDS ORDERED: DEXTROSE 5%-WATER - 50 ML IVPB ONE ×3 (01:05→17:29)
[2020-11-18] MEDS ORDERED: PIPERACILLIN/TAZOBACTAM 3.375 GM VIAL IVPB ONE ×3 (01:05→17:29)
[2020-11-18] MEDS: PIPERACILLIN/TAZOB 3.375 GM 3.375 GM in DEXTROSE 5%-WATER - 50 ML IVPB SCH ×2 (01:51→09:28)
[2020-11-18] MEDS: POTASSIUM CHLORIDE 20 MEQ in DEXTROSE 5%-WATER - 1,000 ML IV SCH (01:52)
[2020-11-18] MEDS: INSULIN SLIDING SCALE (NOVOLOG) 1 VIAL SQ SCH ×3 (06:30→16:11)
[2020-11-18] MEDS: INSULIN (LEVEMIR) 100 UNITS/ML UNITS SQ SCH (06:30)
[2020-11-18 08:23] LABS: POTASSIUM 3.6 mmol/L (3.5-5.1)
[2020-11-18 08:29] LABS: ALBUMIN 2.4 g/dl (3.4-5.0); BLOOD UREA NITROGEN 27.6 mg/dL (7-18); CALCIUM 8.3 mg/dL (8.5-10.1)
[2020-11-18 08:32] LABS: CREATININE 1.2 mg/dL (0.55-1.3); PHOSPHOROUS 2.9 mg/dL (2.5-4.9)
[2020-11-18 08:33] LABS: BILIRUBIN,TOTAL 0.7 mg/dL (0.2-1); TOT PROT 5.6 g/dl (6.4-8.2)
[2020-11-18 08:34] LABS: HEMATOCRIT 26.2 % (32.4-45.2); HEMOGLOBIN 8.7 GM/dL (10.7-15.3); MCH 30.3 pg (25.7-33.7); MCHC 33.3 g/dl (32.0-36.0); MEAN CELL VOLUME 91.1 fl (80-96); MEAN PLT VOLUME 9.1 fl (7.5-11.1); PLATELET COUNT 147 K/MM3 (134-434); RBC 2.88 M/mm3 (3.60-5.2); RDW 17.7 % (11.6-15.6); WHITE BLOOD COUNT 9.1 K/mm3 (4.0-10.0)
[2020-11-18] MEDS ORDERED: POTASSIUM CHLORIDE 20 MEQ in DEXTROSE 5%-WATER - 1,000 ML IV SCH (08:54)
[2020-11-18] MEDS: PANTOPRAZOLE 40 MG TABLET PO SCH ×3 (09:28→23:28)
[2020-11-18] MEDS: MULTIVITAMINS THER W-MINERALS COMBO TABLET (FP) PO SCH ×2 (09:28→10:59)
[2020-11-18] MEDS: AMINO ACIDS/PROTEIN HYDROLYS 30 ML LIQUID.PKT PO SCH ×3 (09:28→18:43)
[2020-11-18] MEDS ORDERED: POTASSIUM CHLORIDE 20 MEQ in AMINO ACIDS 4.25%/D5W 1,000 ML IV SCH (15:15)
[2020-11-18] MEDS ORDERED: AMINO ACIDS 4.25%/D5W 1,000 ML IV SCH (15:15)
[2020-11-18] MEDS: AMOX TR/POT CLAV 875MG/125MG TABLETS (FP) PO SCH (19:10)
[2020-11-19] MEDS: INSULIN SLIDING SCALE (NOVOLOG) 1 VIAL SQ SCH ×3 (06:29→16:49)
[2020-11-19] MEDS: INSULIN (LEVEMIR) 100 UNITS/ML UNITS SQ SCH (06:29)
[2020-11-19 07:46] LABS: HEMATOCRIT 26.5 % (32.4-45.2); HEMOGLOBIN 8.6 GM/dL (10.7-15.3); MCHC 32.3 g/dl (32.0-36.0); MEAN CELL VOLUME 92.7 fl (80-96); MEAN PLT VOLUME 9.6 fl (7.5-11.1); PLATELET COUNT 152 K/MM3 (134-434); RBC 2.86 M/mm3 (3.60-5.2); RDW 18.1 % (11.6-15.6); WHITE BLOOD COUNT 11.3 K/mm3 (4.0-10.0)
[2020-11-19 08:03] LABS: POTASSIUM 3.8 mmol/L (3.5-5.1)
[2020-11-19 08:11] LABS: BLOOD UREA NITROGEN 34.5 mg/dL (7-18); CALCIUM 8.6 mg/dL (8.5-10.1)
[2020-11-19 08:14] LABS: CREATININE 1.4 mg/dL (0.55-1.3)
[2020-11-19] MEDS ORDERED: PT OWN MED DRAWER 7, Y5N ONE (09:14)
[2020-11-19] MEDS: AMOX TR/POT CLAV 875MG/125MG TABLETS (FP) PO SCH ×2 (09:32→17:17)
[2020-11-19] MEDS: AMINO ACIDS/PROTEIN HYDROLYS 30 ML LIQUID.PKT PO SCH ×2 (09:33→17:17)
[2020-11-19] MEDS: POTASSIUM CHLORIDE 20 MEQ in AMINO ACIDS 4.25%/D5W 1,000 ML IV SCH (10:58)
[2020-11-19] MEDS: LOSARTAN POTASSIUM 25 MG TABLET PO SCH (10:59)
[2020-11-19] MEDS: PANTOPRAZOLE 40 MG TABLET PO SCH ×2 (10:59→21:55)
[2020-11-19] MEDS: MULTIVITAMINS THER W-MINERALS COMBO TABLET (FP) PO SCH (11:00)
[2020-11-19 15:37] LABS: EPI CELLS 17 /uL (0-25.1); HYALINE CASTS 9 /uL (0-3.1); URINE APPEARANCE CLOUDY; URINE BACTERIA 2 /uL (0-1359); URINE BILIRUBIN NEGATIVE (NEGATIVE); URINE COLOR YELLOW; URINE GLUCOSE (UA) NEGATIVE (NEGATIVE); URINE KETONE NEGATIVE (NEGATIVE); URINE LEUK ESTERASE NEGATIVE (NEGATIVE); URINE NITRITE NEGATIVE (NEGATIVE); URINE PROTEIN 1+ (NEGATIVE); URINE UROBILINOGEN 0.2 mg/dL (0.2-1.0); URINE WBC 10 /uL (0-25.8)
[2020-11-19 15:39] LABS: URINE RBC 28.3 /uL (0-23.9)
[2020-11-20] MEDS: POTASSIUM CHLORIDE 20 MEQ in AMINO ACIDS 4.25%/D5W 1,000 ML IV SCH ×2 (02:07→17:35)
[2020-11-20] MEDS: INSULIN (LEVEMIR) 100 UNITS/ML UNITS SQ SCH (06:44)
[2020-11-20] MEDS: INSULIN SLIDING SCALE (NOVOLOG) 1 VIAL SQ SCH ×3 (06:45→16:57)
[2020-11-20 07:50] LABS: POTASSIUM 4.2 mmol/L (3.5-5.1)
[2020-11-20 07:52] LABS: HEMATOCRIT 25.6 % (32.4-45.2); HEMOGLOBIN 8.3 GM/dL (10.7-15.3); MCH 30.1 pg (25.7-33.7); MCHC 32.6 g/dl (32.0-36.0); MEAN CELL VOLUME 92.3 fl (80-96); MEAN PLT VOLUME 9.7 fl (7.5-11.1); PLATELET COUNT 205 K/MM3 (134-434); RBC 2.77 M/mm3 (3.60-5.2); RDW 18.2 % (11.6-15.6); WHITE BLOOD COUNT 14.1 K/mm3 (4.0-10.0)
[2020-11-20 08:21] LABS: BLOOD UREA NITROGEN 51.2 mg/dL (7-18); CALCIUM 9.1 mg/dL (8.5-10.1); MAGNESIUM 2.2 mg/dL (1.8-2.4)
[2020-11-20 08:22] LABS: ALBUMIN 2.7 g/dl (3.4-5.0)
[2020-11-20 08:25] LABS: PHOSPHOROUS 4.6 mg/dL (2.5-4.9)
[2020-11-20 08:26] LABS: BILIRUBIN,TOTAL 0.7 mg/dL (0.2-1); TOT PROT 6.6 g/dl (6.4-8.2)
[2020-11-20] MEDS: PANTOPRAZOLE 40 MG TABLET PO SCH (09:55)
[2020-11-20] MEDS: MULTIVITAMINS THER W-MINERALS COMBO TABLET (FP) PO SCH (09:55)
[2020-11-20] MEDS: LOSARTAN POTASSIUM 25 MG TABLET PO SCH (09:55)
[2020-11-20] MEDS: AMINO ACIDS/PROTEIN HYDROLYS 30 ML LIQUID.PKT PO SCH ×2 (09:55→17:35)
[2020-11-20] MEDS: AMOX TR/POT CLAV 875MG/125MG TABLETS (FP) PO SCH ×2 (09:55→17:35)
[2020-11-20] MEDS: SODIUM CHLORIDE 0.45% 1,000 ML IV SCH (14:34)
[2020-11-20] MEDS ORDERED: SODIUM BICARBONATE 8.4% 50 MEQ/50 ML DISP.SYRIN IVPUSH ONE ×2 (15:31)
[2020-11-20] MEDS ORDERED: SODIUM BICARBONATE 8.4% 50 MEQ/50 ML VIAL IVPUSH ONE (17:30)
[2020-11-20 19:48] LABS: HEMATOCRIT 26.2 % (32.4-45.2); HEMOGLOBIN 8.2 GM/dL (10.7-15.3); MCH 29.9 pg (25.7-33.7); MCHC 31.1 g/dl (32.0-36.0); MEAN CELL VOLUME 95.9 fl (80-96); PLATELET COUNT 198 K/MM3 (134-434); RBC 2.73 M/mm3 (3.60-5.2); RDW 19.6 % (11.6-15.6); WHITE BLOOD COUNT 15.6 K/mm3 (4.0-10.0)
[2020-11-20] MEDS: PANTOPRAZOLE SODIUM 40 MG VIAL IVPUSH SCH (21:23)
[2020-11-21 01:45] LABS: HEMATOCRIT 20.2 % (32.4-45.2); MCH 29.8 pg (25.7-33.7); MCHC 29.6 g/dl (32.0-36.0); MEAN CELL VOLUME 100.7 fl (80-96); MEAN PLT VOLUME 10.3 fl (7.5-11.1); PLATELET COUNT 169 K/MM3 (134-434); RBC 2.01 M/mm3 (3.60-5.2); RDW 20.5 % (11.6-15.6); WHITE BLOOD COUNT 12.2 K/mm3 (4.0-10.0)
[2020-11-21 06:21] LABS: POTASSIUM 4.4 mmol/L (3.5-5.1)
[2020-11-21 06:23] LABS: CALCIUM 8.5 mg/dL (8.5-10.1)
[2020-11-21] MEDS: INSULIN SLIDING SCALE (NOVOLOG) 1 VIAL SQ SCH ×4 (06:23→18:33)
[2020-11-21 06:24] LABS: ALBUMIN 2.7 g/dl (3.4-5.0); BLOOD UREA NITROGEN 68.6 mg/dL (7-18)
[2020-11-21 06:27] LABS: CREATININE 3.6 mg/dL (0.55-1.3)
[2020-11-21] MEDS: INSULIN (LEVEMIR) 100 UNITS/ML UNITS SQ SCH (06:27)
[2020-11-21 06:28] LABS: BILIRUBIN,TOTAL 0.6 mg/dL (0.2-1); TOT PROT 6.4 g/dl (6.4-8.2)
[2020-11-21] MEDS: AMOX TR/POT CLAV 875MG/125MG TABLETS (FP) PO SCH (09:36)
[2020-11-21] MEDS: AMINO ACIDS/PROTEIN HYDROLYS 30 ML LIQUID.PKT PO SCH ×2 (09:37→17:38)
[2020-11-21] MEDS: MULTIVITAMINS THER W-MINERALS COMBO TABLET (FP) PO SCH (09:37)
[2020-11-21] MEDS: PANTOPRAZOLE SODIUM 40 MG VIAL IVPUSH SCH (11:57)
[2020-11-21] MEDS: PANTOPRAZOLE SODIUM 80 MG in SODIUM CHLORIDE 100 ML IVPB SCH ×2 (13:19→22:11)
[2020-11-21] MEDS: POTASSIUM CHLORIDE 20 MEQ in AMINO ACIDS 4.25%/D5W 1,000 ML IV SCH (14:22)
[2020-11-21] MEDS: SODIUM CHLORIDE 0.45% 1,000 ML IV SCH (14:56)
[2020-11-21 22:32] LABS: BASO % 0.7 % (0-2.0); EOS % 0.9 % (0-4.5); HEMATOCRIT 31.9 % (32.4-45.2); HEMOGLOBIN 10.2 GM/dL (10.7-15.3); LYMPH % 20.9 % (8-40); MCH 29.2 pg (25.7-33.7); MCHC 31.9 g/dl (32.0-36.0); MEAN CELL VOLUME 91.7 fl (80-96); MEAN PLT VOLUME 9.6 fl (7.5-11.1); MONO % 8.3 % (3.8-10.2); NEUT % 69.2 % (42.8-82.8); PLATELET COUNT 240 K/MM3 (134-434); RBC 3.48 M/mm3 (3.60-5.2); RDW 16.6 % (11.6-15.6); WHITE BLOOD COUNT 16.4 K/mm3 (4.0-10.0)
[2020-11-21 22:37] LABS: POTASSIUM 4.7 mmol/L (3.5-5.1)
[2020-11-21 22:38] LABS: CALCIUM 8.5 mg/dL (8.5-10.1)
[2020-11-21 22:39] LABS: BLOOD UREA NITROGEN 77.4 mg/dL (7-18)
[2020-11-21 22:42] LABS: CREATININE 4.3 mg/dL (0.55-1.3)
[2020-11-21 22:56] LABS: INR 1.18 (0.83-1.09); PROTHROMBIN TIME (PATIENT) 14.4 SEC (9.7-13.0)
[2020-11-21 23:15] LABS: ANISOCYTOSIS 1+; MACROCYTOSIS 0; PLATELET ESTIMATE NORMAL
[2020-11-22] MEDS: POTASSIUM CHLORIDE 20 MEQ in AMINO ACIDS 4.25%/D5W 1,000 ML IV SCH ×3 (03:10→21:29)
[2020-11-22] MEDS: INSULIN SLIDING SCALE (NOVOLOG) 1 VIAL SQ SCH ×3 (06:03→17:14)
[2020-11-22] MEDS: INSULIN (LEVEMIR) 100 UNITS/ML UNITS SQ SCH (06:04)
[2020-11-22] MEDS: PANTOPRAZOLE SODIUM 80 MG in SODIUM CHLORIDE 100 ML IVPB SCH ×3 (08:25→21:28)
[2020-11-22 08:28] LABS: BASO % 0.9 % (0-2.0); EOS % 0.9 % (0-4.5); HEMATOCRIT 30.8 % (32.4-45.2); HEMOGLOBIN 9.8 GM/dL (10.7-15.3); LYMPH % 17.9 % (8-40); MEAN CELL VOLUME 90.7 fl (80-96); MEAN PLT VOLUME 9.4 fl (7.5-11.1); MONO % 8.9 % (3.8-10.2); NEUT % 71.4 % (42.8-82.8); PLATELET COUNT 223 K/MM3 (134-434); WHITE BLOOD COUNT 12.6 K/mm3 (4.0-10.0)
[2020-11-22 08:59] LABS: POTASSIUM 4.5 mmol/L (3.5-5.1)
[2020-11-22 09:07] LABS: ALBUMIN 2.4 g/dl (3.4-5.0)
[2020-11-22 09:08] LABS: BILIRUBIN,TOTAL 0.7 mg/dL (0.2-1); BLOOD UREA NITROGEN 79.9 mg/dL (7-18); CREATININE 4.3 mg/dL (0.55-1.3)
[2020-11-22 09:09] LABS: CALCIUM 8.4 mg/dL (8.5-10.1)
[2020-11-22] MEDS ORDERED: PT OWN MED DRAWER 7, Y5N ONE (09:22)
[2020-11-22] MEDS: AMINO ACIDS/PROTEIN HYDROLYS 30 ML LIQUID.PKT PO SCH ×2 (09:33→17:15)
[2020-11-22] MEDS: MULTIVITAMINS THER W-MINERALS COMBO TABLET (FP) PO SCH (09:34)
[2020-11-22] MEDS ORDERED: SODIUM BICARBONATE 8.4% - 50 MEQ in SODIUM CHLORIDE 0.45% 1,000 ML IV SCH (11:45)
[2020-11-22 12:23] LABS: ANISOCYTOSIS 1+; MACROCYTOSIS 1+; PLATELET ESTIMATE NORMAL
[2020-11-22] MEDS: SODIUM BICARBONATE 8.4% - 50 MEQ in SODIUM CHLORIDE 0.45% 1,000 ML IV SCH (21:40)
[2020-11-23] MEDS: INSULIN (LEVEMIR) 100 UNITS/ML UNITS SQ SCH (06:53)
[2020-11-23] MEDS: PANTOPRAZOLE SODIUM 80 MG in SODIUM CHLORIDE 100 ML IVPB SCH ×2 (06:53→14:08)
[2020-11-23] MEDS: INSULIN SLIDING SCALE (NOVOLOG) 1 VIAL SQ SCH ×3 (06:53→17:13)
[2020-11-23] MEDS: AMINO ACIDS/PROTEIN HYDROLYS 30 ML LIQUID.PKT PO SCH ×2 (08:00→17:14)
[2020-11-23] MEDS: SODIUM BICARBONATE 8.4% - 50 MEQ in SODIUM CHLORIDE 0.45% 1,000 ML IV SCH (09:00)
[2020-11-23] MEDS: POTASSIUM CHLORIDE 20 MEQ in AMINO ACIDS 4.25%/D5W 1,000 ML IV SCH (10:01)
[2020-11-23] MEDS: MULTIVITAMINS THER W-MINERALS COMBO TABLET (FP) PO SCH (10:24)
[2020-11-24] MEDS: SODIUM BICARBONATE 8.4% - 50 MEQ in SODIUM CHLORIDE 0.45% 1,000 ML IV SCH ×3 (01:34→20:41)
[2020-11-24] MEDS: PANTOPRAZOLE SODIUM 80 MG in SODIUM CHLORIDE 100 ML IVPB SCH ×2 (01:35→11:19)
[2020-11-24] MEDS: POTASSIUM CHLORIDE 20 MEQ in AMINO ACIDS 4.25%/D5W 1,000 ML IV SCH ×2 (01:35→17:45)
[2020-11-24] MEDS: INSULIN (LEVEMIR) 100 UNITS/ML UNITS SQ SCH (06:49)
[2020-11-24] MEDS: INSULIN SLIDING SCALE (NOVOLOG) 1 VIAL SQ SCH ×3 (06:50→17:20)
[2020-11-24 07:42] LABS: HEMOGLOBIN 10.5 GM/dL (10.7-15.3); MCH 30.1 pg (25.7-33.7); MCHC 33.8 g/dl (32.0-36.0); MEAN CELL VOLUME 89.3 fl (80-96); PLATELET COUNT 287 K/MM3 (134-434); RBC 3.47 M/mm3 (3.60-5.2); WHITE BLOOD COUNT 10.7 K/mm3 (4.0-10.0)
[2020-11-24] MEDS: AMINO ACIDS/PROTEIN HYDROLYS 30 ML LIQUID.PKT PO SCH ×2 (08:00→17:46)
[2020-11-24] MEDS: MULTIVITAMINS THER W-MINERALS COMBO TABLET (FP) PO SCH (10:00)
[2020-11-25] MEDS: INSULIN (LEVEMIR) 100 UNITS/ML UNITS SQ SCH (06:37)
[2020-11-25] MEDS: INSULIN SLIDING SCALE (NOVOLOG) 1 VIAL SQ SCH ×3 (06:37→16:38)
[2020-11-25 07:21] LABS: HEMATOCRIT 30.6 % (32.4-45.2); HEMOGLOBIN 10.3 GM/dL (10.7-15.3); MCH 30.4 pg (25.7-33.7); MCHC 33.7 g/dl (32.0-36.0); MEAN CELL VOLUME 90.2 fl (80-96); MEAN PLT VOLUME 8.7 fl (7.5-11.1); PLATELET COUNT 287 K/MM3 (134-434); RBC 3.39 M/mm3 (3.60-5.2); RDW 17.3 % (11.6-15.6); WHITE BLOOD COUNT 8.3 K/mm3 (4.0-10.0)
[2020-11-25 07:37] LABS: POTASSIUM 4.7 mmol/L (3.5-5.1)
[2020-11-25 07:49] LABS: ALBUMIN 2.5 g/dl (3.4-5.0); CALCIUM 8.6 mg/dL (8.5-10.1)
[2020-11-25 07:52] LABS: CREATININE 5.3 mg/dL (0.55-1.3)
[2020-11-25 07:54] LABS: BILIRUBIN,TOTAL 0.8 mg/dL (0.2-1)
[2020-11-25 08:03] LABS: BLOOD UREA NITROGEN 109.8 mg/dL (7-18)
[2020-11-25] MEDS: AMINO ACIDS/PROTEIN HYDROLYS 30 ML LIQUID.PKT PO SCH ×3 (08:42→17:17)
[2020-11-25] MEDS: POTASSIUM CHLORIDE 20 MEQ in AMINO ACIDS 4.25%/D5W 1,000 ML IV SCH ×2 (10:31→15:12)
[2020-11-25] MEDS: SODIUM BICARBONATE 8.4% - 50 MEQ in SODIUM CHLORIDE 0.45% 1,000 ML IV SCH ×3 (10:31→22:08)
[2020-11-25] MEDS: MULTIVITAMINS THER W-MINERALS COMBO TABLET (FP) PO SCH (11:00)
[2020-11-26] MEDS: POTASSIUM CHLORIDE 20 MEQ in AMINO ACIDS 4.25%/D5W 1,000 ML IV SCH ×2 (01:48→06:07)
[2020-11-26] MEDS: INSULIN SLIDING SCALE (NOVOLOG) 1 VIAL SQ SCH ×3 (06:02→17:58)
[2020-11-26] MEDS: INSULIN (LEVEMIR) 100 UNITS/ML UNITS SQ SCH (06:02)
[2020-11-26] MEDS: SODIUM BICARBONATE 8.4% - 50 MEQ in SODIUM CHLORIDE 0.45% 1,000 ML IV SCH ×3 (06:08→22:26)
[2020-11-26 07:34] LABS: HEMATOCRIT 29.2 % (32.4-45.2); HEMOGLOBIN 9.9 GM/dL (10.7-15.3); MCH 30.3 pg (25.7-33.7); MCHC 34.1 g/dl (32.0-36.0); MEAN CELL VOLUME 88.8 fl (80-96); MEAN PLT VOLUME 8.5 fl (7.5-11.1); PLATELET COUNT 329 K/MM3 (134-434); RBC 3.28 M/mm3 (3.60-5.2); WHITE BLOOD COUNT 7.6 K/mm3 (4.0-10.0)
[2020-11-26 07:35] LABS: POTASSIUM 4.5 mmol/L (3.5-5.1)
[2020-11-26 07:39] LABS: ALBUMIN 2.4 g/dl (3.4-5.0); CALCIUM 8.2 mg/dL (8.5-10.1)
[2020-11-26 07:43] LABS: CREATININE 4.5 mg/dL (0.55-1.3)
[2020-11-26 07:44] LABS: BILIRUBIN,TOTAL 0.6 mg/dL (0.2-1); TOT PROT 5.9 g/dl (6.4-8.2)
[2020-11-26 07:53] LABS: BLOOD UREA NITROGEN 109.1 mg/dL (7-18)
[2020-11-26] MEDS ORDERED: PT OWN MED DRAWER 7, Y5N ONE (09:16)
[2020-11-26] MEDS: SERTRALINE HCL 25 MG TABLET (FP) PO SCH (09:38)
[2020-11-26] MEDS: AMINO ACIDS/PROTEIN HYDROLYS 30 ML LIQUID.PKT PO SCH ×2 (09:38→17:58)
[2020-11-26] MEDS: MULTIVITAMINS THER W-MINERALS COMBO TABLET (FP) PO SCH (09:39)
[2020-11-26 21:21] LABS: MAGNESIUM 1.9 mg/dL (1.8-2.4)
[2020-11-26 21:24] LABS: PHOSPHOROUS 5.2 mg/dL (2.5-4.9)
[2020-11-26] MEDS: AMINO ACIDS 4.25%/D5W 1,000 ML IV SCH (22:26)
[2020-11-27] MEDS: INSULIN (LEVEMIR) 100 UNITS/ML UNITS SQ SCH (06:24)
[2020-11-27] MEDS: INSULIN SLIDING SCALE (NOVOLOG) 1 VIAL SQ SCH ×3 (06:25→17:38)
[2020-11-27 07:39] LABS: BASO % 1.8 % (0-2.0); EOS % 2.2 % (0-4.5); HEMATOCRIT 29.5 % (32.4-45.2); LYMPH % 26.4 % (8-40); MCH 30.5 pg (25.7-33.7); MCHC 33.9 g/dl (32.0-36.0); MEAN CELL VOLUME 89.8 fl (80-96); MEAN PLT VOLUME 8.3 fl (7.5-11.1); MONO % 12.3 % (3.8-10.2); NEUT % 57.3 % (42.8-82.8); PLATELET COUNT 304 K/MM3 (134-434); RBC 3.29 M/mm3 (3.60-5.2); RDW 17.3 % (11.6-15.6); WHITE BLOOD COUNT 6.2 K/mm3 (4.0-10.0)
[2020-11-27 07:57] LABS: POTASSIUM 4.7 mmol/L (3.5-5.1)
[2020-11-27 08:00] LABS: CALCIUM 8.3 mg/dL (8.5-10.1)
[2020-11-27 08:01] LABS: ALBUMIN 2.3 g/dl (3.4-5.0)
[2020-11-27 08:04] LABS: CREATININE 3.7 mg/dL (0.55-1.3)
[2020-11-27 08:05] LABS: BILIRUBIN,TOTAL 0.5 mg/dL (0.2-1); TOT PROT 5.9 g/dl (6.4-8.2)
[2020-11-27 08:22] LABS: BLOOD UREA NITROGEN 109.4 mg/dL (7-18)
[2020-11-27] MEDS: AMINO ACIDS/PROTEIN HYDROLYS 30 ML LIQUID.PKT PO SCH ×2 (09:59→17:16)
[2020-11-27] MEDS: SODIUM BICARBONATE 8.4% - 50 MEQ in SODIUM CHLORIDE 0.45% 1,000 ML IV SCH ×2 (10:00→10:08)
[2020-11-27] MEDS: SERTRALINE HCL 25 MG TABLET (FP) PO SCH (10:01)
[2020-11-27] MEDS: MULTIVITAMINS THER W-MINERALS COMBO TABLET (FP) PO SCH (10:01)
[2020-11-27] MEDS: SODIUM BICARBONATE 8.4% - 75 MEQ in SODIUM CHLORIDE 0.45% 1,000 ML IV SCH ×2 (17:27→23:49)
[2020-11-27] MEDS: AMINO ACIDS 4.25%/D5W 1,000 ML IV SCH ×2 (18:36→23:47)
[2020-11-28] MEDS: INSULIN SLIDING SCALE (NOVOLOG) 1 VIAL SQ SCH ×3 (06:34→17:59)
[2020-11-28] MEDS: INSULIN (LEVEMIR) 100 UNITS/ML UNITS SQ SCH (06:34)
[2020-11-28] MEDS: AMINO ACIDS/PROTEIN HYDROLYS 30 ML LIQUID.PKT PO SCH ×2 (08:33→16:45)
[2020-11-28] MEDS: SERTRALINE HCL 25 MG TABLET (FP) PO SCH (09:27)
[2020-11-28] MEDS: MULTIVITAMINS THER W-MINERALS COMBO TABLET (FP) PO SCH (09:27)
[2020-11-28 11:24] LABS: BASO % 0.8 % (0-2.0); EOS % 2.4 % (0-4.5); HEMATOCRIT 31.5 % (32.4-45.2); HEMOGLOBIN 10.4 GM/dL (10.7-15.3); LYMPH % 23.8 % (8-40); MCH 29.6 pg (25.7-33.7); MCHC 33.1 g/dl (32.0-36.0); MEAN CELL VOLUME 89.5 fl (80-96); MEAN PLT VOLUME 8.2 fl (7.5-11.1); MONO % 13.5 % (3.8-10.2); NEUT % 59.5 % (42.8-82.8); PLATELET COUNT 332 K/MM3 (134-434); RBC 3.52 M/mm3 (3.60-5.2); RDW 16.6 % (11.6-15.6); WHITE BLOOD COUNT 6.4 K/mm3 (4.0-10.0)
[2020-11-28 11:51] LABS: POTASSIUM 4.2 mmol/L (3.5-5.1)
[2020-11-28 11:57] LABS: CALCIUM 8.7 mg/dL (8.5-10.1); MAGNESIUM 1.8 mg/dL (1.8-2.4)
[2020-11-28 12:00] LABS: CREATININE 2.8 mg/dL (0.55-1.3); PHOSPHOROUS 3.4 mg/dL (2.5-4.9)
[2020-11-28 12:09] LABS: BLOOD UREA NITROGEN 105.4 mg/dL (7-18)
[2020-11-28] MEDS: SODIUM BICARBONATE 8.4% - 75 MEQ in SODIUM CHLORIDE 0.45% 1,000 ML IV SCH (12:54)
[2020-11-29] MEDS: AMINO ACIDS 4.25%/D5W 1,000 ML IV SCH ×2 (00:50→13:24)
[2020-11-29] MEDS: SODIUM BICARBONATE 8.4% - 75 MEQ in SODIUM CHLORIDE 0.45% 1,000 ML IV SCH ×2 (00:55→13:17)
[2020-11-29] MEDS: INSULIN (LEVEMIR) 100 UNITS/ML UNITS SQ SCH (06:16)
[2020-11-29] MEDS: INSULIN SLIDING SCALE (NOVOLOG) 1 VIAL SQ SCH ×3 (06:17→17:37)
[2020-11-29 07:06] LABS: HEMATOCRIT 29.6 % (32.4-45.2); MCH 29.9 pg (25.7-33.7); MCHC 33.7 g/dl (32.0-36.0); MEAN CELL VOLUME 88.6 fl (80-96); MEAN PLT VOLUME 7.7 fl (7.5-11.1); PLATELET COUNT 322 K/MM3 (134-434); RBC 3.34 M/mm3 (3.60-5.2); RDW 17.1 % (11.6-15.6); WHITE BLOOD COUNT 5.9 K/mm3 (4.0-10.0)
[2020-11-29 07:22] LABS: POTASSIUM 3.6 mmol/L (3.5-5.1)
[2020-11-29 07:28] LABS: BLOOD UREA NITROGEN 96.6 mg/dL (7-18); CALCIUM 8.3 mg/dL (8.5-10.1); MAGNESIUM 1.5 mg/dL (1.8-2.4)
[2020-11-29 07:31] LABS: CREATININE 2.3 mg/dL (0.55-1.3); PHOSPHOROUS 2.8 mg/dL (2.5-4.9)
[2020-11-29] MEDS ORDERED: MAGNESIUM 2GM/50ML STERILE WATER IVPB IVPB ONE ×2 (09:30→13:00)
[2020-11-29] MEDS: AMINO ACIDS/PROTEIN HYDROLYS 30 ML LIQUID.PKT PO SCH ×2 (10:09→16:35)
[2020-11-29] MEDS: MULTIVITAMINS THER W-MINERALS COMBO TABLET (FP) PO SCH (10:09)
[2020-11-29] MEDS: SERTRALINE HCL 25 MG TABLET (FP) PO SCH (10:09)
[2020-11-29] MEDS ORDERED: PT OWN MED DRAWER 7, Y5N ONE (15:19)
[2020-11-29] MEDS: POTASSIUM CHLORIDE 10 MEQ in SODIUM CHLORIDE 0.45% 1,000 ML IVPB SCH (17:28)
[2020-11-30] MEDS: AMINO ACIDS 4.25%/D5W 1,000 ML IV SCH ×2 (06:48→16:05)
[2020-11-30] MEDS: INSULIN (LEVEMIR) 100 UNITS/ML UNITS SQ SCH (06:48)
[2020-11-30] MEDS: INSULIN SLIDING SCALE (NOVOLOG) 1 VIAL SQ SCH ×3 (06:48→18:02)
[2020-11-30] MEDS: AMINO ACIDS/PROTEIN HYDROLYS 30 ML LIQUID.PKT PO SCH ×2 (07:37→18:07)
[2020-11-30] MEDS: SERTRALINE HCL 25 MG TABLET (FP) PO SCH (09:59)
[2020-11-30] MEDS: MULTIVITAMINS THER W-MINERALS COMBO TABLET (FP) PO SCH (09:59)
[2020-11-30 11:17] LABS: EOS % 2.2 % (0-4.5); HEMATOCRIT 30.7 % (32.4-45.2); HEMOGLOBIN 10.1 GM/dL (10.7-15.3); LYMPH % 23.6 % (8-40); MCH 29.5 pg (25.7-33.7); MCHC 32.8 g/dl (32.0-36.0); MEAN CELL VOLUME 90.1 fl (80-96); MEAN PLT VOLUME 7.9 fl (7.5-11.1); MONO % 11.7 % (3.8-10.2); NEUT % 61.5 % (42.8-82.8); PLATELET COUNT 307 K/MM3 (134-434); RBC 3.41 M/mm3 (3.60-5.2); RDW 16.6 % (11.6-15.6); WHITE BLOOD COUNT 6.3 K/mm3 (4.0-10.0)
[2020-11-30 11:39] LABS: POTASSIUM 3.5 mmol/L (3.5-5.1)
[2020-11-30 11:41] LABS: CALCIUM 8.8 mg/dL (8.5-10.1)
[2020-11-30 11:42] LABS: ALBUMIN 2.5 g/dl (3.4-5.0); BLOOD UREA NITROGEN 93.3 mg/dL (7-18); MAGNESIUM 1.8 mg/dL (1.8-2.4)
[2020-11-30 11:45] LABS: CREATININE 1.7 mg/dL (0.55-1.3)
[2020-11-30 11:46] LABS: BILIRUBIN,TOTAL 0.6 mg/dL (0.2-1); TOT PROT 5.7 g/dl (6.4-8.2)
[2020-11-30 12:00] LABS: PHOSPHOROUS 2.1 mg/dL (2.5-4.9)
[2020-11-30 13:05] LABS: PLATELET ESTIMATE NORMAL
[2020-11-30] MEDS ORDERED: KCL 10 MEQ IVPB 10 MEQ/100 ML INFUS.BAG IVPB SCH (15:15)
[2020-11-30] MEDS ORDERED: NAPH,MB-DB/K PH,MBDB POWDER PACKET PO ONE (15:18)
[2020-11-30] MEDS: POTASSIUM CHLORIDE 10 MEQ in SODIUM CHLORIDE 0.45% 1,000 ML IVPB SCH ×2 (16:01→16:56)
[2020-12-01] MEDS: INSULIN (LEVEMIR) 100 UNITS/ML UNITS SQ SCH (06:20)
[2020-12-01] MEDS: INSULIN SLIDING SCALE (NOVOLOG) 1 VIAL SQ SCH ×3 (06:22→17:10)
[2020-12-01 08:28] LABS: POTASSIUM 3.6 mmol/L (3.5-5.1)
[2020-12-01 08:32] LABS: ALBUMIN 2.5 g/dl (3.4-5.0); BLOOD UREA NITROGEN 82.2 mg/dL (7-18); CALCIUM 8.7 mg/dL (8.5-10.1); MAGNESIUM 1.7 mg/dL (1.8-2.4)
[2020-12-01 08:35] LABS: CREATININE 1.4 mg/dL (0.55-1.3)
[2020-12-01 08:36] LABS: BILIRUBIN,TOTAL 0.5 mg/dL (0.2-1); TOT PROT 5.7 g/dl (6.4-8.2)
[2020-12-01] MEDS: AMINO ACIDS 4.25%/D5W 1,000 ML IV SCH (09:39)
[2020-12-01] MEDS: AMINO ACIDS/PROTEIN HYDROLYS 30 ML LIQUID.PKT PO SCH ×2 (09:39→17:10)
[2020-12-01] MEDS: SERTRALINE HCL 25 MG TABLET (FP) PO SCH (09:40)
[2020-12-01] MEDS: MULTIVITAMINS THER W-MINERALS COMBO TABLET (FP) PO SCH (09:40)
[2020-12-01] MEDS ORDERED: MAGNESIUM 2GM/50ML STERILE WATER IVPB IVPB ONE ×3 (09:45→13:00)
[2020-12-01] MEDS: COLLAGENASE CLOSTRIDIUM HIST. 30 GRAMS TUBE TP SCH (10:50)
[2020-12-01] MEDS ORDERED: PT OWN MED DRAWER 7, Y5N ONE (15:30)
[2020-12-01] MEDS: POTASSIUM CHLORIDE 10 MEQ in SODIUM CHLORIDE 0.45% 1,000 ML IVPB SCH (15:31)
[2020-12-01] MEDS: FAMOTIDINE 20 MG/50 ML IVPB 20 MG/50 ML MG IVPB SCH (21:28)
[2020-12-01] MEDS: ZINC OXIDE 20% TOPICAL OINTMENT 30 GM TUBE TP SCH (21:28)
[2020-12-02] MEDS: AMINO ACIDS 4.25%/D5W 1,000 ML IV SCH (06:09)
[2020-12-02] MEDS: INSULIN (LEVEMIR) 100 UNITS/ML UNITS SQ SCH (06:09)
[2020-12-02] MEDS: INSULIN SLIDING SCALE (NOVOLOG) 1 VIAL SQ SCH ×3 (06:10→17:46)
[2020-12-02 07:43] LABS: POTASSIUM 3.5 mmol/L (3.5-5.1)
[2020-12-02 07:45] LABS: CALCIUM 8.5 mg/dL (8.5-10.1)
[2020-12-02 07:46] LABS: BLOOD UREA NITROGEN 72.2 mg/dL (7-18)
[2020-12-02 07:49] LABS: CREATININE 1.3 mg/dL (0.55-1.3)
[2020-12-02] MEDS: COLLAGENASE CLOSTRIDIUM HIST. 30 GRAMS TUBE TP SCH (09:18)
[2020-12-02] MEDS: ZINC OXIDE 20% TOPICAL OINTMENT 30 GM TUBE TP SCH ×2 (09:18→21:58)
[2020-12-02] MEDS: AMINO ACIDS/PROTEIN HYDROLYS 30 ML LIQUID.PKT PO SCH ×3 (09:18→17:47)
[2020-12-02] MEDS: FAMOTIDINE 20 MG/50 ML IVPB 20 MG/50 ML MG IVPB SCH ×2 (09:18→21:58)
[2020-12-02] MEDS: MULTIVITAMINS THER W-MINERALS COMBO TABLET (FP) PO SCH (09:29)
[2020-12-02] MEDS: SERTRALINE HCL 25 MG TABLET (FP) PO SCH (09:29)
[2020-12-02] MEDS: POTASSIUM CHLORIDE 10 MEQ in SODIUM CHLORIDE 0.45% 1,000 ML IVPB SCH (16:30)
[2020-12-02] MEDS: POTASSIUM CHLORIDE 20 MEQ in AMINO ACIDS 4.25%/D5W 1,000 ML IV SCH (17:46)
[2020-12-02] MEDS ORDERED: PT OWN MED DRAWER 7, Y5N ONE (21:55)
[2020-12-02] MEDS: LATANOPROST 0.005% OPHTH SOLN 2.5ML BOTTLE OU SCH (21:58)
[2020-12-03] MEDS: INSULIN SLIDING SCALE (NOVOLOG) 1 VIAL SQ SCH ×3 (06:27→16:56)
[2020-12-03] MEDS: INSULIN (LEVEMIR) 100 UNITS/ML UNITS SQ SCH (06:27)
[2020-12-03] MEDS: AMINO ACIDS/PROTEIN HYDROLYS 30 ML LIQUID.PKT PO SCH ×2 (09:58→16:56)
[2020-12-03] MEDS: FAMOTIDINE 20 MG/50 ML IVPB 20 MG/50 ML MG IVPB SCH ×2 (09:59→21:50)
[2020-12-03] MEDS: COLLAGENASE CLOSTRIDIUM HIST. 30 GRAMS TUBE TP SCH (10:00)
[2020-12-03] MEDS: ZINC OXIDE 20% TOPICAL OINTMENT 30 GM TUBE TP SCH ×2 (10:04→21:52)
[2020-12-03] MEDS: SERTRALINE HCL 25 MG TABLET (FP) PO SCH (10:04)
[2020-12-03] MEDS: MULTIVITAMINS THER W-MINERALS COMBO TABLET (FP) PO SCH (10:04)
[2020-12-03] MEDS: TIMOLOL 0.5% OPHTHALMIC SOL 5 ML BOTTLE OU SCH (10:04)
[2020-12-03] MEDS ORDERED: TETRACAINE/BENZOCAINE/BUTAMBEN 20 GM SPR TP STA (11:29)
[2020-12-03] MEDS ORDERED: THIAMINE HCL 200 MG/2 ML VIAL IVPB ONE (13:28)
[2020-12-03 14:40] LABS: HEMATOCRIT 30.5 % (32.4-45.2); HEMOGLOBIN 10.1 GM/dL (10.7-15.3); MCH 29.6 pg (25.7-33.7); MCHC 33.1 g/dl (32.0-36.0); MEAN CELL VOLUME 89.3 fl (80-96); MEAN PLT VOLUME 7.4 fl (7.5-11.1); PLATELET COUNT 289 K/MM3 (134-434); RBC 3.41 M/mm3 (3.60-5.2); RDW 17.1 % (11.6-15.6); WHITE BLOOD COUNT 8.4 K/mm3 (4.0-10.0)
[2020-12-03 15:00] LABS: POTASSIUM 3.8 mmol/L (3.5-5.1)
[2020-12-03 15:01] LABS: CALCIUM 9.2 mg/dL (8.5-10.1)
[2020-12-03 15:02] LABS: BLOOD UREA NITROGEN 59.6 mg/dL (7-18)
[2020-12-03 15:05] LABS: CREATININE 1.2 mg/dL (0.55-1.3)
[2020-12-03] MEDS ORDERED: DEXTROSE 5%-WATER - 1,000 ML IV SCH (15:30)
[2020-12-03] MEDS: POTASSIUM CHLORIDE 20 MEQ in AMINO ACIDS 4.25%/D5W 1,000 ML IV SCH ×2 (17:02→17:03)
[2020-12-03] MEDS: LATANOPROST 0.005% OPHTH SOLN 2.5ML BOTTLE OU SCH (21:52)
[2020-12-04] MEDS: POTASSIUM CHLORIDE 20 MEQ in AMINO ACIDS 4.25%/D5W 1,000 ML IV SCH ×2 (03:42→16:10)
[2020-12-04] MEDS: INSULIN SLIDING SCALE (NOVOLOG) 1 VIAL SQ SCH ×3 (06:04→16:48)
[2020-12-04] MEDS: INSULIN (LEVEMIR) 100 UNITS/ML UNITS SQ SCH (06:04)
[2020-12-04 08:21] LABS: BASO % 0.9 % (0-2.0); EOS % 5.3 % (0-4.5); HEMATOCRIT 24.6 % (32.4-45.2); LYMPH % 25.9 % (8-40); MCH 29.5 pg (25.7-33.7); MCHC 27.9 g/dl (32.0-36.0); MEAN CELL VOLUME 105.9 fl (80-96); MEAN PLT VOLUME 8.2 fl (7.5-11.1); MONO % 11.3 % (3.8-10.2); NEUT % 56.6 % (42.8-82.8); PLATELET COUNT 195 K/MM3 (134-434); RBC 2.32 M/mm3 (3.60-5.2); RDW 19.9 % (11.6-15.6); WHITE BLOOD COUNT 5.2 K/mm3 (4.0-10.0)
[2020-12-04 08:44] LABS: POTASSIUM 5.3 mmol/L (3.5-5.1)
[2020-12-04 08:51] LABS: CALCIUM 7.2 mg/dL (8.5-10.1)
[2020-12-04 08:52] LABS: BLOOD UREA NITROGEN 46.6 mg/dL (7-18); MAGNESIUM 1.4 mg/dL (1.8-2.4)
[2020-12-04 08:54] LABS: CREATININE 1.1 mg/dL (0.55-1.3)
[2020-12-04 08:56] LABS: BILIRUBIN,TOTAL 0.6 mg/dL (0.2-1); TOT PROT 4.6 g/dl (6.4-8.2)
[2020-12-04 09:01] LABS: PHOSPHOROUS 1.2 mg/dL (2.5-4.9)
[2020-12-04] MEDS: FAMOTIDINE 20 MG/50 ML IVPB 20 MG/50 ML MG IVPB SCH ×2 (09:16→21:59)
[2020-12-04] MEDS: AMINO ACIDS/PROTEIN HYDROLYS 30 ML LIQUID.PKT PO SCH ×2 (09:16→17:56)
[2020-12-04] MEDS: SERTRALINE HCL 25 MG TABLET (FP) PO SCH (09:17)
[2020-12-04] MEDS: ZINC OXIDE 20% TOPICAL OINTMENT 30 GM TUBE TP SCH ×2 (09:17→21:40)
[2020-12-04] MEDS: TIMOLOL 0.5% OPHTHALMIC SOL 5 ML BOTTLE OU SCH (09:18)
[2020-12-04] MEDS ORDERED: PT OWN MED DRAWER 7, Y5N ONE (09:46)
[2020-12-04] MEDS ORDERED: MULTIVIT INJ. ADULT COMBO WITH VIT K 1 COMBO 10 ML VIAL IV SCH ×2 (10:00→10:41)
[2020-12-04 10:06] LABS: HEMOGLOBIN 6.8 GM/dL (10.7-15.3)
[2020-12-04 10:51] LABS: ANISOCYTOSIS 3+; MACROCYTOSIS 0; OVALOCYTE 2+; PLATELET ESTIMATE NORMAL; TARGET CELLS 1+
[2020-12-04 11:17] LABS: HEMATOCRIT 28.6 % (32.4-45.2); HEMOGLOBIN 9.4 GM/dL (10.7-15.3); MCH 29.5 pg (25.7-33.7); MCHC 32.7 g/dl (32.0-36.0); MEAN CELL VOLUME 90.2 fl (80-96); MEAN PLT VOLUME 7.8 fl (7.5-11.1); PLATELET COUNT 252 K/MM3 (134-434); RBC 3.17 M/mm3 (3.60-5.2); RDW 17.1 % (11.6-15.6); WHITE BLOOD COUNT 7.5 K/mm3 (4.0-10.0)
[2020-12-04 11:29] LABS: POTASSIUM 3.7 mmol/L (3.5-5.1)
[2020-12-04 11:31] LABS: CALCIUM 8.9 mg/dL (8.5-10.1)
[2020-12-04 11:32] LABS: MAGNESIUM 1.6 mg/dL (1.8-2.4)
[2020-12-04 11:35] LABS: PHOSPHOROUS 1.4 mg/dL (2.5-4.9)
[2020-12-04] MEDS: COLLAGENASE CLOSTRIDIUM HIST. 30 GRAMS TUBE TP SCH (11:38)
[2020-12-04] MEDS ORDERED: POTASSIUM CHLORIDE 20 MEQ in AMINO ACIDS 4.25%/D5W 1,000 ML IV SCH ×2 (14:00→14:45)
[2020-12-04] MEDS: DEXTROSE 5%-WATER - 1,000 ML IV SCH (14:20)
[2020-12-04] MEDS ORDERED: MAGNESIUM SULF 50% (8.12 MEQ/2 ML-1 GM VIAL) IVPB ONE (15:00)
[2020-12-04] MEDS ORDERED: POTASSIUM PHOSPHATE 30 MM in SODIUM CHLORIDE 500 ML IVPB ONE (15:30)
[2020-12-04] MEDS: MULTIVIT INJ. ADULT COMBO WITH VIT K 1 COMBO 10 ML VIAL IV SCH (16:13)
[2020-12-04] MEDS: LATANOPROST 0.005% OPHTH SOLN 2.5ML BOTTLE OU SCH (21:38)
[2020-12-05] MEDS: POTASSIUM CHLORIDE 20 MEQ in AMINO ACIDS 4.25%/D5W 1,000 ML IV SCH ×2 (04:10→18:31)
[2020-12-05] MEDS: DEXTROSE 5%-WATER - 1,000 ML IV SCH ×2 (04:22→18:30)
[2020-12-05] MEDS: INSULIN (LEVEMIR) 100 UNITS/ML UNITS SQ SCH (06:02)
[2020-12-05] MEDS: INSULIN SLIDING SCALE (NOVOLOG) 1 VIAL SQ SCH ×3 (06:02→17:15)
[2020-12-05 07:22] LABS: HEMATOCRIT 32.4 % (32.4-45.2); HEMOGLOBIN 10.3 GM/dL (10.7-15.3); MCH 29.3 pg (25.7-33.7); MCHC 31.9 g/dl (32.0-36.0); MEAN CELL VOLUME 91.8 fl (80-96); PLATELET COUNT 244 K/MM3 (134-434); RBC 3.53 M/mm3 (3.60-5.2); RDW 17.4 % (11.6-15.6); WHITE BLOOD COUNT 8.7 K/mm3 (4.0-10.0)
[2020-12-05] MEDS: AMINO ACIDS/PROTEIN HYDROLYS 30 ML LIQUID.PKT PO SCH ×2 (08:18→16:47)
[2020-12-05 08:55] LABS: BLOOD UREA NITROGEN 45.2 mg/dL (7-18); CREATININE 0.9 mg/dL (0.55-1.3); GLUCOSE,RANDOM 126 mg/dL (74-106); POTASSIUM 3.9 mmol/L (3.5-5.1); SODIUM 146 mmol/L (136-145)
[2020-12-05 08:56] LABS: CALCIUM 8.8 mg/dL (8.5-10.1); CHLORIDE 119 mmol/L (98-107); CO2 16 mmol/L (21-32); MAGNESIUM 1.8 mg/dL (1.8-2.4); PHOSPHOROUS 2.8 mg/dL (2.5-4.9)
[2020-12-05] MEDS: COLLAGENASE CLOSTRIDIUM HIST. 30 GRAMS TUBE TP SCH (09:39)
[2020-12-05] MEDS: ZINC OXIDE 20% TOPICAL OINTMENT 30 GM TUBE TP SCH ×2 (09:39→21:03)
[2020-12-05] MEDS: SERTRALINE HCL 25 MG TABLET (FP) PO SCH (09:39)
[2020-12-05] MEDS: TIMOLOL 0.5% OPHTHALMIC SOL 5 ML BOTTLE OU SCH (09:39)
[2020-12-05] MEDS: FAMOTIDINE 20 MG/50 ML IVPB 20 MG/50 ML MG IVPB SCH ×2 (09:45→21:03)
[2020-12-05] MEDS: MULTIVIT INJ. ADULT COMBO WITH VIT K 1 COMBO 10 ML VIAL IV SCH (18:23)
[2020-12-05] MEDS: LATANOPROST 0.005% OPHTH SOLN 2.5ML BOTTLE OU SCH (21:03)
[2020-12-06] MEDS: POTASSIUM CHLORIDE 20 MEQ in AMINO ACIDS 4.25%/D5W 1,000 ML IV SCH (06:04)
[2020-12-06] MEDS: INSULIN (LEVEMIR) 100 UNITS/ML UNITS SQ SCH (06:12)
[2020-12-06] MEDS: INSULIN SLIDING SCALE (NOVOLOG) 1 VIAL SQ SCH ×3 (06:13→17:38)
[2020-12-06] MEDS ORDERED: PT OWN MED DRAWER 7, Y5N ONE (09:41)
[2020-12-06] MEDS: FAMOTIDINE 20 MG/50 ML IVPB 20 MG/50 ML MG IVPB SCH ×2 (10:20→22:06)
[2020-12-06] MEDS: AMINO ACIDS/PROTEIN HYDROLYS 30 ML LIQUID.PKT PO SCH ×2 (10:21→17:38)
[2020-12-06] MEDS: TIMOLOL 0.5% OPHTHALMIC SOL 5 ML BOTTLE OU SCH (10:26)
[2020-12-06] MEDS: SERTRALINE HCL 25 MG TABLET (FP) PO SCH (10:27)
[2020-12-06] MEDS: COLLAGENASE CLOSTRIDIUM HIST. 30 GRAMS TUBE TP SCH (10:50)
[2020-12-06] MEDS: ZINC OXIDE 20% TOPICAL OINTMENT 30 GM TUBE TP SCH ×2 (10:50→22:08)
[2020-12-06] MEDS ORDERED: SODIUM BICARBONATE 650 MG TABLET PO ONE (15:00)
[2020-12-06] MEDS ORDERED: SODIUM CHLORIDE 0.45% 1,000 ML IV SCH ×2 (15:00→17:10)
[2020-12-06 16:06] LABS: BASO % 0.9 % (0-2.0); EOS % 4.9 % (0-4.5); HEMATOCRIT 29.4 % (32.4-45.2); HEMOGLOBIN 9.4 GM/dL (10.7-15.3); LYMPH % 22.2 % (8-40); MCH 28.8 pg (25.7-33.7); MCHC 31.9 g/dl (32.0-36.0); MEAN CELL VOLUME 90.3 fl (80-96); MONO % 10.1 % (3.8-10.2); NEUT % 61.9 % (42.8-82.8); PLATELET COUNT 214 K/MM3 (134-434); RBC 3.26 M/mm3 (3.60-5.2); RDW 17.6 % (11.6-15.6)
[2020-12-06 16:07] LABS: POTASSIUM 4.2 mmol/L (3.5-5.1)
[2020-12-06] MEDS: MULTIVIT INJ. ADULT COMBO WITH VIT K 1 COMBO 10 ML VIAL IV SCH (16:08)
[2020-12-06 16:09] LABS: ALBUMIN 2.8 g/dl (3.4-5.0); BLOOD UREA NITROGEN 45.3 mg/dL (7-18); CALCIUM 8.9 mg/dL (8.5-10.1)
[2020-12-06 16:13] LABS: CREATININE 1.2 mg/dL (0.55-1.3)
[2020-12-06 16:14] LABS: BILIRUBIN,TOTAL 0.8 mg/dL (0.2-1)
[2020-12-06] MEDS: LATANOPROST 0.005% OPHTH SOLN 2.5ML BOTTLE OU SCH (22:07)
[2020-12-07] MEDS: INSULIN SLIDING SCALE (NOVOLOG) 1 VIAL SQ SCH ×3 (06:55→17:22)
[2020-12-07] MEDS: INSULIN (LEVEMIR) 100 UNITS/ML UNITS SQ SCH (06:56)
[2020-12-07] MEDS: FAMOTIDINE 20 MG/50 ML IVPB 20 MG/50 ML MG IVPB SCH ×2 (09:54→21:36)
[2020-12-07] MEDS: TIMOLOL 0.5% OPHTHALMIC SOL 5 ML BOTTLE OU SCH (09:56)
[2020-12-07] MEDS: COLLAGENASE CLOSTRIDIUM HIST. 30 GRAMS TUBE TP SCH (09:56)
[2020-12-07] MEDS: ZINC OXIDE 20% TOPICAL OINTMENT 30 GM TUBE TP SCH ×2 (09:56→21:37)
[2020-12-07] MEDS: AMINO ACIDS/PROTEIN HYDROLYS 30 ML LIQUID.PKT PO SCH (09:57)
[2020-12-07] MEDS: SERTRALINE HCL 25 MG TABLET (FP) PO SCH (11:24)
[2020-12-07] MEDS: NYSTATIN POWDER 100,000 UNITS/GM - 15 GM TOPICAL POWDER TP SCH ×2 (11:24→21:37)
[2020-12-07] MEDS ORDERED: AMINO ACIDS 4.25%/D5W 1,000 ML IV SCH ×2 (13:45→16:30)
[2020-12-07] MEDS ORDERED: [UNRECOGNIZED DRUG - OTHER] IV SCH (13:45)
[2020-12-07 13:48] LABS: POTASSIUM 4.2 mmol/L (3.5-5.1)
[2020-12-07 13:50] LABS: ALBUMIN 2.9 g/dl (3.4-5.0); BLOOD UREA NITROGEN 38.3 mg/dL (7-18); CALCIUM 9.2 mg/dL (8.5-10.1)
[2020-12-07 13:54] LABS: CREATININE 1.1 mg/dL (0.55-1.3)
[2020-12-07 13:55] LABS: BILIRUBIN,TOTAL 0.7 mg/dL (0.2-1); TOT PROT 6.3 g/dl (6.4-8.2)
[2020-12-07] MEDS: SODIUM CHLORIDE 0.45% 1,000 ML IV SCH (16:46)
[2020-12-07] MEDS ORDERED: PT OWN MED DRAWER 7, Y5N ONE ×2 (18:09→18:56)
[2020-12-07] MEDS: AMINO ACIDS 4.25%/D5W 1,000 ML IV SCH (18:47)
[2020-12-07] MEDS: MULTIVIT INJ. ADULT COMBO WITH VIT K 1 COMBO 10 ML VIAL IV SCH (18:58)
[2020-12-07] MEDS: LATANOPROST 0.005% OPHTH SOLN 2.5ML BOTTLE OU SCH (21:37)
[2020-12-08] MEDS: AMINO ACIDS 4.25%/D5W 1,000 ML IV SCH ×3 (04:59→23:56)
[2020-12-08] MEDS: MULTIVIT INJ. ADULT COMBO WITH VIT K 1 COMBO 10 ML VIAL IV SCH ×2 (05:00→09:15)
[2020-12-08] MEDS: SODIUM CHLORIDE 0.45% 1,000 ML IV SCH (05:09)
[2020-12-08] MEDS: INSULIN (LEVEMIR) 100 UNITS/ML UNITS SQ SCH (06:09)
[2020-12-08] MEDS: INSULIN SLIDING SCALE (NOVOLOG) 1 VIAL SQ SCH ×3 (06:09→17:23)
[2020-12-08 08:23] LABS: BASO % 0.5 % (0-2.0); EOS % 6.1 % (0-4.5); HEMATOCRIT 27.3 % (32.4-45.2); HEMOGLOBIN 8.9 GM/dL (10.7-15.3); LYMPH % 31.2 % (8-40); MCH 29.4 pg (25.7-33.7); MCHC 32.5 g/dl (32.0-36.0); MEAN CELL VOLUME 90.4 fl (80-96); MEAN PLT VOLUME 8.3 fl (7.5-11.1); MONO % 10.4 % (3.8-10.2); NEUT % 51.8 % (42.8-82.8); PLATELET COUNT 169 K/MM3 (134-434); RBC 3.02 M/mm3 (3.60-5.2); RDW 17.3 % (11.6-15.6); WHITE BLOOD COUNT 7.1 K/mm3 (4.0-10.0)
[2020-12-08 08:56] LABS: POTASSIUM 3.7 mmol/L (3.5-5.1)
[2020-12-08 09:04] LABS: CALCIUM 8.8 mg/dL (8.5-10.1)
[2020-12-08 09:05] LABS: ALBUMIN 2.6 g/dl (3.4-5.0); BLOOD UREA NITROGEN 35.4 mg/dL (7-18); MAGNESIUM 1.7 mg/dL (1.8-2.4)
[2020-12-08 09:08] LABS: PHOSPHOROUS 3.6 mg/dL (2.5-4.9)
[2020-12-08] MEDS: FAMOTIDINE 20 MG/50 ML IVPB 20 MG/50 ML MG IVPB SCH ×2 (09:08→21:02)
[2020-12-08 09:09] LABS: BILIRUBIN,TOTAL 0.6 mg/dL (0.2-1); TOT PROT 5.7 g/dl (6.4-8.2)
[2020-12-08] MEDS: ZINC OXIDE 20% TOPICAL OINTMENT 30 GM TUBE TP SCH ×2 (09:09→21:04)
[2020-12-08] MEDS: COLLAGENASE CLOSTRIDIUM HIST. 30 GRAMS TUBE TP SCH (09:09)
[2020-12-08] MEDS: NYSTATIN POWDER 100,000 UNITS/GM - 15 GM TOPICAL POWDER TP SCH ×2 (09:09→21:02)
[2020-12-08] MEDS: TIMOLOL 0.5% OPHTHALMIC SOL 5 ML BOTTLE OU SCH (09:09)
[2020-12-08] MEDS: SERTRALINE HCL 25 MG TABLET (FP) PO SCH (09:09)
[2020-12-08] MEDS ORDERED: MAGNESIUM 2GM/50ML STERILE WATER IVPB IVPB ONE (10:00)
[2020-12-08] MEDS ORDERED: AMINO ACIDS 4.25%/D5W 1,000 ML IV SCH (12:17)
[2020-12-08] MEDS ORDERED: MAGNESIUM SULF 50% (8.12 MEQ/2 ML-1 GM VIAL) IVPB ONE (12:30)
[2020-12-08] MEDS: LATANOPROST 0.005% OPHTH SOLN 2.5ML BOTTLE OU SCH (21:03)
[2020-12-09] MEDS: INSULIN SLIDING SCALE (NOVOLOG) 1 VIAL SQ SCH ×3 (06:41→18:25)
[2020-12-09] MEDS: INSULIN (LEVEMIR) 100 UNITS/ML UNITS SQ SCH (06:41)
[2020-12-09 09:36] LABS: BASO % 0.4 % (0-2.0); EOS % 4.9 % (0-4.5); HEMATOCRIT 26.8 % (32.4-45.2); HEMOGLOBIN 8.8 GM/dL (10.7-15.3); MCH 29.8 pg (25.7-33.7); MEAN CELL VOLUME 90.3 fl (80-96); MEAN PLT VOLUME 8.4 fl (7.5-11.1); MONO % 11.1 % (3.8-10.2); NEUT % 58.6 % (42.8-82.8); PLATELET COUNT 188 K/MM3 (134-434); RBC 2.97 M/mm3 (3.60-5.2); RDW 17.5 % (11.6-15.6); WHITE BLOOD COUNT 9.9 K/mm3 (4.0-10.0)
[2020-12-09 09:50] LABS: POTASSIUM 3.4 mmol/L (3.5-5.1)
[2020-12-09] MEDS: ZINC OXIDE 20% TOPICAL OINTMENT 30 GM TUBE TP SCH ×2 (09:53→21:14)
[2020-12-09] MEDS: FAMOTIDINE 20 MG/50 ML IVPB 20 MG/50 ML MG IVPB SCH ×2 (09:53→21:14)
[2020-12-09] MEDS: NYSTATIN POWDER 100,000 UNITS/GM - 15 GM TOPICAL POWDER TP SCH ×2 (09:53→21:14)
[2020-12-09] MEDS: COLLAGENASE CLOSTRIDIUM HIST. 30 GRAMS TUBE TP SCH (09:53)
[2020-12-09] MEDS: TIMOLOL 0.5% OPHTHALMIC SOL 5 ML BOTTLE OU SCH (09:53)
[2020-12-09] MEDS: metoPROLOL SUCCINATE 25 MG TAB.SR.24H (FP) PO SCH (10:15)
[2020-12-09] MEDS: SERTRALINE HCL 25 MG TABLET (FP) PO SCH (10:16)
[2020-12-09 10:46] LABS: CALCIUM 8.6 mg/dL (8.5-10.1)
[2020-12-09 10:47] LABS: ALBUMIN 2.7 g/dl (3.4-5.0); BLOOD UREA NITROGEN 37.1 mg/dL (7-18); MAGNESIUM 2.1 mg/dL (1.8-2.4)
[2020-12-09 10:50] LABS: PHOSPHOROUS 3.1 mg/dL (2.5-4.9)
[2020-12-09 10:51] LABS: BILIRUBIN,TOTAL 0.5 mg/dL (0.2-1)
[2020-12-09] MEDS ORDERED: metoPROLOL SUCCINATE 25 MG TAB.SR.24H (FP) PO SCH (12:08)
[2020-12-09] MEDS ORDERED: PT OWN MED DRAWER 7, Y5N ONE (12:20)
[2020-12-09] MEDS: AMINO ACIDS 4.25%/D5W 1,000 ML IV SCH (12:22)
[2020-12-09] MEDS: MULTIVIT INJ. ADULT COMBO WITH VIT K 1 COMBO 10 ML VIAL IV SCH (14:24)
[2020-12-09] MEDS ORDERED: GLUCAGON 1 MG KIT IVPUSH ONE (14:40)
[2020-12-09] MEDS: KCL 10 MEQ IVPB 10 MEQ/100 ML INFUS.BAG IVPB SCH ×2 (18:22→21:14)
[2020-12-09] MEDS: LATANOPROST 0.005% OPHTH SOLN 2.5ML BOTTLE OU SCH (21:14)
[2020-12-10] MEDS: INSULIN (LEVEMIR) 100 UNITS/ML UNITS SQ SCH (06:03)
[2020-12-10] MEDS: AMINO ACIDS 4.25%/D5W 1,000 ML IV SCH ×3 (06:03→23:06)
[2020-12-10] MEDS: INSULIN SLIDING SCALE (NOVOLOG) 1 VIAL SQ SCH ×3 (06:03→16:52)
[2020-12-10] MEDS ORDERED: PT OWN MED DRAWER 7, Y5N ONE (10:42)
[2020-12-10] MEDS: COLLAGENASE CLOSTRIDIUM HIST. 30 GRAMS TUBE TP SCH (10:47)
[2020-12-10] MEDS: MULTIVIT INJ. ADULT COMBO WITH VIT K 1 COMBO 10 ML VIAL IV SCH (10:47)
[2020-12-10] MEDS: NYSTATIN POWDER 100,000 UNITS/GM - 15 GM TOPICAL POWDER TP SCH ×2 (10:47→21:51)
[2020-12-10] MEDS: FAMOTIDINE 20 MG/50 ML IVPB 20 MG/50 ML MG IVPB SCH ×2 (10:47→21:46)
[2020-12-10] MEDS: metoPROLOL SUCCINATE 25 MG TAB.SR.24H (FP) PO SCH (10:48)
[2020-12-10] MEDS: TIMOLOL 0.5% OPHTHALMIC SOL 5 ML BOTTLE OU SCH (10:48)
[2020-12-10] MEDS: SERTRALINE HCL 25 MG TABLET (FP) PO SCH (10:48)
[2020-12-10] MEDS: ZINC OXIDE 20% TOPICAL OINTMENT 30 GM TUBE TP SCH ×2 (10:48→21:52)
[2020-12-10] MEDS ORDERED: POTASSIUM CHLORIDE TABS 20 MEQ TABLET.ER (FP) PO ONE (12:37)
[2020-12-10] MEDS ORDERED: KCL 10 MEQ IVPB 10 MEQ/100 ML INFUS.BAG IVPB SCH ×2 (12:45)
[2020-12-10 14:34] LABS: POTASSIUM 3.7 mmol/L (3.5-5.1)
[2020-12-10 14:36] LABS: ALBUMIN 2.6 g/dl (3.4-5.0); BLOOD UREA NITROGEN 39.7 mg/dL (7-18); CALCIUM 8.7 mg/dL (8.5-10.1); MAGNESIUM 1.6 mg/dL (1.8-2.4)
[2020-12-10 14:41] LABS: BILIRUBIN,TOTAL 0.4 mg/dL (0.2-1); TOT PROT 5.9 g/dl (6.4-8.2)
[2020-12-10] MEDS: THIAMINE HCL 100 MG TABLET (FP) PO SCH (21:45)
[2020-12-10] MEDS: LACTOBACILLUS ACIDOPHILUS 1 TABLET PO SCH (21:45)
[2020-12-10] MEDS: LATANOPROST 0.005% OPHTH SOLN 2.5ML BOTTLE OU SCH (21:51)
[2020-12-10 23:39] LABS: EPI CELLS 33 /uL (0-25.1); HYALINE CASTS 5 /uL (0-3.1); URINE APPEARANCE CLOUDY; URINE BACTERIA 224 /uL (0-1359); URINE BILIRUBIN NEGATIVE (NEGATIVE); URINE COLOR YELLOW; URINE GLUCOSE (UA) NEGATIVE (NEGATIVE); URINE KETONE NEGATIVE (NEGATIVE); URINE LEUK ESTERASE 3+ (NEGATIVE); URINE NITRITE NEGATIVE (NEGATIVE); URINE PROTEIN TRACE (NEGATIVE); URINE UROBILINOGEN 0.2 mg/dL (0.2-1.0); URINE WBC 570 /uL (0-25.8)
[2020-12-11 00:17] LABS: URINE RBC 24.2 /uL (0-23.9); YEAST NEGATIVE (NEGATIVE)
[2020-12-11] MEDS: ACETAMINOPHEN 650 MG/20.3 ML ORAL SOLUTION (CUPS) PEG PRN ×2 (04:00→21:56)
[2020-12-11] MEDS: INSULIN SLIDING SCALE (NOVOLOG) 1 VIAL SQ SCH ×3 (06:28→17:41)
[2020-12-11] MEDS: INSULIN (LEVEMIR) 100 UNITS/ML UNITS SQ SCH (06:28)
[2020-12-11] MEDS ORDERED: PT OWN MED DRAWER 7, Y5N ONE (08:23)
[2020-12-11] MEDS: FAMOTIDINE 20 MG/50 ML IVPB 20 MG/50 ML MG IVPB SCH ×2 (09:23→21:55)
[2020-12-11] MEDS: SERTRALINE HCL 25 MG TABLET (FP) PO SCH (09:23)
[2020-12-11] MEDS: THIAMINE HCL 100 MG TABLET (FP) PO SCH ×2 (09:23→21:55)
[2020-12-11] MEDS: NYSTATIN POWDER 100,000 UNITS/GM - 15 GM TOPICAL POWDER TP SCH ×2 (09:24→22:10)
[2020-12-11] MEDS: MULTIVIT INJ. ADULT COMBO WITH VIT K 1 COMBO 10 ML VIAL IV SCH (09:25)
[2020-12-11] MEDS: TIMOLOL 0.5% OPHTHALMIC SOL 5 ML BOTTLE OU SCH (09:25)
[2020-12-11] MEDS: ZINC OXIDE 20% TOPICAL OINTMENT 30 GM TUBE TP SCH ×2 (09:25→22:10)
[2020-12-11] MEDS: COLLAGENASE CLOSTRIDIUM HIST. 30 GRAMS TUBE TP SCH (09:27)
[2020-12-11] MEDS: METOPROLOL TARTRATE 25 MG TABLET (FP) PO SCH ×2 (09:44→21:55)
[2020-12-11] MEDS ORDERED: AMINO ACIDS 4.25%/D5W 1,000 ML IV SCH (10:00)
[2020-12-11 14:45] LABS: BASO % 0.6 % (0-2.0); EOS % 4.8 % (0-4.5); HEMOGLOBIN 8.6 GM/dL (10.7-15.3); MCH 29.4 pg (25.7-33.7); MCHC 33.1 g/dl (32.0-36.0); MEAN CELL VOLUME 88.8 fl (80-96); MEAN PLT VOLUME 8.3 fl (7.5-11.1); MONO % 12.4 % (3.8-10.2); NEUT % 53.2 % (42.8-82.8); PLATELET COUNT 200 K/MM3 (134-434); RBC 2.93 M/mm3 (3.60-5.2); RDW 17.1 % (11.6-15.6); WHITE BLOOD COUNT 8.5 K/mm3 (4.0-10.0)
[2020-12-11 15:09] LABS: POTASSIUM 3.5 mmol/L (3.5-5.1)
[2020-12-11 15:12] LABS: CALCIUM 8.6 mg/dL (8.5-10.1)
[2020-12-11 15:13] LABS: ALBUMIN 2.5 g/dl (3.4-5.0); BLOOD UREA NITROGEN 41.4 mg/dL (7-18); MAGNESIUM 1.6 mg/dL (1.8-2.4)
[2020-12-11 15:17] LABS: CREATININE 1.1 mg/dL (0.55-1.3); PHOSPHOROUS 2.3 mg/dL (2.5-4.9)
[2020-12-11 15:18] LABS: BILIRUBIN,TOTAL 0.4 mg/dL (0.2-1); TOT PROT 5.7 g/dl (6.4-8.2)
[2020-12-11] MEDS ORDERED: POTASSIUM PHOSPHATE 10 MM in SODIUM CHLORIDE 250 ML IVPB ONE (20:56)
[2020-12-11] MEDS: LACTOBACILLUS ACIDOPHILUS 1 TABLET PO SCH (21:56)
[2020-12-11] MEDS: LATANOPROST 0.005% OPHTH SOLN 2.5ML BOTTLE OU SCH (22:09)
[2020-12-12] MEDS: AMINO ACIDS 4.25%/D5W 1,000 ML IV SCH (04:33)
[2020-12-12] MEDS: INSULIN (LEVEMIR) 100 UNITS/ML UNITS SQ SCH (06:04)
[2020-12-12] MEDS: INSULIN SLIDING SCALE (NOVOLOG) 1 VIAL SQ SCH ×3 (06:04→16:55)
[2020-12-12 07:57] LABS: BASO % 0.4 % (0-2.0); EOS % 3.9 % (0-4.5); HEMATOCRIT 27.1 % (32.4-45.2); LYMPH % 26.1 % (8-40); MCH 29.6 pg (25.7-33.7); MCHC 33.1 g/dl (32.0-36.0); MEAN CELL VOLUME 89.2 fl (80-96); MEAN PLT VOLUME 8.3 fl (7.5-11.1); MONO % 14.3 % (3.8-10.2); NEUT % 55.3 % (42.8-82.8); PLATELET COUNT 215 K/MM3 (134-434); RBC 3.04 M/mm3 (3.60-5.2); RDW 17.3 % (11.6-15.6)
[2020-12-12 08:16] LABS: POTASSIUM 3.3 mmol/L (3.5-5.1)
[2020-12-12 08:24] LABS: BLOOD UREA NITROGEN 36.7 mg/dL (7-18); CALCIUM 8.7 mg/dL (8.5-10.1)
[2020-12-12 08:25] LABS: ALBUMIN 2.6 g/dl (3.4-5.0); MAGNESIUM 1.6 mg/dL (1.8-2.4)
[2020-12-12 08:27] LABS: BILIRUBIN,TOTAL 0.4 mg/dL (0.2-1); PHOSPHOROUS 3.1 mg/dL (2.5-4.9)
[2020-12-12] MEDS: TAMSULOSIN HCL 0.4 MG CAP PO SCH (08:27)
[2020-12-12 08:29] LABS: TOT PROT 5.9 g/dl (6.4-8.2)
[2020-12-12] MEDS: FAMOTIDINE 20 MG/50 ML IVPB 20 MG/50 ML MG IVPB SCH ×2 (10:47→22:27)
[2020-12-12] MEDS: SERTRALINE HCL 25 MG TABLET (FP) PO SCH (10:48)
[2020-12-12] MEDS: THIAMINE HCL 100 MG TABLET (FP) PO SCH ×2 (10:48→22:28)
[2020-12-12] MEDS: COLLAGENASE CLOSTRIDIUM HIST. 30 GRAMS TUBE TP SCH (10:48)
[2020-12-12] MEDS: ZINC OXIDE 20% TOPICAL OINTMENT 30 GM TUBE TP SCH ×2 (10:48→22:35)
[2020-12-12] MEDS: METOPROLOL TARTRATE 25 MG TABLET (FP) PO SCH ×2 (10:48→22:28)
[2020-12-12] MEDS: TIMOLOL 0.5% OPHTHALMIC SOL 5 ML BOTTLE OU SCH (10:48)
[2020-12-12] MEDS: NYSTATIN POWDER 100,000 UNITS/GM - 15 GM TOPICAL POWDER TP SCH ×2 (10:48→22:34)
[2020-12-12] MEDS ORDERED: MAGNESIUM SULF 50% (8.12 MEQ/2 ML-1 GM VIAL) IVPB ONE (12:07)
[2020-12-12] MEDS ORDERED: POTASSIUM CHLORIDE ORAL LIQUID 20 MEQ/15 ML PEG ONE (12:07)
[2020-12-12] MEDS: MULTIVIT INJ. ADULT COMBO WITH VIT K 1 COMBO 10 ML VIAL IV SCH (13:28)
[2020-12-12] MEDS ORDERED: POTASSIUM CHLORIDE TABS 20 MEQ TABLET.ER (FP) PO ONE (18:12)
[2020-12-12] MEDS: LACTOBACILLUS ACIDOPHILUS 1 TABLET PO SCH (22:28)
[2020-12-12] MEDS: LATANOPROST 0.005% OPHTH SOLN 2.5ML BOTTLE OU SCH (22:35)
[2020-12-13] MEDS: INSULIN SLIDING SCALE (NOVOLOG) 1 VIAL SQ SCH ×3 (06:39→17:10)
[2020-12-13] MEDS: INSULIN (LEVEMIR) 100 UNITS/ML UNITS SQ SCH (06:39)
[2020-12-13 07:14] LABS: BASO % 0.4 % (0-2.0); EOS % 3.2 % (0-4.5); HEMATOCRIT 26.2 % (32.4-45.2); HEMOGLOBIN 8.5 GM/dL (10.7-15.3); LYMPH % 25.8 % (8-40); MCH 29.2 pg (25.7-33.7); MCHC 32.6 g/dl (32.0-36.0); MEAN CELL VOLUME 89.4 fl (80-96); MEAN PLT VOLUME 8.8 fl (7.5-11.1); MONO % 13.7 % (3.8-10.2); NEUT % 56.9 % (42.8-82.8); PLATELET COUNT 251 K/MM3 (134-434); RBC 2.93 M/mm3 (3.60-5.2); RDW 17.4 % (11.6-15.6)
[2020-12-13 07:40] LABS: POTASSIUM 3.7 mmol/L (3.5-5.1)
[2020-12-13 07:51] LABS: CALCIUM 8.7 mg/dL (8.5-10.1)
[2020-12-13 07:52] LABS: ALBUMIN 2.4 g/dl (3.4-5.0); BLOOD UREA NITROGEN 29.7 mg/dL (7-18); MAGNESIUM 1.9 mg/dL (1.8-2.4)
[2020-12-13 07:55] LABS: PHOSPHOROUS 3.2 mg/dL (2.5-4.9)
[2020-12-13 07:56] LABS: BILIRUBIN,TOTAL 0.5 mg/dL (0.2-1); TOT PROT 5.7 g/dl (6.4-8.2)
[2020-12-13] MEDS ORDERED: CEFTRIAXONE 2 GM in DEXTROSE 5%-WATER 2 GM/50 ML BAG IVPB ONE (09:00)
[2020-12-13] MEDS ORDERED: DEXTROSE 5%-WATER 100 ML IVPB ONE (10:15)
[2020-12-13] MEDS: SERTRALINE HCL 25 MG TABLET (FP) PO SCH (10:25)
[2020-12-13] MEDS: TAMSULOSIN HCL 0.4 MG CAP PO SCH (10:25)
[2020-12-13] MEDS: COLLAGENASE CLOSTRIDIUM HIST. 30 GRAMS TUBE TP SCH (10:25)
[2020-12-13] MEDS: NYSTATIN POWDER 100,000 UNITS/GM - 15 GM TOPICAL POWDER TP SCH ×2 (10:25→22:47)
[2020-12-13] MEDS: THIAMINE HCL 100 MG TABLET (FP) PO SCH ×2 (10:25→21:37)
[2020-12-13] MEDS: METOPROLOL TARTRATE 25 MG TABLET (FP) PO SCH ×2 (10:25→21:37)
[2020-12-13] MEDS: ZINC OXIDE 20% TOPICAL OINTMENT 30 GM TUBE TP SCH (10:26)
[2020-12-13] MEDS: TIMOLOL 0.5% OPHTHALMIC SOL 5 ML BOTTLE OU SCH (10:26)
[2020-12-13] MEDS: FAMOTIDINE 20 MG/50 ML IVPB 20 MG/50 ML MG IVPB SCH ×2 (11:27→21:37)
[2020-12-13] MEDS: MULTIVIT INJ. ADULT COMBO WITH VIT K 1 COMBO 10 ML VIAL IV SCH (13:09)
[2020-12-13] MEDS ORDERED: ZINC OXIDE/PANTHENOL/VITAMIN E 56 GM TUBE TP PRN (15:53)
[2020-12-13] MEDS: NITROFURANTOIN MACROCRYSTAL 50 MG CAPSULE (FP) GT SCH ×2 (19:28→23:29)
[2020-12-13] MEDS: LACTOBACILLUS ACIDOPHILUS 1 TABLET PO SCH (21:37)
[2020-12-13] MEDS: LATANOPROST 0.005% OPHTH SOLN 2.5ML BOTTLE OU SCH (21:38)
[2020-12-14] MEDS: NITROFURANTOIN MACROCRYSTAL 50 MG CAPSULE (FP) GT SCH ×2 (05:51→11:48)
[2020-12-14] MEDS: INSULIN SLIDING SCALE (NOVOLOG) 1 VIAL SQ SCH ×3 (07:02→17:34)
[2020-12-14 07:03] LABS: HEMATOCRIT 25.1 % (32.4-45.2); HEMOGLOBIN 8.3 GM/dL (10.7-15.3); MCH 29.1 pg (25.7-33.7); MCHC 33.2 g/dl (32.0-36.0); MEAN CELL VOLUME 87.7 fl (80-96); MEAN PLT VOLUME 8.3 fl (7.5-11.1); PLATELET COUNT 272 K/MM3 (134-434); RBC 2.86 M/mm3 (3.60-5.2); RDW 17.1 % (11.6-15.6); WHITE BLOOD COUNT 10.8 K/mm3 (4.0-10.0)
[2020-12-14] MEDS: INSULIN (LEVEMIR) 100 UNITS/ML UNITS SQ SCH (07:03)
[2020-12-14 07:39] LABS: POTASSIUM 3.5 mmol/L (3.5-5.1)
[2020-12-14 07:43] LABS: CALCIUM 8.8 mg/dL (8.5-10.1)
[2020-12-14 07:44] LABS: ALBUMIN 2.4 g/dl (3.4-5.0); BLOOD UREA NITROGEN 25.7 mg/dL (7-18); MAGNESIUM 1.8 mg/dL (1.8-2.4)
[2020-12-14 07:46] LABS: BILIRUBIN,TOTAL 0.5 mg/dL (0.2-1)
[2020-12-14 07:47] LABS: PHOSPHOROUS 3.6 mg/dL (2.5-4.9); TOT PROT 5.8 g/dl (6.4-8.2)
[2020-12-14] MEDS ORDERED: CEFTRIAXONE 1 GM in DEXTROSE 5%-WATER - 50 ML IVPB SCH (10:00)
[2020-12-14] MEDS: SERTRALINE HCL 25 MG TABLET (FP) PO SCH (10:09)
[2020-12-14] MEDS: FAMOTIDINE 20 MG/50 ML IVPB 20 MG/50 ML MG IVPB SCH ×2 (10:09→22:11)
[2020-12-14] MEDS: THIAMINE HCL 100 MG TABLET (FP) PO SCH ×2 (10:09→22:11)
[2020-12-14] MEDS: METOPROLOL TARTRATE 25 MG TABLET (FP) PO SCH ×2 (10:09→22:11)
[2020-12-14] MEDS: COLLAGENASE CLOSTRIDIUM HIST. 30 GRAMS TUBE TP SCH (10:10)
[2020-12-14] MEDS: TAMSULOSIN HCL 0.4 MG CAP PO SCH (10:10)
[2020-12-14] MEDS: MULTIVIT INJ. ADULT COMBO WITH VIT K 1 COMBO 10 ML VIAL IV SCH (10:10)
[2020-12-14] MEDS: NYSTATIN POWDER 100,000 UNITS/GM - 15 GM TOPICAL POWDER TP SCH ×2 (10:10→22:10)
[2020-12-14] MEDS: TIMOLOL 0.5% OPHTHALMIC SOL 5 ML BOTTLE OU SCH (10:24)
[2020-12-14] MEDS ORDERED: cefTRIAXone SODIUM 1 GM VIAL ONE (11:44)
[2020-12-14] MEDS ORDERED: DEXTROSE 5%-WATER - 50 ML IVPB ONE (11:45)
[2020-12-14] MEDS: CEFTRIAXONE 1 GM in DEXTROSE 5%-WATER - 50 ML IVPB SCH (11:48)
[2020-12-14 18:47] LABS: EPI CELLS >36 /uL (0-25.1); HYALINE CASTS 8 /uL (0-3.1); URINE APPEARANCE CLOUDY; URINE BACTERIA 42 /uL (0-1359); URINE BILIRUBIN NEGATIVE (NEGATIVE); URINE COLOR YELLOW; URINE GLUCOSE (UA) NEGATIVE (NEGATIVE); URINE KETONE NEGATIVE (NEGATIVE); URINE LEUK ESTERASE 1+ (NEGATIVE); URINE NITRITE NEGATIVE (NEGATIVE); URINE PROTEIN TRACE (NEGATIVE); URINE RBC 29 /uL (0-23.9); URINE UROBILINOGEN 0.2 mg/dL (0.2-1.0); URINE WBC 47 /uL (0-25.8)
[2020-12-14] MEDS: LACTOBACILLUS ACIDOPHILUS 1 TABLET PO SCH (22:11)
[2020-12-14] MEDS: LATANOPROST 0.005% OPHTH SOLN 2.5ML BOTTLE OU SCH (22:12)
[2020-12-15] MEDS: INSULIN (LEVEMIR) 100 UNITS/ML UNITS SQ SCH (06:25)
[2020-12-15] MEDS: INSULIN SLIDING SCALE (NOVOLOG) 1 VIAL SQ SCH ×3 (06:25→16:37)
[2020-12-15 07:19] LABS: HEMATOCRIT 25.2 % (32.4-45.2); HEMOGLOBIN 8.5 GM/dL (10.7-15.3); MCH 29.6 pg (25.7-33.7); MCHC 33.8 g/dl (32.0-36.0); MEAN CELL VOLUME 87.8 fl (80-96); PLATELET COUNT 303 K/MM3 (134-434); RBC 2.88 M/mm3 (3.60-5.2); RDW 16.9 % (11.6-15.6); WHITE BLOOD COUNT 7.7 K/mm3 (4.0-10.0)
[2020-12-15 07:30] LABS: POTASSIUM 3.4 mmol/L (3.5-5.1)
[2020-12-15 07:32] LABS: ALBUMIN 2.3 g/dl (3.4-5.0); CALCIUM 8.8 mg/dL (8.5-10.1)
[2020-12-15 07:33] LABS: BLOOD UREA NITROGEN 23.9 mg/dL (7-18); MAGNESIUM 1.7 mg/dL (1.8-2.4)
[2020-12-15 07:36] LABS: CREATININE 0.9 mg/dL (0.55-1.3); PHOSPHOROUS 3.4 mg/dL (2.5-4.9)
[2020-12-15 07:37] LABS: BILIRUBIN,TOTAL 0.3 mg/dL (0.2-1); TOT PROT 5.6 g/dl (6.4-8.2)
[2020-12-15] MEDS: TAMSULOSIN HCL 0.4 MG CAP PO SCH (09:30)
[2020-12-15] MEDS ORDERED: cefTRIAXone SODIUM 1 GM VIAL ONE (10:47)
[2020-12-15] MEDS ORDERED: DEXTROSE 5%-WATER - 50 ML IVPB ONE (10:47)
[2020-12-15] MEDS: METOPROLOL TARTRATE 25 MG TABLET (FP) PO SCH ×2 (10:51→21:29)
[2020-12-15] MEDS: THIAMINE HCL 100 MG TABLET (FP) PO SCH ×2 (10:51→21:29)
[2020-12-15] MEDS: SERTRALINE HCL 25 MG TABLET (FP) PO SCH (10:51)
[2020-12-15] MEDS: CEFTRIAXONE 1 GM in DEXTROSE 5%-WATER - 50 ML IVPB SCH (10:52)
[2020-12-15] MEDS: FAMOTIDINE 20 MG/50 ML IVPB 20 MG/50 ML MG IVPB SCH ×2 (10:52→21:29)
[2020-12-15] MEDS: NYSTATIN POWDER 100,000 UNITS/GM - 15 GM TOPICAL POWDER TP SCH ×2 (10:55→21:29)
[2020-12-15] MEDS: TIMOLOL 0.5% OPHTHALMIC SOL 5 ML BOTTLE OU SCH (10:56)
[2020-12-15] MEDS: COLLAGENASE CLOSTRIDIUM HIST. 30 GRAMS TUBE TP SCH (11:00)
[2020-12-15] MEDS ORDERED: KCL 10 MEQ IVPB 10 MEQ/100 ML INFUS.BAG IVPB SCH (11:00)
[2020-12-15] MEDS: MULTIVIT INJ. ADULT COMBO WITH VIT K 1 COMBO 10 ML VIAL IV SCH (11:15)
[2020-12-15] MEDS ORDERED: POTASSIUM CHLORIDE ORAL LIQUID 20 MEQ/15 ML PO ONE (11:33)
[2020-12-15] MEDS ORDERED: FUROSEMIDE 40 MG/5 ML UNIT-DOSE CUP PO ONE (12:00)
[2020-12-15] MEDS ORDERED: PT OWN MED DRAWER 7, Y5N ONE (13:19)
[2020-12-15] MEDS ORDERED: METOCLOPRAMIDE HCL 10 MG TABLET (FP) PO ONE (14:15)
[2020-12-15] MEDS: MULTIVIT-MINERALS ORAL LIQUID PEG SCH (16:00)
[2020-12-15] MEDS: LATANOPROST 0.005% OPHTH SOLN 2.5ML BOTTLE OU SCH (21:29)
[2020-12-15] MEDS: LACTOBACILLUS ACIDOPHILUS 1 TABLET PO SCH (21:29)
[2020-12-16] MEDS ORDERED: DEXTROSE 5%-WATER - 1,000 ML IV SCH (00:01)
[2020-12-16] MEDS: INSULIN SLIDING SCALE (NOVOLOG) 1 VIAL SQ SCH ×3 (06:09→17:32)
[2020-12-16] MEDS: INSULIN (LEVEMIR) 100 UNITS/ML UNITS SQ SCH (06:15)
[2020-12-16 07:37] LABS: HEMATOCRIT 26.7 % (32.4-45.2); HEMOGLOBIN 8.7 GM/dL (10.7-15.3); MCH 28.9 pg (25.7-33.7); MCHC 32.4 g/dl (32.0-36.0); MEAN PLT VOLUME 7.7 fl (7.5-11.1); PLATELET COUNT 367 K/MM3 (134-434); RDW 16.8 % (11.6-15.6); WHITE BLOOD COUNT 8.5 K/mm3 (4.0-10.0)
[2020-12-16 08:07] LABS: POTASSIUM 3.8 mmol/L (3.5-5.1)
[2020-12-16 08:26] LABS: ALBUMIN 2.6 g/dl (3.4-5.0); BLOOD UREA NITROGEN 22.9 mg/dL (7-18); MAGNESIUM 1.8 mg/dL (1.8-2.4)
[2020-12-16 08:29] LABS: CREATININE 0.9 mg/dL (0.55-1.3); PHOSPHOROUS 3.4 mg/dL (2.5-4.9)
[2020-12-16 08:31] LABS: TOT PROT 6.2 g/dl (6.4-8.2)
[2020-12-16 08:32] LABS: BILIRUBIN,TOTAL 0.5 mg/dL (0.2-1)
[2020-12-16] MEDS ORDERED: DEXTROSE 5%-WATER - 50 ML IVPB ONE (08:50)
[2020-12-16] MEDS ORDERED: cefTRIAXone SODIUM 1 GM VIAL ONE (08:50)
[2020-12-16] MEDS: TAMSULOSIN HCL 0.4 MG CAP PO SCH (09:14)
[2020-12-16] MEDS ORDERED: PT OWN MED DRAWER 7, Y5N ONE (09:17)
[2020-12-16] MEDS: METOPROLOL TARTRATE 25 MG TABLET (FP) PO SCH ×2 (09:19→21:15)
[2020-12-16] MEDS: MULTIVIT-MINERALS ORAL LIQUID PEG SCH (09:19)
[2020-12-16] MEDS: FAMOTIDINE 20 MG/50 ML IVPB 20 MG/50 ML MG IVPB SCH ×2 (09:19→21:15)
[2020-12-16] MEDS: SERTRALINE HCL 25 MG TABLET (FP) PO SCH (09:19)
[2020-12-16] MEDS: TIMOLOL 0.5% OPHTHALMIC SOL 5 ML BOTTLE OU SCH (09:20)
[2020-12-16] MEDS: THIAMINE HCL 100 MG TABLET (FP) PO SCH ×2 (09:20→21:15)
[2020-12-16] MEDS: CEFTRIAXONE 1 GM in DEXTROSE 5%-WATER - 50 ML IVPB SCH (09:20)
[2020-12-16] MEDS ORDERED: SODIUM CHLORIDE 0.45% 1,000 ML IV SCH (09:30)
[2020-12-16] MEDS: COLLAGENASE CLOSTRIDIUM HIST. 30 GRAMS TUBE TP SCH (10:18)
[2020-12-16] MEDS: NYSTATIN POWDER 100,000 UNITS/GM - 15 GM TOPICAL POWDER TP SCH ×2 (10:18→21:15)
[2020-12-16] MEDS: LACTOBACILLUS ACIDOPHILUS 1 TABLET PO SCH (21:15)
[2020-12-16] MEDS: LATANOPROST 0.005% OPHTH SOLN 2.5ML BOTTLE OU SCH (21:16)
[2020-12-16] MEDS: ZINC OXIDE 20% TOPICAL OINTMENT 30 GM TUBE TP SCH (21:52)
[2020-12-17] MEDS: INSULIN (LEVEMIR) 100 UNITS/ML UNITS SQ SCH (06:47)
[2020-12-17] MEDS: INSULIN SLIDING SCALE (NOVOLOG) 1 VIAL SQ SCH ×3 (06:47→17:05)
[2020-12-17 07:25] LABS: BASO % 1.1 % (0-2.0); EOS % 3.9 % (0-4.5); HEMATOCRIT 27.2 % (32.4-45.2); HEMOGLOBIN 8.9 GM/dL (10.7-15.3); LYMPH % 33.5 % (8-40); MCH 28.9 pg (25.7-33.7); MCHC 32.7 g/dl (32.0-36.0); MEAN CELL VOLUME 88.3 fl (80-96); MEAN PLT VOLUME 7.7 fl (7.5-11.1); MONO % 10.2 % (3.8-10.2); NEUT % 51.3 % (42.8-82.8); PLATELET COUNT 431 K/MM3 (134-434); RBC 3.08 M/mm3 (3.60-5.2); WHITE BLOOD COUNT 12.9 K/mm3 (4.0-10.0)
[2020-12-17 07:53] LABS: POTASSIUM 3.9 mmol/L (3.5-5.1)
[2020-12-17 07:55] LABS: BLOOD UREA NITROGEN 19.8 mg/dL (7-18); CALCIUM 9.4 mg/dL (8.5-10.1); MAGNESIUM 1.9 mg/dL (1.8-2.4)
[2020-12-17 07:59] LABS: PHOSPHOROUS 3.2 mg/dL (2.5-4.9)
[2020-12-17 09:17] LABS: POTASSIUM 3.6 mmol/L (3.5-5.1)
[2020-12-17 09:18] LABS: CALCIUM 9.5 mg/dL (8.5-10.1)
[2020-12-17 09:19] LABS: ALBUMIN 2.8 g/dl (3.4-5.0); BLOOD UREA NITROGEN 19.2 mg/dL (7-18); MAGNESIUM 1.9 mg/dL (1.8-2.4)
[2020-12-17] MEDS ORDERED: LORazepam 2 MG TABLET PO ONE (09:20)
[2020-12-17 09:22] LABS: PHOSPHOROUS 3.1 mg/dL (2.5-4.9)
[2020-12-17 09:24] LABS: BILIRUBIN,TOTAL 0.4 mg/dL (0.2-1); TOT PROT 6.5 g/dl (6.4-8.2)
[2020-12-17] MEDS ORDERED: HALOPERIDOL DECANOATE 100 MG/ML IM ONE ×2 (10:30→11:00)
[2020-12-17] MEDS ORDERED: LORazepam 1 MG TABLET GT ONE (10:30)
[2020-12-17] MEDS ORDERED: LORazepam 2 MG TABLET GT ONE (10:30)
[2020-12-17] MEDS ORDERED: DEXTROSE 5%-WATER - 50 ML IVPB ONE (10:40)
[2020-12-17] MEDS ORDERED: cefTRIAXone SODIUM 1 GM VIAL ONE (10:40)
[2020-12-17] MEDS: METOPROLOL TARTRATE 25 MG TABLET (FP) PO SCH ×2 (12:36→21:34)
[2020-12-17] MEDS: SERTRALINE HCL 25 MG TABLET (FP) PO SCH (12:36)
[2020-12-17] MEDS: MULTIVIT-MINERALS ORAL LIQUID PEG SCH (12:36)
[2020-12-17] MEDS: TAMSULOSIN HCL 0.4 MG CAP PO SCH (12:37)
[2020-12-17] MEDS: COLLAGENASE CLOSTRIDIUM HIST. 30 GRAMS TUBE TP SCH (12:37)
[2020-12-17] MEDS: NYSTATIN POWDER 100,000 UNITS/GM - 15 GM TOPICAL POWDER TP SCH ×2 (12:37→21:34)
[2020-12-17] MEDS: THIAMINE HCL 100 MG TABLET (FP) PO SCH ×2 (12:37→21:34)
[2020-12-17] MEDS: ZINC OXIDE 20% TOPICAL OINTMENT 30 GM TUBE TP SCH ×2 (12:37→21:35)
[2020-12-17] MEDS: TIMOLOL 0.5% OPHTHALMIC SOL 5 ML BOTTLE OU SCH (12:41)
[2020-12-17] MEDS: FAMOTIDINE 20 MG/50 ML IVPB 20 MG/50 ML MG IVPB SCH ×2 (13:11→21:45)
[2020-12-17] MEDS: CEFTRIAXONE 1 GM in DEXTROSE 5%-WATER - 50 ML IVPB SCH (13:12)
[2020-12-17] MEDS: LATANOPROST 0.005% OPHTH SOLN 2.5ML BOTTLE OU SCH (21:34)
[2020-12-17] MEDS: LACTOBACILLUS ACIDOPHILUS 1 TABLET PO SCH (21:34)
[2020-12-18] MEDS: INSULIN (LEVEMIR) 100 UNITS/ML UNITS SQ SCH (06:15)
[2020-12-18] MEDS: INSULIN SLIDING SCALE (NOVOLOG) 1 VIAL SQ SCH ×3 (06:16→16:48)
[2020-12-18 06:56] LABS: BASO % 1.3 % (0-2.0); EOS % 5.3 % (0-4.5); HEMATOCRIT 25.4 % (32.4-45.2); HEMOGLOBIN 8.4 GM/dL (10.7-15.3); LYMPH % 30.4 % (8-40); MCHC 32.9 g/dl (32.0-36.0); MEAN CELL VOLUME 88.2 fl (80-96); MEAN PLT VOLUME 7.9 fl (7.5-11.1); MONO % 10.9 % (3.8-10.2); NEUT % 52.1 % (42.8-82.8); PLATELET COUNT 392 K/MM3 (134-434); RBC 2.89 M/mm3 (3.60-5.2)
[2020-12-18] MEDS: TAMSULOSIN HCL 0.4 MG CAP PO SCH (08:28)
[2020-12-18] MEDS: MULTIVIT-MINERALS ORAL LIQUID PEG SCH (10:50)
[2020-12-18] MEDS: THIAMINE HCL 100 MG TABLET (FP) PO SCH ×2 (10:50→21:10)
[2020-12-18] MEDS: METOPROLOL TARTRATE 25 MG TABLET (FP) PO SCH ×2 (10:50→21:10)
[2020-12-18] MEDS: NYSTATIN POWDER 100,000 UNITS/GM - 15 GM TOPICAL POWDER TP SCH ×2 (10:50→21:10)
[2020-12-18] MEDS: SERTRALINE HCL 25 MG TABLET (FP) PO SCH (10:50)
[2020-12-18] MEDS: ZINC OXIDE 20% TOPICAL OINTMENT 30 GM TUBE TP SCH ×2 (10:51→21:11)
[2020-12-18] MEDS: FAMOTIDINE 40 MG/5 ML ORAL SUSPENSION PEG SCH ×2 (10:51→21:10)
[2020-12-18] MEDS: TIMOLOL 0.5% OPHTHALMIC SOL 5 ML BOTTLE OU SCH (10:51)
[2020-12-18] MEDS: COLLAGENASE CLOSTRIDIUM HIST. 30 GRAMS TUBE TP SCH (10:51)
[2020-12-18] MEDS ORDERED: PT OWN MED DRAWER 7, Y5N ONE ×2 (11:01→21:09)
[2020-12-18 13:26] LABS: CALCIUM 9.3 mg/dL (8.5-10.1)
[2020-12-18 13:27] LABS: ALBUMIN 2.7 g/dl (3.4-5.0); BLOOD UREA NITROGEN 19.6 mg/dL (7-18); MAGNESIUM 2.1 mg/dL (1.8-2.4)
[2020-12-18 13:30] LABS: CREATININE 0.9 mg/dL (0.55-1.3); PHOSPHOROUS 4.2 mg/dL (2.5-4.9)
[2020-12-18 13:31] LABS: BILIRUBIN,TOTAL 0.3 mg/dL (0.2-1)
[2020-12-18 13:32] LABS: TOT PROT 6.2 g/dl (6.4-8.2)
[2020-12-18] MEDS: LACTOBACILLUS ACIDOPHILUS 1 TABLET PO SCH (21:10)
[2020-12-18] MEDS: LATANOPROST 0.005% OPHTH SOLN 2.5ML BOTTLE OU SCH (21:11)
[2020-12-19] MEDS: INSULIN SLIDING SCALE (NOVOLOG) 1 VIAL SQ SCH ×3 (06:44→16:38)
[2020-12-19] MEDS: INSULIN (LEVEMIR) 100 UNITS/ML UNITS SQ SCH (06:44)
[2020-12-19 10:03] LABS: HEMATOCRIT 25.4 % (32.4-45.2); HEMOGLOBIN 8.2 GM/dL (10.7-15.3); MCH 28.9 pg (25.7-33.7); MCHC 32.4 g/dl (32.0-36.0); MEAN CELL VOLUME 89.2 fl (80-96); PLATELET COUNT 361 K/MM3 (134-434); RBC 2.85 M/mm3 (3.60-5.2); RDW 17.2 % (11.6-15.6)
[2020-12-19 10:22] LABS: POTASSIUM 3.9 mmol/L (3.5-5.1)
[2020-12-19 10:27] LABS: BLOOD UREA NITROGEN 20.1 mg/dL (7-18); CALCIUM 8.9 mg/dL (8.5-10.1)
[2020-12-19 10:30] LABS: CREATININE 0.8 mg/dL (0.55-1.3); PHOSPHOROUS 4.3 mg/dL (2.5-4.9)
[2020-12-19] MEDS: TAMSULOSIN HCL 0.4 MG CAP PO SCH (10:53)
[2020-12-19] MEDS: MULTIVIT-MINERALS ORAL LIQUID PEG SCH (10:53)
[2020-12-19] MEDS: TIMOLOL 0.5% OPHTHALMIC SOL 5 ML BOTTLE OU SCH (10:54)
[2020-12-19] MEDS: FAMOTIDINE 40 MG/5 ML ORAL SUSPENSION PEG SCH ×3 (10:54→23:13)
[2020-12-19] MEDS: SERTRALINE HCL 25 MG TABLET (FP) PO SCH (10:54)
[2020-12-19] MEDS: THIAMINE HCL 100 MG TABLET (FP) PO SCH ×3 (10:54→23:13)
[2020-12-19] MEDS: METOPROLOL TARTRATE 25 MG TABLET (FP) PO SCH ×3 (10:54→23:13)
[2020-12-19] MEDS: COLLAGENASE CLOSTRIDIUM HIST. 30 GRAMS TUBE TP SCH (10:55)
[2020-12-19] MEDS: ZINC OXIDE 20% TOPICAL OINTMENT 30 GM TUBE TP SCH ×2 (10:55→23:03)
[2020-12-19] MEDS: NYSTATIN POWDER 100,000 UNITS/GM - 15 GM TOPICAL POWDER TP SCH ×2 (10:55→23:02)
[2020-12-19] MEDS ORDERED: PT OWN MED DRAWER 7, Y5N ONE (23:01)
[2020-12-19] MEDS: LACTOBACILLUS ACIDOPHILUS 1 TABLET PO SCH ×2 (23:02→23:13)
[2020-12-19] MEDS: LATANOPROST 0.005% OPHTH SOLN 2.5ML BOTTLE OU SCH (23:03)
[2020-12-20] MEDS: INSULIN SLIDING SCALE (NOVOLOG) 1 VIAL SQ SCH ×3 (06:03→18:31)
[2020-12-20] MEDS: INSULIN (LEVEMIR) 100 UNITS/ML UNITS SQ SCH (06:03)
[2020-12-20 08:45] LABS: HEMATOCRIT 25.8 % (32.4-45.2); HEMOGLOBIN 8.5 GM/dL (10.7-15.3); LYMPH % 31.2 % (8-40); MCHC 33.1 g/dl (32.0-36.0); MEAN CELL VOLUME 87.6 fl (80-96); MEAN PLT VOLUME 7.8 fl (7.5-11.1); NEUT % 54.3 % (42.8-82.8); PLATELET COUNT 363 K/MM3 (134-434); RBC 2.94 M/mm3 (3.60-5.2); WHITE BLOOD COUNT 8.5 K/mm3 (4.0-10.0)
[2020-12-20 08:46] LABS: BASO % 0.7 % (0-2.0); MONO % 8.8 % (3.8-10.2)
[2020-12-20] MEDS: TAMSULOSIN HCL 0.4 MG CAP PO SCH (08:55)
[2020-12-20 09:01] LABS: POTASSIUM 3.9 mmol/L (3.5-5.1)
[2020-12-20 09:10] LABS: ALBUMIN 2.5 g/dl (3.4-5.0); BLOOD UREA NITROGEN 17.6 mg/dL (7-18); CALCIUM 9.2 mg/dL (8.5-10.1)
[2020-12-20 09:15] LABS: CREATININE 0.7 mg/dL (0.55-1.3)
[2020-12-20 09:18] LABS: BILIRUBIN,TOTAL 0.6 mg/dL (0.2-1); TOT PROT 5.7 g/dl (6.4-8.2)
[2020-12-20] MEDS: SERTRALINE HCL 25 MG TABLET (FP) PO SCH (10:15)
[2020-12-20] MEDS: THIAMINE HCL 100 MG TABLET (FP) PO SCH ×3 (10:15→23:15)
[2020-12-20] MEDS: METOPROLOL TARTRATE 25 MG TABLET (FP) PO SCH ×3 (10:15→23:15)
[2020-12-20] MEDS: COLLAGENASE CLOSTRIDIUM HIST. 30 GRAMS TUBE TP SCH (10:16)
[2020-12-20] MEDS: MULTIVIT-MINERALS ORAL LIQUID PEG SCH (10:17)
[2020-12-20] MEDS: NYSTATIN POWDER 100,000 UNITS/GM - 15 GM TOPICAL POWDER TP SCH ×2 (10:17→23:14)
[2020-12-20] MEDS: ZINC OXIDE 20% TOPICAL OINTMENT 30 GM TUBE TP SCH ×2 (10:18→23:14)
[2020-12-20] MEDS: FAMOTIDINE 40 MG/5 ML ORAL SUSPENSION PEG SCH ×3 (10:18→23:15)
[2020-12-20] MEDS: TIMOLOL 0.5% OPHTHALMIC SOL 5 ML BOTTLE OU SCH (10:18)
[2020-12-20] MEDS ORDERED: PT OWN MED DRAWER 7, Y5N ONE (22:33)
[2020-12-20] MEDS: LACTOBACILLUS ACIDOPHILUS 1 TABLET PO SCH (22:33)
[2020-12-20] MEDS: LATANOPROST 0.005% OPHTH SOLN 2.5ML BOTTLE OU SCH (23:14)
[2020-12-21] MEDS: INSULIN (LEVEMIR) 100 UNITS/ML UNITS SQ SCH (06:22)
[2020-12-21] MEDS: INSULIN SLIDING SCALE (NOVOLOG) 1 VIAL SQ SCH ×3 (06:22→17:36)
[2020-12-21 07:48] LABS: HEMATOCRIT 28.2 % (32.4-45.2); HEMOGLOBIN 9.1 GM/dL (10.7-15.3); MCH 28.3 pg (25.7-33.7); MCHC 32.1 g/dl (32.0-36.0); MEAN CELL VOLUME 88.2 fl (80-96); MEAN PLT VOLUME 8.1 fl (7.5-11.1); PLATELET COUNT 408 K/MM3 (134-434); RDW 17.2 % (11.6-15.6); WHITE BLOOD COUNT 11.3 K/mm3 (4.0-10.0)
[2020-12-21 08:03] LABS: CALCIUM 9.3 mg/dL (8.5-10.1)
[2020-12-21 08:04] LABS: BLOOD UREA NITROGEN 17.6 mg/dL (7-18)
[2020-12-21 08:06] LABS: CREATININE 0.8 mg/dL (0.55-1.3)
[2020-12-21] MEDS: TAMSULOSIN HCL 0.4 MG CAP PO SCH (08:30)
[2020-12-21] MEDS: NYSTATIN POWDER 100,000 UNITS/GM - 15 GM TOPICAL POWDER TP SCH (09:05)
[2020-12-21] MEDS: ZINC OXIDE 20% TOPICAL OINTMENT 30 GM TUBE TP SCH (09:05)
[2020-12-21] MEDS: COLLAGENASE CLOSTRIDIUM HIST. 30 GRAMS TUBE TP SCH (09:05)
[2020-12-21] MEDS: THIAMINE HCL 100 MG TABLET (FP) PO SCH (10:00)
[2020-12-21] MEDS: TIMOLOL 0.5% OPHTHALMIC SOL 5 ML BOTTLE OU SCH (10:00)
[2020-12-21] MEDS: SERTRALINE HCL 25 MG TABLET (FP) PO SCH (10:00)
[2020-12-21] MEDS: METOPROLOL TARTRATE 25 MG TABLET (FP) PO SCH (10:00)
[2020-12-21] MEDS: MULTIVIT-MINERALS ORAL LIQUID PEG SCH (10:00)
[2020-12-21] MEDS: FAMOTIDINE 40 MG/5 ML ORAL SUSPENSION PEG SCH (10:00)
[2020-12-21] MEDS ORDERED: HALOPERIDOL 1 MG TABLET PO ONE (11:30)
[2020-12-21] MEDS: HALOPERIDOL 0.5 MG TABLET PO ONE ×2 (17:36→22:16)
[2020-12-21] MEDS ORDERED: HALOPERIDOL LACTATE 5 MG/ML IM ONE (20:55)
[2020-12-21] MEDS: LATANOPROST 0.005% OPHTH SOLN 2.5ML BOTTLE OU SCH (22:17)
[2020-12-21] MEDS ORDERED: PT OWN MED DRAWER 7, Y5N ONE (23:51)
[2020-12-22] MEDS: THIAMINE HCL 100 MG TABLET (FP) PO SCH ×3 (00:06→21:11)
[2020-12-22] MEDS: METOPROLOL TARTRATE 25 MG TABLET (FP) PO SCH ×3 (00:06→21:11)
[2020-12-22] MEDS: LACTOBACILLUS ACIDOPHILUS 1 TABLET PO SCH ×2 (00:06→21:11)
[2020-12-22] MEDS: POLYETHYLENE GLYCOL 3350 119 GM BTL PO SCH ×5 (00:09→21:12)
[2020-12-22] MEDS: ZINC OXIDE 20% TOPICAL OINTMENT 30 GM TUBE TP SCH ×3 (00:21→21:12)
[2020-12-22] MEDS: FAMOTIDINE 40 MG/5 ML ORAL SUSPENSION PEG SCH ×3 (00:22→21:11)
[2020-12-22] MEDS: NYSTATIN POWDER 100,000 UNITS/GM - 15 GM TOPICAL POWDER TP SCH ×3 (00:22→21:12)
[2020-12-22] MEDS: INSULIN SLIDING SCALE (NOVOLOG) 1 VIAL SQ SCH ×3 (06:03→17:49)
[2020-12-22] MEDS: INSULIN (LEVEMIR) 100 UNITS/ML UNITS SQ SCH (06:04)
[2020-12-22] MEDS ORDERED: PT OWN MED DRAWER 7, Y5N ONE ×3 (08:52→21:07)
[2020-12-22] MEDS: TIMOLOL 0.5% OPHTHALMIC SOL 5 ML BOTTLE OU SCH (11:50)
[2020-12-22] MEDS: SERTRALINE HCL 25 MG TABLET (FP) PO SCH (12:02)
[2020-12-22] MEDS: MULTIVIT-MINERALS ORAL LIQUID PEG SCH (12:02)
[2020-12-22] MEDS: TAMSULOSIN HCL 0.4 MG CAP PO SCH (12:02)
[2020-12-22] MEDS: COLLAGENASE CLOSTRIDIUM HIST. 30 GRAMS TUBE TP SCH (12:03)
[2020-12-22] MEDS: SENNOSIDES 8.6MG TABLET (FP) PO SCH ×3 (14:36→21:11)
[2020-12-22] MEDS: LATANOPROST 0.005% OPHTH SOLN 2.5ML BOTTLE OU SCH (21:12)
[2020-12-23] MEDS: POLYETHYLENE GLYCOL 3350 119 GM BTL PO SCH ×3 (05:59→22:25)
[2020-12-23] MEDS: INSULIN SLIDING SCALE (NOVOLOG) 1 VIAL SQ SCH ×3 (06:07→17:31)
[2020-12-23] MEDS: INSULIN (LEVEMIR) 100 UNITS/ML UNITS SQ SCH (06:08)
[2020-12-23] MEDS ORDERED: PT OWN MED DRAWER 7, Y5N ONE ×4 (07:39→22:17)
[2020-12-23] MEDS: TAMSULOSIN HCL 0.4 MG CAP PO SCH (09:48)
[2020-12-23] MEDS: SERTRALINE HCL 25 MG TABLET (FP) PO SCH (10:40)
[2020-12-23] MEDS: THIAMINE HCL 100 MG TABLET (FP) PO SCH ×2 (10:40→22:22)
[2020-12-23] MEDS: SENNOSIDES 8.6MG TABLET (FP) PO SCH ×2 (10:40→22:22)
[2020-12-23] MEDS: METOPROLOL TARTRATE 25 MG TABLET (FP) PO SCH ×2 (10:40→22:22)
[2020-12-23] MEDS: NYSTATIN POWDER 100,000 UNITS/GM - 15 GM TOPICAL POWDER TP SCH ×2 (10:41→22:26)
[2020-12-23] MEDS: TIMOLOL 0.5% OPHTHALMIC SOL 5 ML BOTTLE OU SCH (10:41)
[2020-12-23] MEDS: ZINC OXIDE 20% TOPICAL OINTMENT 30 GM TUBE TP SCH ×2 (10:42→22:23)
[2020-12-23] MEDS: FAMOTIDINE 40 MG/5 ML ORAL SUSPENSION PEG SCH ×2 (11:47→22:23)
[2020-12-23] MEDS: MULTIVIT-MINERALS ORAL LIQUID PEG SCH (11:47)
[2020-12-23] MEDS: COLLAGENASE CLOSTRIDIUM HIST. 30 GRAMS TUBE TP SCH (12:26)
[2020-12-23] MEDS: LACTOBACILLUS ACIDOPHILUS 1 TABLET PO SCH (22:22)
[2020-12-23] MEDS: LATANOPROST 0.005% OPHTH SOLN 2.5ML BOTTLE OU SCH (22:23)
[2020-12-24] MEDS: POLYETHYLENE GLYCOL 3350 119 GM BTL PO SCH ×3 (06:20→22:15)
[2020-12-24] MEDS: INSULIN SLIDING SCALE (NOVOLOG) 1 VIAL SQ SCH ×3 (06:21→17:16)
[2020-12-24] MEDS: INSULIN (LEVEMIR) 100 UNITS/ML UNITS SQ SCH (06:21)
[2020-12-24] MEDS ORDERED: PT OWN MED DRAWER 7, Y5N ONE ×3 (10:05→22:13)
[2020-12-24] MEDS: SENNOSIDES 8.6MG TABLET (FP) PO SCH ×2 (10:10→22:15)
[2020-12-24] MEDS: SERTRALINE HCL 25 MG TABLET (FP) PO SCH (10:10)
[2020-12-24] MEDS: THIAMINE HCL 100 MG TABLET (FP) PO SCH ×2 (10:11→22:15)
[2020-12-24] MEDS: METOPROLOL TARTRATE 25 MG TABLET (FP) PO SCH ×2 (10:11→22:15)
[2020-12-24] MEDS: TAMSULOSIN HCL 0.4 MG CAP PO SCH (10:11)
[2020-12-24] MEDS: MULTIVIT-MINERALS ORAL LIQUID PEG SCH (10:12)
[2020-12-24] MEDS: NYSTATIN POWDER 100,000 UNITS/GM - 15 GM TOPICAL POWDER TP SCH ×2 (10:14→22:26)
[2020-12-24] MEDS: ZINC OXIDE 20% TOPICAL OINTMENT 30 GM TUBE TP SCH ×2 (10:15→22:26)
[2020-12-24] MEDS: TIMOLOL 0.5% OPHTHALMIC SOL 5 ML BOTTLE OU SCH (10:15)
[2020-12-24] MEDS: COLLAGENASE CLOSTRIDIUM HIST. 30 GRAMS TUBE TP SCH (10:32)
[2020-12-24] MEDS: FAMOTIDINE 40 MG/5 ML ORAL SUSPENSION PEG SCH ×2 (12:30→22:16)
[2020-12-24] MEDS: LACTOBACILLUS ACIDOPHILUS 1 TABLET PO SCH (22:15)
[2020-12-24] MEDS: LATANOPROST 0.005% OPHTH SOLN 2.5ML BOTTLE OU SCH (22:26)
[2020-12-25] MEDS: INSULIN SLIDING SCALE (NOVOLOG) 1 VIAL SQ SCH ×3 (06:30→16:30)
[2020-12-25] MEDS: INSULIN (LEVEMIR) 100 UNITS/ML UNITS SQ SCH (06:30)
[2020-12-25] MEDS: POLYETHYLENE GLYCOL 3350 119 GM BTL PO SCH ×2 (06:31→13:01)
[2020-12-25] MEDS ORDERED: PT OWN MED DRAWER 7, Y5N ONE ×2 (09:09→21:53)
[2020-12-25] MEDS: TAMSULOSIN HCL 0.4 MG CAP PO SCH (09:33)
[2020-12-25] MEDS: SENNOSIDES 8.6MG TABLET (FP) PO SCH (09:34)
[2020-12-25] MEDS: MULTIVIT-MINERALS ORAL LIQUID PEG SCH (09:34)
[2020-12-25] MEDS: METOPROLOL TARTRATE 25 MG TABLET (FP) PO SCH (09:34)
[2020-12-25] MEDS: NYSTATIN POWDER 100,000 UNITS/GM - 15 GM TOPICAL POWDER TP SCH (09:34)
[2020-12-25] MEDS: FAMOTIDINE 40 MG/5 ML ORAL SUSPENSION PEG SCH (09:34)
[2020-12-25] MEDS: SERTRALINE HCL 25 MG TABLET (FP) PO SCH (09:35)
[2020-12-25] MEDS: TIMOLOL 0.5% OPHTHALMIC SOL 5 ML BOTTLE OU SCH (09:35)
[2020-12-25] MEDS: ZINC OXIDE 20% TOPICAL OINTMENT 30 GM TUBE TP SCH (09:36)
[2020-12-25] MEDS: THIAMINE HCL 100 MG TABLET (FP) PO SCH (09:36)
[2020-12-25] MEDS: COLLAGENASE CLOSTRIDIUM HIST. 30 GRAMS TUBE TP SCH (10:44)
[2020-12-25 12:11] LABS: BASO % 0.5 % (0-2.0); EOS % 4.7 % (0-4.5); LYMPH % 27.9 % (8-40); MCH 28.2 pg (25.7-33.7); MCHC 31.1 g/dl (32.0-36.0); MEAN CELL VOLUME 90.8 fl (80-96); MONO % 10.1 % (3.8-10.2); NEUT % 56.8 % (42.8-82.8); PLATELET COUNT 332 K/MM3 (134-434); RBC 2.43 M/mm3 (3.60-5.2); RDW 17.5 % (11.6-15.6); WHITE BLOOD COUNT 10.9 K/mm3 (4.0-10.0)
[2020-12-25 12:14] LABS: HEMOGLOBIN 6.9 GM/dL (10.7-15.3)
[2020-12-25] MEDS: PANTOPRAZOLE SODIUM 40 MG VIAL IVPUSH SCH (13:01)
[2020-12-25 14:43] LABS: POTASSIUM 4.2 mmol/L (3.5-5.1)
[2020-12-25 14:45] LABS: ALBUMIN 2.6 g/dl (3.4-5.0); CALCIUM 9.2 mg/dL (8.5-10.1)
[2020-12-25 14:49] LABS: CREATININE 0.8 mg/dL (0.55-1.3)
[2020-12-25 14:50] LABS: BILIRUBIN,TOTAL 0.3 mg/dL (0.2-1); TOT PROT 5.7 g/dl (6.4-8.2)
[2020-12-25] MEDS ORDERED: FUROSEMIDE 40 MG/4 ML INJECTABLE VIAL IVPUSH ONE (17:39)
[2020-12-26] MEDS: LACTOBACILLUS ACIDOPHILUS 1 TABLET PO SCH ×2 (00:15→21:29)
[2020-12-26] MEDS: METOPROLOL TARTRATE 25 MG TABLET (FP) PO SCH ×3 (00:15→21:29)
[2020-12-26] MEDS: THIAMINE HCL 100 MG TABLET (FP) PO SCH ×3 (00:16→21:30)
[2020-12-26] MEDS: POLYETHYLENE GLYCOL 3350 119 GM BTL PO SCH ×4 (00:16→21:29)
[2020-12-26] MEDS: PANTOPRAZOLE SODIUM 40 MG VIAL IVPUSH SCH ×3 (00:16→21:30)
[2020-12-26] MEDS: SENNOSIDES 8.6MG TABLET (FP) PO SCH ×3 (00:16→21:30)
[2020-12-26] MEDS: FAMOTIDINE 40 MG/5 ML ORAL SUSPENSION PEG SCH ×3 (00:16→21:30)
[2020-12-26] MEDS: NYSTATIN POWDER 100,000 UNITS/GM - 15 GM TOPICAL POWDER TP SCH ×3 (00:16→21:29)
[2020-12-26] MEDS: LATANOPROST 0.005% OPHTH SOLN 2.5ML BOTTLE OU SCH ×2 (00:17→21:30)
[2020-12-26] MEDS: ZINC OXIDE 20% TOPICAL OINTMENT 30 GM TUBE TP SCH ×3 (00:17→21:30)
[2020-12-26] MEDS: INSULIN (LEVEMIR) 100 UNITS/ML UNITS SQ SCH (06:27)
[2020-12-26] MEDS: INSULIN SLIDING SCALE (NOVOLOG) 1 VIAL SQ SCH ×3 (06:27→16:45)
[2020-12-26 07:46] LABS: BASO % 1.1 % (0-2.0); HEMATOCRIT 24.1 % (32.4-45.2); HEMOGLOBIN 8.2 GM/dL (10.7-15.3); LYMPH % 25.6 % (8-40); MCH 29.9 pg (25.7-33.7); MCHC 33.8 g/dl (32.0-36.0); MEAN CELL VOLUME 88.4 fl (80-96); MONO % 11.3 % (3.8-10.2); PLATELET COUNT 319 K/MM3 (134-434); RBC 2.73 M/mm3 (3.60-5.2); RDW 16.5 % (11.6-15.6); WHITE BLOOD COUNT 8.9 K/mm3 (4.0-10.0)
[2020-12-26 07:58] LABS: POTASSIUM 4.1 mmol/L (3.5-5.1)
[2020-12-26 08:17] LABS: CALCIUM 9.2 mg/dL (8.5-10.1)
[2020-12-26 08:18] LABS: ALBUMIN 2.7 g/dl (3.4-5.0); BLOOD UREA NITROGEN 19.3 mg/dL (7-18); MAGNESIUM 2.2 mg/dL (1.8-2.4)
[2020-12-26 08:21] LABS: CREATININE 0.8 mg/dL (0.55-1.3); PHOSPHOROUS 4.4 mg/dL (2.5-4.9)
[2020-12-26 08:22] LABS: BILIRUBIN,TOTAL 0.5 mg/dL (0.2-1)
[2020-12-26 08:23] LABS: TOT PROT 5.7 g/dl (6.4-8.2)
[2020-12-26] MEDS: SERTRALINE HCL 25 MG TABLET (FP) PO SCH (11:33)
[2020-12-26] MEDS: MULTIVIT-MINERALS ORAL LIQUID PEG SCH (11:34)
[2020-12-26] MEDS: COLLAGENASE CLOSTRIDIUM HIST. 30 GRAMS TUBE TP SCH (11:34)
[2020-12-26] MEDS: TAMSULOSIN HCL 0.4 MG CAP PO SCH (11:34)
[2020-12-26] MEDS: TIMOLOL 0.5% OPHTHALMIC SOL 5 ML BOTTLE OU SCH (11:35)
[2020-12-26 12:29] LABS: BASO % 1.3 % (0-2.0); EOS % 6.3 % (0-4.5); HEMATOCRIT 23.5 % (32.4-45.2); HEMOGLOBIN 7.6 GM/dL (10.7-15.3); LYMPH % 29.7 % (8-40); MCH 29.3 pg (25.7-33.7); MCHC 32.5 g/dl (32.0-36.0); MEAN PLT VOLUME 8.3 fl (7.5-11.1); MONO % 11.9 % (3.8-10.2); NEUT % 50.8 % (42.8-82.8); PLATELET COUNT 345 K/MM3 (134-434); RBC 2.61 M/mm3 (3.60-5.2); RDW 16.7 % (11.6-15.6); WHITE BLOOD COUNT 8.2 K/mm3 (4.0-10.0)
[2020-12-26 12:49] LABS: POTASSIUM 4.9 mmol/L (3.5-5.1)
[2020-12-26 12:51] LABS: ALBUMIN 2.7 g/dl (3.4-5.0); CALCIUM 8.7 mg/dL (8.5-10.1)
[2020-12-26 12:52] LABS: BLOOD UREA NITROGEN 18.1 mg/dL (7-18)
[2020-12-26 12:55] LABS: CREATININE 0.8 mg/dL (0.55-1.3)
[2020-12-26 12:56] LABS: BILIRUBIN,TOTAL 0.8 mg/dL (0.2-1); TOT PROT 5.7 g/dl (6.4-8.2)
[2020-12-26] MEDS ORDERED: FUROSEMIDE 40 MG/4 ML INJECTABLE VIAL IVPUSH ONE (18:15)
[2020-12-26] MEDS ORDERED: DEXTROSE 5%-WATER - 1,000 ML IV SCH ×2 (19:15→19:20)
[2020-12-26 21:51] LABS: BASO % 0.2 % (0-2.0); EOS % 6.3 % (0-4.5); HEMATOCRIT 25.8 % (32.4-45.2); HEMOGLOBIN 8.4 GM/dL (10.7-15.3); LYMPH % 32.6 % (8-40); MCH 28.3 pg (25.7-33.7); MCHC 32.5 g/dl (32.0-36.0); MONO % 12.9 % (3.8-10.2); PLATELET COUNT 322 K/MM3 (134-434); RBC 2.97 M/mm3 (3.60-5.2); RDW 18.1 % (11.6-15.6); WHITE BLOOD COUNT 8.8 K/mm3 (4.0-10.0)
[2020-12-27] MEDS: POLYETHYLENE GLYCOL 3350 119 GM BTL PO SCH (06:01)
[2020-12-27] MEDS: INSULIN (LEVEMIR) 100 UNITS/ML UNITS SQ SCH (06:01)
[2020-12-27] MEDS: INSULIN SLIDING SCALE (NOVOLOG) 1 VIAL SQ SCH ×3 (06:02→17:22)
[2020-12-27 07:17] LABS: HEMATOCRIT 27.1 % (32.4-45.2); HEMOGLOBIN 9.3 GM/dL (10.7-15.3); MCH 29.5 pg (25.7-33.7); MCHC 34.3 g/dl (32.0-36.0); MEAN CELL VOLUME 86.1 fl (80-96); MEAN PLT VOLUME 7.9 fl (7.5-11.1); PLATELET COUNT 333 K/MM3 (134-434); RBC 3.15 M/mm3 (3.60-5.2); RDW 18.1 % (11.6-15.6); WHITE BLOOD COUNT 7.9 K/mm3 (4.0-10.0)
[2020-12-27 07:28] LABS: CALCIUM 9.2 mg/dL (8.5-10.1)
[2020-12-27 07:29] LABS: ALBUMIN 2.8 g/dl (3.4-5.0); BLOOD UREA NITROGEN 15.1 mg/dL (7-18)
[2020-12-27 07:32] LABS: CREATININE 0.8 mg/dL (0.55-1.3)
[2020-12-27 07:33] LABS: BILIRUBIN,TOTAL 0.5 mg/dL (0.2-1)
[2020-12-27 07:34] LABS: TOT PROT 5.9 g/dl (6.4-8.2)
[2020-12-27] MEDS: TAMSULOSIN HCL 0.4 MG CAP PO SCH ×2 (08:24→11:34)
[2020-12-27] MEDS: PANTOPRAZOLE SODIUM 40 MG VIAL IVPUSH SCH (10:52)
[2020-12-27] MEDS ORDERED: PT OWN MED DRAWER 7, Y5N ONE ×2 (11:12→23:01)
[2020-12-27] MEDS: MULTIVIT-MINERALS ORAL LIQUID PEG SCH (11:19)
[2020-12-27] MEDS: METOPROLOL TARTRATE 25 MG TABLET (FP) PO SCH (11:19)
[2020-12-27] MEDS: NYSTATIN POWDER 100,000 UNITS/GM - 15 GM TOPICAL POWDER TP SCH ×2 (11:19→23:04)
[2020-12-27] MEDS: FAMOTIDINE 40 MG/5 ML ORAL SUSPENSION PEG SCH ×2 (11:19→23:05)
[2020-12-27] MEDS: COLLAGENASE CLOSTRIDIUM HIST. 30 GRAMS TUBE TP SCH (11:20)
[2020-12-27] MEDS: SENNOSIDES 8.6MG TABLET (FP) PO SCH ×2 (11:20→23:03)
[2020-12-27] MEDS: THIAMINE HCL 100 MG TABLET (FP) PO SCH ×2 (11:20→23:04)
[2020-12-27] MEDS: ZINC OXIDE 20% TOPICAL OINTMENT 30 GM TUBE TP SCH ×2 (11:21→23:05)
[2020-12-27] MEDS: SERTRALINE HCL 25 MG TABLET (FP) PO SCH (11:21)
[2020-12-27] MEDS: TIMOLOL 0.5% OPHTHALMIC SOL 5 ML BOTTLE OU SCH (11:21)
[2020-12-27] MEDS ORDERED: FAMOTIDINE 40 MG/5 ML ORAL SUSPENSION PEG SCH ×2 (12:31→22:00)
[2020-12-27] MEDS: LATANOPROST 0.005% OPHTH SOLN 2.5ML BOTTLE OU SCH (23:04)
[2020-12-27] MEDS: METOPROLOL TARTRATE 25 MG TABLET (FP) GT SCH (23:04)
[2020-12-27] MEDS: LACTOBACILLUS ACIDOPHILUS 1 TABLET GT SCH (23:05)
[2020-12-28] MEDS: INSULIN SLIDING SCALE (NOVOLOG) 1 VIAL SQ SCH ×3 (06:35→17:05)
[2020-12-28] MEDS: INSULIN (LEVEMIR) 100 UNITS/ML UNITS SQ SCH (06:35)
[2020-12-28 06:58] LABS: BASO % 1.5 % (0-2.0); HEMATOCRIT 27.7 % (32.4-45.2); HEMOGLOBIN 9.1 GM/dL (10.7-15.3); LYMPH % 33.3 % (8-40); MCH 28.8 pg (25.7-33.7); MEAN CELL VOLUME 87.4 fl (80-96); MEAN PLT VOLUME 8.4 fl (7.5-11.1); NEUT % 48.2 % (42.8-82.8); PLATELET COUNT 337 K/MM3 (134-434); RBC 3.17 M/mm3 (3.60-5.2); RDW 17.9 % (11.6-15.6); WHITE BLOOD COUNT 8.9 K/mm3 (4.0-10.0)
[2020-12-28] MEDS: ZINC OXIDE 20% TOPICAL OINTMENT 30 GM TUBE TP SCH ×2 (08:30→21:52)
[2020-12-28] MEDS: NYSTATIN POWDER 100,000 UNITS/GM - 15 GM TOPICAL POWDER TP SCH ×2 (08:30→21:52)
[2020-12-28] MEDS ORDERED: PT OWN MED DRAWER 7, Y5N ONE ×2 (08:32→12:10)
[2020-12-28] MEDS: TAMSULOSIN HCL 0.4 MG CAP PO SCH (09:16)
[2020-12-28] MEDS: MULTIVIT-MINERALS ORAL LIQUID PEG SCH (09:21)
[2020-12-28] MEDS: TIMOLOL 0.5% OPHTHALMIC SOL 5 ML BOTTLE OU SCH (09:21)
[2020-12-28] MEDS: THIAMINE HCL 100 MG TABLET (FP) PO SCH ×2 (09:28→21:01)
[2020-12-28] MEDS: SENNOSIDES 8.6MG TABLET (FP) PO SCH ×2 (09:28→21:01)
[2020-12-28] MEDS: SERTRALINE HCL 25 MG TABLET (FP) PO SCH (09:28)
[2020-12-28] MEDS: FAMOTIDINE 40 MG/5 ML ORAL SUSPENSION PEG SCH ×2 (09:28→21:01)
[2020-12-28] MEDS: METOPROLOL TARTRATE 25 MG TABLET (FP) GT SCH ×2 (09:29→21:01)
[2020-12-28] MEDS: POLYETHYLENE GLYCOL 3350 119 GM BTL PEG SCH (09:29)
[2020-12-28] MEDS: COLLAGENASE CLOSTRIDIUM HIST. 30 GRAMS TUBE TP SCH (11:07)
[2020-12-28] MEDS: LATANOPROST 0.005% OPHTH SOLN 2.5ML BOTTLE OU SCH (21:01)
[2020-12-28] MEDS: LACTOBACILLUS ACIDOPHILUS 1 TABLET GT SCH (21:01)
[2020-12-29] MEDS: INSULIN (LEVEMIR) 100 UNITS/ML UNITS SQ SCH (06:18)
[2020-12-29] MEDS: INSULIN SLIDING SCALE (NOVOLOG) 1 VIAL SQ SCH ×3 (06:18→17:39)
[2020-12-29] MEDS ORDERED: DEXTROSE 5%-0.45% SALINE 1,000 ML IV SCH (07:00)
[2020-12-29] MEDS ORDERED: PT OWN MED DRAWER 7, Y5N ONE ×3 (08:16→22:49)
[2020-12-29 08:55] LABS: HEMATOCRIT 27.1 % (32.4-45.2); MCH 28.8 pg (25.7-33.7); MCHC 33.1 g/dl (32.0-36.0); MEAN CELL VOLUME 86.9 fl (80-96); MEAN PLT VOLUME 7.7 fl (7.5-11.1); PLATELET COUNT 336 K/MM3 (134-434); RBC 3.12 M/mm3 (3.60-5.2); WHITE BLOOD COUNT 7.1 K/mm3 (4.0-10.0)
[2020-12-29] MEDS: MULTIVIT-MINERALS ORAL LIQUID PEG SCH (09:45)
[2020-12-29] MEDS: TAMSULOSIN HCL 0.4 MG CAP PO SCH (09:45)
[2020-12-29] MEDS: SENNOSIDES 8.6MG TABLET (FP) PO SCH ×2 (09:46→22:54)
[2020-12-29] MEDS: THIAMINE HCL 100 MG TABLET (FP) PO SCH ×2 (09:46→22:54)
[2020-12-29] MEDS: METOPROLOL TARTRATE 25 MG TABLET (FP) GT SCH ×2 (09:46→22:53)
[2020-12-29] MEDS: TIMOLOL 0.5% OPHTHALMIC SOL 5 ML BOTTLE OU SCH (09:46)
[2020-12-29] MEDS: FAMOTIDINE 40 MG/5 ML ORAL SUSPENSION PEG SCH ×2 (09:46→22:54)
[2020-12-29] MEDS: SERTRALINE HCL 25 MG TABLET (FP) PO SCH (09:46)
[2020-12-29] MEDS: POLYETHYLENE GLYCOL 3350 119 GM BTL PEG SCH (09:47)
[2020-12-29 09:52] LABS: BLOOD UREA NITROGEN 11.2 mg/dL (7-18); CALCIUM 8.6 mg/dL (8.5-10.1); MAGNESIUM 1.9 mg/dL (1.8-2.4)
[2020-12-29 09:55] LABS: CREATININE 0.8 mg/dL (0.55-1.3)
[2020-12-29 09:56] LABS: PHOSPHOROUS 4.2 mg/dL (2.5-4.9)
[2020-12-29 11:08] LABS: HEMATOCRIT 27.5 % (32.4-45.2); MCH 28.6 pg (25.7-33.7); MCHC 32.8 g/dl (32.0-36.0); MEAN CELL VOLUME 87.3 fl (80-96); MEAN PLT VOLUME 8.1 fl (7.5-11.1); PLATELET COUNT 343 K/MM3 (134-434); RBC 3.15 M/mm3 (3.60-5.2); RDW 18.2 % (11.6-15.6)
[2020-12-29] MEDS: ZINC OXIDE 20% TOPICAL OINTMENT 30 GM TUBE TP SCH ×2 (11:10→22:58)
[2020-12-29] MEDS: NYSTATIN POWDER 100,000 UNITS/GM - 15 GM TOPICAL POWDER TP SCH ×2 (11:10→22:53)
[2020-12-29] MEDS: LACTOBACILLUS ACIDOPHILUS 1 TABLET GT SCH (22:53)
[2020-12-29] MEDS: LATANOPROST 0.005% OPHTH SOLN 2.5ML BOTTLE OU SCH (22:54)
[2020-12-30] MEDS: INSULIN SLIDING SCALE (NOVOLOG) 1 VIAL SQ SCH ×3 (06:15→17:26)
[2020-12-30] MEDS: INSULIN (LEVEMIR) 100 UNITS/ML UNITS SQ SCH (06:15)
[2020-12-30 07:00] LABS: HEMATOCRIT 27.4 % (32.4-45.2); HEMOGLOBIN 9.1 GM/dL (10.7-15.3); MEAN CELL VOLUME 87.7 fl (80-96); MEAN PLT VOLUME 7.9 fl (7.5-11.1); PLATELET COUNT 338 K/MM3 (134-434); RBC 3.13 M/mm3 (3.60-5.2); RDW 17.6 % (11.6-15.6); WHITE BLOOD COUNT 8.4 K/mm3 (4.0-10.0)
[2020-12-30 07:21] LABS: POTASSIUM 3.9 mmol/L (3.5-5.1)
[2020-12-30 07:31] LABS: CALCIUM 8.9 mg/dL (8.5-10.1)
[2020-12-30 07:32] LABS: BLOOD UREA NITROGEN 10.9 mg/dL (7-18)
[2020-12-30 07:35] LABS: CREATININE 0.9 mg/dL (0.55-1.3)
[2020-12-30] MEDS: TAMSULOSIN HCL 0.4 MG CAP PO SCH (08:40)
[2020-12-30] MEDS ORDERED: PT OWN MED DRAWER 7, Y5N ONE ×2 (11:53→22:16)
[2020-12-30] MEDS: MULTIVIT-MINERALS ORAL LIQUID PEG SCH (11:53)
[2020-12-30] MEDS: SERTRALINE HCL 25 MG TABLET (FP) PO SCH (11:54)
[2020-12-30] MEDS: METOPROLOL TARTRATE 25 MG TABLET (FP) GT SCH ×2 (11:54→22:28)
[2020-12-30] MEDS: SENNOSIDES 8.6MG TABLET (FP) PO SCH ×2 (11:54→22:28)
[2020-12-30] MEDS: NYSTATIN POWDER 100,000 UNITS/GM - 15 GM TOPICAL POWDER TP SCH ×2 (11:54→22:29)
[2020-12-30] MEDS: THIAMINE HCL 100 MG TABLET (FP) PO SCH ×2 (11:54→22:28)
[2020-12-30] MEDS: POLYETHYLENE GLYCOL 3350 119 GM BTL PEG SCH (11:55)
[2020-12-30] MEDS: TIMOLOL 0.5% OPHTHALMIC SOL 5 ML BOTTLE OU SCH (11:55)
[2020-12-30] MEDS: ZINC OXIDE 20% TOPICAL OINTMENT 30 GM TUBE TP SCH ×2 (11:55→22:30)
[2020-12-30] MEDS: FAMOTIDINE 40 MG/5 ML ORAL SUSPENSION PEG SCH ×2 (11:55→22:28)
[2020-12-30] MEDS ORDERED: QUEtiapine FUMARATE 25 MG TABLET PEG ONE (22:00)
[2020-12-30] MEDS: LACTOBACILLUS ACIDOPHILUS 1 TABLET GT SCH (22:27)
[2020-12-30] MEDS: LATANOPROST 0.005% OPHTH SOLN 2.5ML BOTTLE OU SCH (22:29)
[2020-12-31] MEDS ORDERED: QUEtiapine FUMARATE 25 MG TABLET PO ONE (06:00)
[2020-12-31] MEDS: INSULIN SLIDING SCALE (NOVOLOG) 1 VIAL SQ SCH ×3 (06:01→17:04)
[2020-12-31] MEDS: INSULIN (LEVEMIR) 100 UNITS/ML UNITS SQ SCH (06:01)
[2020-12-31 07:05] LABS: HEMATOCRIT 28.4 % (32.4-45.2); HEMOGLOBIN 9.3 GM/dL (10.7-15.3); MCH 28.8 pg (25.7-33.7); MCHC 32.7 g/dl (32.0-36.0); MEAN CELL VOLUME 88.2 fl (80-96); MEAN PLT VOLUME 7.8 fl (7.5-11.1); PLATELET COUNT 311 K/MM3 (134-434); RBC 3.22 M/mm3 (3.60-5.2); RDW 17.5 % (11.6-15.6); WHITE BLOOD COUNT 7.2 K/mm3 (4.0-10.0)
[2020-12-31 07:33] LABS: POTASSIUM 4.2 mmol/L (3.5-5.1)
[2020-12-31 07:37] LABS: CALCIUM 8.6 mg/dL (8.5-10.1)
[2020-12-31 07:38] LABS: BLOOD UREA NITROGEN 10.2 mg/dL (7-18)
[2020-12-31 07:41] LABS: CREATININE 0.8 mg/dL (0.55-1.3)
[2020-12-31] MEDS: TAMSULOSIN HCL 0.4 MG CAP PO SCH (11:55)
[2020-12-31] MEDS: METOPROLOL TARTRATE 25 MG TABLET (FP) GT SCH ×2 (11:55→21:19)
[2020-12-31] MEDS: POLYETHYLENE GLYCOL 3350 119 GM BTL PEG SCH (11:55)
[2020-12-31] MEDS: MULTIVIT-MINERALS ORAL LIQUID PEG SCH (11:55)
[2020-12-31] MEDS: FAMOTIDINE 40 MG/5 ML ORAL SUSPENSION PEG SCH ×2 (11:55→21:19)
[2020-12-31] MEDS: THIAMINE HCL 100 MG TABLET (FP) PO SCH ×2 (11:56→21:19)
[2020-12-31] MEDS: SENNOSIDES 8.6MG TABLET (FP) PO SCH ×2 (11:56→21:20)
[2020-12-31] MEDS: ZINC OXIDE 20% TOPICAL OINTMENT 30 GM TUBE TP SCH ×2 (11:57→21:20)
[2020-12-31] MEDS: NYSTATIN POWDER 100,000 UNITS/GM - 15 GM TOPICAL POWDER TP SCH ×2 (11:57→21:19)
[2020-12-31] MEDS: TIMOLOL 0.5% OPHTHALMIC SOL 5 ML BOTTLE OU SCH (11:57)
[2020-12-31] MEDS: SERTRALINE HCL 25 MG TABLET (FP) PO SCH (11:58)
[2020-12-31] MEDS ORDERED: PT OWN MED DRAWER 7, Y5N ONE (21:05)
[2020-12-31] MEDS: LACTOBACILLUS ACIDOPHILUS 1 TABLET GT SCH (21:20)
[2020-12-31] MEDS: LATANOPROST 0.005% OPHTH SOLN 2.5ML BOTTLE OU SCH (21:20)
[2021-01-01] MEDS: INSULIN SLIDING SCALE (NOVOLOG) 1 VIAL SQ SCH ×3 (06:40→18:09)
[2021-01-01] MEDS: INSULIN (LEVEMIR) 100 UNITS/ML UNITS SQ SCH (06:41)
[2021-01-01] MEDS ORDERED: PT OWN MED DRAWER 7, Y5N ONE ×2 (10:34→21:28)
[2021-01-01] MEDS: THIAMINE HCL 100 MG TABLET (FP) PO SCH ×2 (10:35→21:28)
[2021-01-01] MEDS: TAMSULOSIN HCL 0.4 MG CAP PO SCH (10:35)
[2021-01-01] MEDS: POLYETHYLENE GLYCOL 3350 119 GM BTL PEG SCH (10:36)
[2021-01-01] MEDS: METOPROLOL TARTRATE 25 MG TABLET (FP) GT SCH ×2 (10:36→21:28)
[2021-01-01] MEDS: MULTIVIT-MINERALS ORAL LIQUID PEG SCH (10:36)
[2021-01-01] MEDS: SERTRALINE HCL 25 MG TABLET (FP) PO SCH (10:36)
[2021-01-01] MEDS: NYSTATIN POWDER 100,000 UNITS/GM - 15 GM TOPICAL POWDER TP SCH ×2 (10:37→21:29)
[2021-01-01] MEDS: SENNOSIDES 8.6MG TABLET (FP) PO SCH ×2 (10:37→21:28)
[2021-01-01] MEDS: ZINC OXIDE 20% TOPICAL OINTMENT 30 GM TUBE TP SCH ×2 (10:37→21:28)
[2021-01-01] MEDS: TIMOLOL 0.5% OPHTHALMIC SOL 5 ML BOTTLE OU SCH (10:37)
[2021-01-01] MEDS: FAMOTIDINE 40 MG/5 ML ORAL SUSPENSION PEG SCH ×2 (10:37→21:28)
[2021-01-01 12:30] LABS: BASO % 1.5 % (0-2.0); EOS % 4.8 % (0-4.5); HEMATOCRIT 27.9 % (32.4-45.2); HEMOGLOBIN 9.1 GM/dL (10.7-15.3); LYMPH % 25.2 % (8-40); MCH 28.5 pg (25.7-33.7); MCHC 32.7 g/dl (32.0-36.0); MEAN CELL VOLUME 87.2 fl (80-96); MEAN PLT VOLUME 7.5 fl (7.5-11.1); NEUT % 57.5 % (42.8-82.8); PLATELET COUNT 319 K/MM3 (134-434); RDW 17.5 % (11.6-15.6); WHITE BLOOD COUNT 9.9 K/mm3 (4.0-10.0)
[2021-01-01 12:54] LABS: CALCIUM 9.4 mg/dL (8.5-10.1)
[2021-01-01 12:55] LABS: ALBUMIN 2.7 g/dl (3.4-5.0)
[2021-01-01 12:58] LABS: CREATININE 0.7 mg/dL (0.55-1.3)
[2021-01-01 13:00] LABS: BILIRUBIN,TOTAL 0.5 mg/dL (0.2-1)
[2021-01-01] MEDS: LATANOPROST 0.005% OPHTH SOLN 2.5ML BOTTLE OU SCH (21:28)
[2021-01-01] MEDS: LACTOBACILLUS ACIDOPHILUS 1 TABLET GT SCH (21:29)
[2021-01-02] MEDS: INSULIN (LEVEMIR) 100 UNITS/ML UNITS SQ SCH (06:08)
[2021-01-02] MEDS: INSULIN SLIDING SCALE (NOVOLOG) 1 VIAL SQ SCH ×2 (06:08→11:09)
[2021-01-02 06:49] LABS: HEMATOCRIT 28.4 % (32.4-45.2); HEMOGLOBIN 9.4 GM/dL (10.7-15.3); MCH 28.5 pg (25.7-33.7); MCHC 32.9 g/dl (32.0-36.0); MEAN CELL VOLUME 86.5 fl (80-96); MEAN PLT VOLUME 7.4 fl (7.5-11.1); PLATELET COUNT 315 K/MM3 (134-434); RBC 3.28 M/mm3 (3.60-5.2); RDW 17.3 % (11.6-15.6); WHITE BLOOD COUNT 8.8 K/mm3 (4.0-10.0)
[2021-01-02 07:12] LABS: POTASSIUM 3.9 mmol/L (3.5-5.1)
[2021-01-02 07:13] LABS: BLOOD UREA NITROGEN 11.9 mg/dL (7-18); CALCIUM 9.6 mg/dL (8.5-10.1)
[2021-01-02 07:17] LABS: CREATININE 0.8 mg/dL (0.55-1.3)
[2021-01-02] MEDS: METOPROLOL TARTRATE 25 MG TABLET (FP) GT SCH ×2 (10:41→11:11)
[2021-01-02] MEDS: FAMOTIDINE 40 MG/5 ML ORAL SUSPENSION PEG SCH ×2 (10:41→11:11)
[2021-01-02] MEDS: SENNOSIDES 8.6MG TABLET (FP) PO SCH ×2 (10:42→11:11)
[2021-01-02] MEDS: SERTRALINE HCL 25 MG TABLET (FP) PO SCH (10:42)
[2021-01-02] MEDS: TAMSULOSIN HCL 0.4 MG CAP PO SCH (10:42)
[2021-01-02] MEDS: THIAMINE HCL 100 MG TABLET (FP) PO SCH ×2 (10:42→11:11)
[2021-01-02] MEDS: TIMOLOL 0.5% OPHTHALMIC SOL 5 ML BOTTLE OU SCH (10:43)
[2021-01-02] MEDS: NYSTATIN POWDER 100,000 UNITS/GM - 15 GM TOPICAL POWDER TP SCH (10:43)
[2021-01-02] MEDS: ZINC OXIDE 20% TOPICAL OINTMENT 30 GM TUBE TP SCH (10:43)
[2021-01-02] MEDS: MULTIVIT-MINERALS ORAL LIQUID PEG SCH (10:43)
[2021-01-02] MEDS: POLYETHYLENE GLYCOL 3350 119 GM BTL PEG SCH (10:43)
[2021-01-02 11:16] VITALS: BP 149/82; PULSE 92; TEMP 98.7
== END 2021-01-02 12:49 | disposition home health service (06) | DRG 177 ==
LOC: JER 12:30 → JERBED 16:03 → J4W 11-10 22:12 → JICU 11-14 00:13 → J4S 11-16 03:22
PROVIDERS: ADMIT Hospitalist; ATTEND Internal Medicine
PROC: 30233N1 Transfusion of Nonautologous Red Blood Cells into Peripheral Vein, Percutaneous Approach (ICD-10-PCS; 2020-11-13)
PROC: 06H03DZ Insertion of Intraluminal Device into Inferior Vena Cava, Percutaneous Approach (ICD-10-PCS; principal; 2020-11-14)
PROC: 0DH67UZ Insertion of Feeding Device into Stomach, Via Natural or Artificial Opening (ICD-10-PCS; 2020-12-03)
PROC: 0DH67UZ Insertion of Feeding Device into Stomach, Via Natural or Artificial Opening (ICD-10-PCS; 2020-12-08)
PROC: 0DH63UZ Insertion of Feeding Device into Stomach, Percutaneous Approach (ICD-10-PCS; 2020-12-09)
PROC: 3E0G76Z Introduction of Nutritional Substance into Upper GI, Via Natural or Artificial Opening (ICD-10-PCS; 2020-12-10)
DX: U07.1 COVID-19 (principal); I26.99 Other pulmonary embolism without acute cor pulmonale; J96.01 Acute respiratory failure with hypoxia; G93.41 Metabolic encephalopathy; J12.82 Pneumonia due to coronavirus disease 2019; Z68.41 Body mass index [BMI] 40.0-44.9, adult; N39.0 Urinary tract infection, site not specified; I82.431 Acute embolism and thrombosis of right popliteal vein; I82.443 Acute embolism and thrombosis of tibial vein, bilateral; N17.9 Acute kidney failure, unspecified; E87.2 Acidosis; I24.8 Other forms of acute ischemic heart disease; K92.2 Gastrointestinal hemorrhage, unspecified; D62 Acute posthemorrhagic anemia; E87.0 Hyperosmolality and hypernatremia; E87.1 Hypo-osmolality and hyponatremia; E46 Unspecified protein-calorie malnutrition; R44.3 Hallucinations, unspecified; J44.9 Chronic obstructive pulmonary disease, unspecified; I10 Essential (primary) hypertension; I25.2 Old myocardial infarction; Z79.4 Long term (current) use of insulin; E66.01 Morbid (severe) obesity due to excess calories; Z99.81 Dependence on supplemental oxygen; E86.0 Dehydration; E11.65 Type 2 diabetes mellitus with hyperglycemia; D64.9 Anemia, unspecified; E87.6 Hypokalemia; F32.9 Major depressive disorder, single episode, unspecified; L89.152 Pressure ulcer of sacral region, stage 2; R33.9 Retention of urine, unspecified; D72.829 Elevated white blood cell count, unspecified; E07.81 Sick-euthyroid syndrome; R62.7 Adult failure to thrive; R94.31 Abnormal electrocardiogram [ECG] [EKG]; R19.7 Diarrhea, unspecified; K76.0 Fatty (change of) liver, not elsewhere classified; K59.01 Slow transit constipation; H40.9 Unspecified glaucoma; N26.1 Atrophy of kidney (terminal)
CPT/HCPCS: 36415; 36430; 36511; 36600; 37191; 43752; 49440; 70450-TC; 71045-TC-FY; 74018-TC-FY; 74019-TC-FY; 76775-TC; 76856-TC; 80048; 80053; 80061; 81003; 82024; 82140; 82272; 82436; 82533; 82565; 82728; 82803; 82962; 83036; 83605; 83721; 83735; 83880; 84100; 84133; 84295; 84300; 84439; 84443; 84481; 84482; 84484; 85025; 85027; 85379; 85610; 85730; 86140; 86376; 86850; 86900; 86901; 86922; 87040; 87077; 87086; 87186; 87205; 87338; 87804; 93005; 93010; 93306-TC; 93970-TC; 94660; 94761; 97161-GP; 99291; C1769; C1880; C9803; J0131; J1644; P9038; P9058; U0003